=== PATIENT | female | born 1955 | race Caucasian/White ===

== ENCOUNTER 2016-08-11 16:55 | Emergency (ER) | payer MEDICARE, MEDICAID ==
[~2016-08-11] VITALS: Ht 170.2 cm; Wt 149.7 kg
[~2016-08-11 16:55] MED LIST: ALBU2.5V4 IH; AMLO5TAB2 PO; BUDE10.22 IH; BUDE6HFA IH; CRS350T PO; DCS100C PO; FEXO60TA PO; FURO20TA4 PO; FURO40TA4 PO; HYDR1TAB PO; INSU100I17 SQ; LISI40TA PO; MNTL10T PO; MORP60CA18 PO; MTL5T PO; NF-ESOM40C PO; PHEN15CA67 PO; PHENTERMINE PO; RT-COMBINH IH; THYR240T PO; TOPIRAMATE PO; WRF1T PO; WRF5T PO
--- OUTSIDE RECORDS SUMMARY | 2016-08-11 16:59 | XMS REPORT ---
Author Author SAMMY VENTURA eClinicalWorks Address Unknown Phone Unavailable Care Team Providers Care Pantry Attendant Name Role Phone SAMMY VENTURA CP Unavailable Allergies, Adverse Reactions, Alerts Substance Reaction Event Type Tetracycline HCl hives Drug Allergy Sulfamethoxazole-Trimethoprim lips swell Drug Allergy Penicillin V Potassium hives Drug Allergy Codeine Sulfate projectile vomiting Drug Allergy Problems Problem Type Condition Code Onset Dates Condition Status Problem Hypothyroidism, unspecified E03.9 Active Assessment Back muscle spasm M62.830 Active Problem High risk medication use Z79.899 Active Assessment High risk medication use Z79.899 Active Assessment Hypothyroidism, unspecified E03.9 Active Medications Medication Code System Code Instructions Start Date End Date Status Dosage Gabapentin [facility] [address]-57 600 MG Orally 2 times a day 1 tablet ProAir HFA [facility] [address]-88 108 (90 Base) MCG/ACT Inhalation every 4 hrs 2 puffs as needed Levothyroxine Sodium [facility] [address]-97 125 MCG Orally Once a day 1 tablet MS Contin [facility] [address]-16 30 MG Orally Nov 16, 2014 3 tabs BID x 3 days, 2 tabs am/3 tabs pm x 3 days, 2 tabs Bid x 3 days, 1 tab BID x 3days Albuterol Sulfate [facility] [address]-45 (2.5 MG/3ML) 0.083% Inhalation Three times a day 3 ml Baclofen [facility] [address]-89 20 MG Orally every 8 hrs Nov 16, 2014 Feb 14, 2015 1 tablet with food or milk Singulair [facility] [address]-05 10 MG Orally Once a day 1 tablet in the evening Amlodipine Besylate [facility] [address]-16 5 MG Orally Once a day 1 tablet NovoLog [facility] [address]-93 100 UNIT/ML Subcutaneous 3 times a day sliding scale Ibuprofen [facility] [address]-74 800 MG Orally Three times a day 1 tablet Lisinopril [facility] [address]-77 40 MG Orally Once a day 1 tablet Omeprazole [facility] [address]-46 40 MG Orally Once a day 1 capsule Combivent Respimat [facility] [address]-30 20-100 MCG/ACT Inhalation Four times a day 1 puff Procedures Procedure Coding System Code Date Office Visit, Est Pt., Level 3 CPT-4 27646 Nov 16, 2014 [facility] VISIT ESTABLISHED PATIENT CPT-4 G0467 Nov 16, 2014 Vital Signs Date/Time: Nov 16, 2014 Temperature 98.1 F Weight 248 lbs Height 65 in BMI 41.26 Index Blood Pressure Diastolic 78 mmHg Blood Pressure Systolic 134 mmHg Cardiac Monitoring Heart Rate 91 bpm Results No Known Results Summary Purpose eClinicalWorks Submission
--- OUTSIDE RECORDS SUMMARY | 2016-08-11 17:00 | XMS REPORT | Continuity of Care Document ---
Author Author [facility] Organization [facility] Address Unknown Phone Unavailable Allergies Active Description Code Type Severity Reaction Onset Reported/Identified Relationship to Patient Clinical Status Yes aspirin [id number] Drug Allergy Unknown NAUSEA 12/04/2011 Yes Penicillins [id number] Drug Allergy Unknown RASH 12/04/2011 Yes Sulfa (Sulfonamide Antibiotics) [id number] Drug Allergy Unknown RASH 12/04/2011 Yes tetracycline [id number] Drug Allergy Unknown RASH 12/04/2011 Medications Problems Date Dx Coded Attending Type Code Diagnosis Diagnosed By 12/06/2011 Ot 070.70 UNSPECIFIED VIRAL HEPATITIS C WITHOUT HE 12/06/2011 Ot 214.1 LIPOMA SKIN NEC 12/06/2011 Ot 250.00 DIAB TEREZA WO COMPL, TYPE II OR UNSPEC TY 12/06/2011 Ot 401.9 HYPERTENSION NOS 12/06/2011 Ot 428.0 CONGESTIVE HEART FAILURE NOS 12/06/2011 Ot 496 CHR AIRWAY OBSTRUCT NEC 12/06/2011 Ot 530.81 ESOPHAGEAL REFLUX 12/06/2011 Ot V58.61 ANTICOAGULANTS,LT,CURRENT USE 12/06/2011 Ot V58.69 OTH MED,LT,CURRENT USE 01/29/2015 Ot 214.1 01/29/2015 Ot 250.00 01/29/2015 Ot 401.9 01/29/2015 Ot 496 01/29/2015 Ot V15.82 01/29/2015 Ot V72.63 01/29/2015 Ot V72.83 01/29/2015 Ot V74.8 01/29/2015 KATJA REID MD Ot M51.16 INTERVERTEBRAL DISC DISORDERS W RADICULO 01/29/2015 KATJA REID MD Ot M53.3 SACROCOCCYGEAL DISORDERS, NOT ELSEWHERE 01/29/2015 KATJA REID MD Ot Z79.899 OTHER JAIL (CURRENT) DRUG THERAPY 03/15/2016 Ot 214.1 LIPOMA SKIN NEC 03/15/2016 Ot 250.00 DIAB TEREZA WO COMPL, TYPE II OR UNSPEC TY 03/15/2016 Ot 401.9 HYPERTENSION NOS 03/15/2016 Ot 496 CHR AIRWAY OBSTRUCT NEC 03/15/2016 Ot V15.82 HISTORY OF TOBACCO USE 03/15/2016 Ot V72.63 PRE-PROCEDURAL LABORATORY EXAMINATION 03/15/2016 Ot V72.83 EXAM PRE-OPERATIVE NEC 03/15/2016 Ot V74.8 SCREEN-BACTERIAL DIS NEC Procedures Results Encounters ACCT No. Visit Date/Time Discharge Status Pt. Type Provider Facility Loc./Unit Complaint [id number] 01/29/2015 07:56:00 2014 08:47:00 DIS Outpatient JEANETTE ERIC, KATJA Catalan [facility] CARD DISC DISORDER [id number] 03/21/2016 11:27:00 PEN Preadmit LEE GIVENS [facility] REHAB LT SHOULDER IMPINGEMENT SYNDROME [id number] 12/06/2011 05:31:00 Document Registration [id number] 12/04/2011 08:14:00 Document Registration
--- OUTSIDE RECORDS SUMMARY | 2016-08-11 17:00 | XMS REPORT ---
Author Author SAMMY VENTURA eClinicalWorks Address Unknown Phone Unavailable Care Team Providers Care Electric Utility Lineworker Name Role Phone SAMMY VENTURA CP Unavailable Allergies, Adverse Reactions, Alerts Substance Reaction Event Type Tetracycline HCl hives Drug Allergy Sulfamethoxazole-Trimethoprim lips swell Drug Allergy Penicillin V Potassium hives Drug Allergy Codeine Sulfate projectile vomiting Drug Allergy Problems Problem Type Condition ICD-9 Code Onset Dates Condition Status Assessment High risk medication use V58.69 Active Assessment Chronic hepatitis C 070.54 Active Assessment Hypothyroid 244.9 Active Medications Medication Code System Code Instructions Start Date End Date Status Dosage Levothyroxine Sodium [facility] [address]-54 125 MCG Orally Once a day 1 tablet Lisinopril [facility] [address]-78 40 MG Orally Once a day 1 tablet Amlodipine Besylate [facility] [address]-35 5 MG Orally Once a day 1 tablet NovoLog [facility] [address]-85 100 UNIT/ML Subcutaneous 3 times a day sliding scale Singulair [facility] [address]-09 10 MG Orally Once a day 1 tablet in the evening Albuterol Sulfate [facility] [address]-08 (2.5 MG/3ML) 0.083% Inhalation Three times a day 3 ml ProAir HFA [facility] [address]-41 108 (90 Base) MCG/ACT Inhalation every 4 hrs 2 puffs as needed Gabapentin [facility] [address]-77 600 MG Orally 2 times a day 1 tablet Omeprazole [facility] [address]-13 40 MG Orally Once a day 1 capsule Ibuprofen [facility] [address]-24 800 MG Orally Three times a day 1 tablet Combivent Respimat [facility] [address]-72 20-100 MCG/ACT Inhalation Four times a day 1 puff Morphine Sulfate [facility] [address]-10 60 MG Orally 2 times a day Nov 28, 2014 1 tablet Morphine Sulfate [facility] [address]-75 30 MG Orally 3 times a day 1 tablet as needed Soma [facility] [address]-45 350 MG Orally TID daily x 3 days then 1 tab BID x 3 days, then 1 tab daily x 3 days 1 tablet as needed Procedures Procedure Coding System Code Date No Charge CPT-4 10638 Oct 29, 2014 VENIPUNCT, ROUTINE* CPT-4 93231 Oct 29, 2014 LAB NOT BILLED BY [facility] CPT-4 NOBLL Oct 29, 2014 Office Visit, New Pt., Level 3 CPT-4 91846 Oct 29, 2014 [facility] VISIT NEW PATIENT CPT-4 G0466 Oct 29, 2014 Vital Signs Date/Time: Oct 29, 2014 Temperature 98.1 F Weight 243.0 lbs Height 65 in BMI 40.43 Index Blood Pressure Diastolic 98 mmHg Blood Pressure Systolic 156 mmHg Cardiac Monitoring Heart Rate 92 bpm Results Name Result Date Reference Range Unit Abnormality Flag ROUTINE VENIPUNCTURE HEP C PCR QUANT (Non-Graph) Summary Purpose eClinicalWorks Submission
--- OUTSIDE RECORDS SUMMARY | 2016-08-11 17:00 | XMS REPORT ---
Author Author SAMMY VENTURA [facility] eClinicalWorks Address Unknown Phone Unavailable Care Team Providers Care Node Js Developer Name Role Phone SAMMY VENTURA Unavailable Allergies, Adverse Reactions, Alerts Substance Reaction Event Type Tetracycline HCl hives Drug Allergy Sulfamethoxazole-Trimethoprim lips swell Drug Allergy Penicillin V Potassium hives Drug Allergy Codeine Sulfate projectile vomiting Drug Allergy Problems Problem Type Condition Code Onset Dates Condition Status Problem Hypothyroidism, unspecified E03.9 Active Assessment Other chronic pain G89.29 Active Problem High risk medication use Z79.899 Active Assessment Encounter for immunization Z23 Active Assessment Muscle spasm M62.838 Active Medications Medication Code System Code Instructions Start Date End Date Status Dosage MS Contin [facility] [address]-89 15 MG Orally every 12 hrsx 7 days then 1 tablet daily at bedtime x 7 days Nov 27, 2014 1 tablet Amlodipine Besylate [facility] [address]-05 5 MG Orally Once a day 1 tablet Levothyroxine Sodium [facility] [address]-11 125 MCG Orally Once a day 1 tablet ProAir HFA [facility] [address]-38 108 (90 Base) MCG/ACT Inhalation every 4 hrs 2 puffs as needed Gabapentin [facility] [address]-96 600 MG Orally 2 times a day 1 tablet NovoLog [facility] [address]-75 100 UNIT/ML Subcutaneous 3 times a day sliding scale Combivent Respimat [facility] [address]-94 20-100 MCG/ACT Inhalation Four times a day 1 puff Albuterol Sulfate [facility] [address]-76 (2.5 MG/3ML) 0.083% Inhalation Three times a day 3 ml Parafon Forte DSC [facility] [address]-18 500 MG Orally Three times a day NovFeb 25, 2015 1 tablet Omeprazole [facility] [address]-09 40 MG Orally Once a day 1 capsule MS Contin [facility] [address]-66 30 MG Orally Nov 16, 2014 3 tabs BID x 3 days, 2 tabs am/3 tabs pm x 3 days, 2 tabs Bid x 3 days, 1 tab BID x 3days Singulair [facility] [address]-16 10 MG Orally Once a day 1 tablet in the evening Ibuprofen [facility] [address]-21 800 MG Orally Three times a day 1 tablet Lisinopril [facility] [address]-55 40 MG Orally Once a day 1 tablet Procedures Procedure Coding System Code Date FLUARIX QUAD (3 & UP)-GSK-2014 CPT-4 70926 Nov 27, 2014 SINGLE IMMUNIZATION ADMIN CPT-4 48635 Nov 27, 2014 ADMN FLU VAC NO FEE SCHED SAME DAY CPT-4 G0008 Nov 27, 2014 Office Visit, Est Pt., Level 3 CPT-4 42302 Nov 27, 2014 [facility] VISIT ESTABLISHED PATIENT CPT-4 G0467 Nov 27, 2014 Vital Signs Date/Time: Nov 27, 2014 Temperature 98.0 F Weight 246 lbs Height 65 in BMI 40.93 Index Blood Pressure Diastolic 70 mmHg Blood Pressure Systolic 114 mmHg Cardiac Monitoring Heart Rate 88 bpm Results No Known Results Immunizations Vaccine Administration Date FLUARIX QUAD (3 & UP)-GSK-2014Nov 27, 2014 Summary Purpose eClinicalWorks Submission
--- NOTE | 2016-08-11 17:01 | ED Lower Extremity ---
General Stated Complaint: FOOT PAIN Source: patient Exam Limitations: no limitations History of Present Illness Time seen by provider: 17:00 Initial Comments To ER per EMS from home with one week of progressive left ankle pain after twisting it. Onset: just prior to arrival Pain/Injury Location: left ankle, left heel Method of Injury: twisted Modifying Factors: Worse With Movement Allergies and Home Medications Allergies Coded Allergies: Penicillins (Unverified Allergy, Unknown, RASH, 08/11/16) Sulfa (Sulfonamide Antibiotics) (Unverified Allergy, Unknown, RASH, ) aspirin (Unverified Allergy, Unknown, NAUSEA, 08/11/16) codeine (Verified Allergy, Unknown, 08/11/16) tetracycline (Unverified Allergy, Unknown, RASH, 08/11/16) Home Medications Albuterol Sulfate 0.83 Mg/Ml Solution, 0.83 MG IH DAILY, (Reported) Amlodipine Besylate 5 Mg Tablet, 5 MG PO DAILY, (Reported) Budesonide/Formoterol Fumarate 10.2 Gm Hfa.aer.ad, 2 PUFF IH BID, (Reported) Carisoprodol 350 Mg Tablet, 1 TAB PO TID, (Reported) Docusate Sodium 100 Mg Capsule, 100 MG PO DAILY PRN, (Reported) Esomeprazole Mag Trihydrate 40 Mg Capsule.dr, 1 CAP PO DAILY, (Reported) Fexofenadine Hcl 60 Mg Tablet, 2 EACH PO BID, (Reported) Furosemide 20 Mg Tablet, 1 EACH PO DAILY, (Reported) Hydrocodone Bit/Acetaminophen 1 Each Tablet, 1-2 EACH PO Q4-6HRS PRN, (Reported) MAY TAKE 1 OR 2 TABS BY MOUTH EVERY 4-6 HRS NEEDED FOR BREAKTHROUGH PAIN. DO NOT EXCEED 3000 MG TYLENOL (ACETAMINOPHEN)IN 24 HR PERIOD Insulin Aspart 100 Unit/1 Ml Insuln.pen, 5 UNIT SQ SLIDING SCALE PRN, (Reported) USES SLIDING SCALE TO DOSE Ipratropium/Albuterol Sulfate 14.7 Gm Aer.w.adap, 2 PUFF IH Q8HR PRN, (Reported) Lisinopril 40 Mg Tablet, 40 MG PO DAILY, (Reported) Metolazone 5 Mg Tab, 1 EACH PO DAILY, (Reported) Montelukast Sodium 10 Mg Tablet, 1 TAB PO DAILY, (Reported) Morphine Sulfate 60 Mg Cap.er.pel, 60 MG PO BID, (Reported) Phentermine Hcl 15 Mg Capsule, 30 MG PO DAILY, (Reported) CURRENTLY NOT TAKING Thyroid,Pork 240 Mg Tablet, 240 MG PO DAILY, (Reported) Warfarin Sod 1 Mg Tab, 1 MG PO DAILY@18, (Reported) [Topiramate/Phenter] , 1 TAB PO DAILY, (Reported) Constitutional: see HPI EENTM: see HPI Respiratory: no symptoms reported Cardiovascular: no symptoms reported Genitourinary: no symptoms reported Musculoskeletal: see HPI Skin: no symptoms reported Psychiatric/Neurological: No Symptoms Reported Past Bzahgxx-Mulajg-Yyxtow Hx Immunizations Up To Date Date of Pneumonia Vaccine: Feb 12, 2009 Respiratory Hx Respiratory Disorders: Yes Cardiovascular Hx Cardiac Disorders: Yes (CHF) Neurological Hx Neurological Disorders: Yes (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, CAUSES FREQ HEADACHES) Genitourinary Hx Genitourinary Disorders: Yes (IN AUGUST IN HOSITAL WITH KIDNEY INFECTION) Gastrointestinal Hx Gastrointestinal Disorders: Yes (APPY) Musculoskeletal Hx Musculoskeletal Disorders: Yes (SEVERAL BROKEN BONE, DDD IN BACK) Endocrine Hx Endocrine Disorders: Yes HEENT HX ENT Disorders: Yes (NO TEETH) Physical Exam Vital Signs Vital Sign - Last 12Hours 08/11/16 17:01 Temp 98.0 Pulse 89 Resp 16 B/P (MAP) 145/87 Pulse Ox 91 Capillary Refill : General Appearance: WD/WN, no apparent distress HEENT: PERRL/EOMI, normal ENT inspection Neck: non-tender, full range of motion Respiratory: no respiratory distress, no accessory muscle use Gastrointestinal: non tender, soft Hips: bilateral hip non-tender, bilateral hip normal inspection, bilateral hip normal range of motion Legs: bilateral leg non-tender, bilateral leg normal inspection, bilateral leg normal range of motion Knees: bilateral knee non-tender, bilateral knee normal inspection, bilateral knee normal range of motion Ankles: left ankle pain, left ankle soft tissue tenderness, left ankle other ( there is no swelling or ecchymosis or erythema at this time. 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 Decision time for Depature: 17:45 Referrals: LEE GIVENS (PCP) Primary Care Physician [facility] (Family) Primary Care Physician Patient Instructions: Ankle Sprain (DC) Add. Discharge Instructions: 1. Daniel wrap to the ankle 2. Follow-up with your doctor next week. If you have persistent pain or instability of the ankle U should discuss an MRI 2. FLETCHER PETE APRN Aug 11, 2016 17:01
[2016-08-11 17:30] VITALS: BP 142/82
--- NOTE | 2016-08-11 17:34 | Diagnostic Imaging Report ---
INDICATION: Pain after fall. EXAMINATION: Three views of the left ankle were obtained. FINDINGS: The alignment is normal. There is no fracture or dislocation. Soft tissues are unremarkable. IMPRESSION: No focal abnormality of the left ankle. Dictated by: Dictated on workstation # [id number]
[2016-08-11] MEDS ORDERED: HYDROcodone/APAP 5 MG/325 MG (LORTAB) TAB PO ONE (18:00)
== END 2016-08-11 17:30 | disposition home or self-care (01) ==
LOC: EDUNIT# 16:55 → ER 16:56
DX: S93.402A Sprain of unspecified ligament of left ankle, initial encounter (principal); I50.9 Heart failure, unspecified; M51.9 Unspecified thoracic, thoracolumbar and lumbosacral intervertebral disc disorder; Z87.09 Personal history of other diseases of the respiratory system; Z79.01 Long term (current) use of anticoagulants; Z89.422 Acquired absence of other left toe(s); X50.0XXA Overexertion from strenuous movement or load, initial encounter
CPT/HCPCS: 73610; 99283

== ENCOUNTER → 2016-08-17 | Outpatient (CLI) | payer MEDICARE, MEDICAID ==
--- NOTE | 2016-08-17 17:25 | Diagnostic Imaging Report ---
INDICATION: Left ankle strain, leg pain, history of DVT. EXAMINATION: Left lower extremity venous Doppler, 08/17/2016. TECHNIQUE: Waveform and spectral analysis of the lower extremity venous structures. FINDINGS: There is no evidence for deep vein thrombosis with normal compressibility, augmentation and spontaneity of all visualized venous structures. 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 IMPRESSION: 1. No evidence for deep vein thrombosis. 2. 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 However, this could be followed clinically and better evaluated with MRI if clinically warranted on a nonemergent basis. Dictated by: Dictated on workstation # [id number]
== END ==
LOC: RAD 16:57
PROVIDERS: ATTEND Nurse Practitioner Family
DX: M71.22 Synovial cyst of popliteal space [Baker], left knee (principal); Z86.718 Personal history of other venous thrombosis and embolism; M79.672 Pain in left foot

== ENCOUNTER → 2016-08-25 | Outpatient (CLI) | payer MEDICARE, MEDICAID ==
--- NOTE | 2016-08-25 10:53 | Diagnostic Imaging Report ---
PROCEDURE: MRI left joint lower extremity without contrast. TECHNIQUE: Multiplanar, multisequence non contrast-enhanced MRI of the left ankle was accomplished. INDICATION: Left ankle pain and injury. FINDINGS: There is mild thickening in the Achilles tendon with increased signal. This is suggestive of tendinosis or intrasubstance low-grade partial tear. The peroneal tendons appear unremarkable. The flexor hallucis longus demonstrate a small amount of fluid in the tendon sheath at the level of the joint probably from communication with the joint fluid rather than related to injury or tenosynovitis. The other flexor tendons appear unremarkable. The extensors tendons also appear unremarkable. There is subcutaneous edema seen around the dorsum of the ankle foot junction area. The joint alignment is satisfactory. There is minimal marrow signal abnormality in the distal fibula, could related to a mild contusion. The anterior and posterior talofibular ligaments appear intact. The calcaneofibular ligament appears intact. The deltoid ligament components appear grossly unremarkable. The plantar fascia demonstrates minimal thickening and adjacent edema. This could relate to injury or plantar fasciitis. There is increased signal along the calcaneonavicular ligament, may relate to a sprain. IMPRESSION: 1. Low-grade intrasubstance tear or tendinosis within the distal Achilles tendon. 2. Mild sprain in the calcaneonavicular ligament. 3. Slight edema along the plantar fascia could relate to a sprain or mild plantar fasciitis. 4. Minimal contusion in the distal fibula. Dictated by: Dictated on workstation # [id number]
--- NOTE | 2016-08-25 11:39 | Diagnostic Imaging Report ---
PROCEDURE: MR imaging left lower extremity without contrast. TECHNIQUE: Multiplanar, multisequence non contrast enhanced MR imaging of the left lower extremity was accomplished. INDICATION: Left ankle and foot pain after injury. FINDINGS: There is a prior amputation of the great toe at the metatarsophalangeal joint level. There is a deformity and subluxation along the second metatarsophalangeal joint with angulation in a varus direction. There is associated prominent bone marrow edema in the head of the second metatarsal which is likely reactive and degenerative, with contribution from mechanical stress secondary to the joint deformity. There is also bone marrow edema within the adjacent proximal phalanx of the third toe which is involved in mild varus deformity and is abutting the head of the second metatarsal and the signal abnormality is likely stress related to the altered anatomy and degenerative. There is no evidence of an acute fracture. The Lisfranc ligament appears intact. The joint alignment at the tarsometatarsal joints is normal. There is subcutaneous edema around the foot most prominent in the midfoot dorsally and along the plantar aspect. Some of the edema extends near the flexor and extensor tendons without evidence of a tendon injury. There is a focal loculated fluid measuring 1.3 x 0.5 x 1.8 CM seen along the plantar aspect of the head of the first metatarsal superficial to the tendinous insertion and ligament at this level likely related to a ganglion cyst. IMPRESSION: 1. There is nonspecific soft tissue edema mostly around the midfoot, could be posttraumatic. 2. Bone marrow edema in the head of the second metatarsal and proximal phalanx of the third toe is probably stress related and reactive to the altered anatomy and deformities as described above. No acute fracture or ligamentous injury identified. 3. Suggestion of a ganglion cyst along the plantar aspect at the level of the head of the first metatarsal. Dictated by: Dictated on workstation # [id number]
== END ==
LOC: RAD 09:11
PROVIDERS: ATTEND Nurse Practitioner Family
DX: M67.972 Unspecified disorder of synovium and tendon, left ankle and foot (principal); S93.692A Other sprain of left foot, initial encounter; M85.862 Other specified disorders of bone density and structure, left lower leg; X58.XXXA Exposure to other specified factors, initial encounter; Y99.8 Other external cause status
CPT/HCPCS: 73721

== ENCOUNTER 2016-12-12 21:15 | Emergency (ER) | payer MEDICARE, MEDICAID ==
[~2016-12-12] VITALS: Ht 170.2 cm; Wt 149.7 kg
[2016-12-12] MEDS ORDERED: TETANUS,DIPTH,PERTUSS P/F (BOOSTRIX) 0.5 ML VIAL IM ONE (21:16)
[2016-12-12] MEDS ORDERED: LIDOCAINE 1% INJ 20 ML (XYLOCAINE) VIAL ONE (21:16)
--- OUTSIDE RECORDS SUMMARY | 2016-12-12 21:23 | XMS REPORT ---
Author Author KEITH HINKLE Organization [facility] Address [address] [place] [address] Care Team Providers Care Mottler Operator Name Role Phone KEITH HINKLE Unavailable PROBLEMS Type Condition ICD9-CM Code [id number] Code Onset Dates Condition Status SNOMED Code Problem Pain in right shoulder M25.511 Active 907777203 Problem Essential hypertension I10 Active 35085866 Problem Other chronic pain G89.29 Active 62813801 Problem Onychomycosis B35.1 Active 395538990 Problem Type 2 diabetes mellitus with diabetic neuropathy, unspecified ad terminal makeup operator insulin use status E11.40 Active 31063769 Problem Renal insufficiency N28.9 Active 657365535 Problem Acquired hypothyroidism E03.9 Active 168287671 Problem Seasonal allergic rhinitis due to pollen J30.1 Active 96633066 Problem Type 2 diabetes mellitus with other skin complications E11.628 Active 95423653 Problem Thrombocytopenia D69.6 Active 762224641 Problem High risk medication use Z79.899 Active 015167675 Problem Hepatitis C antibody positive in blood R76.8 Active 322813552 Problem [facility] current use of insulin Z79.4 Active 675754529 Problem Chronic obstructive pulmonary disease, unspecified COPD type J44.9 Active 05045288 Problem Cervicalgia M54.2 Active 8421958721311 Problem Type 2 diabetes mellitus with diabetic polyneuropathy E11.42 Active 94450359 Problem Pain in left shoulder M25.512 Active 15778370 ALLERGIES Unknown Allergies SOCIAL HISTORY No smoking Hx information available PLAN OF CARE VITAL SIGNS MEDICATIONS Medication Instructions Dosage Frequency Start Date End Date Duration Status Test strips Test Strips as directed Feb, Active Glucometer 1 as directed Feb, Active Bydureon 2 MG Subcutaneous once weekly Inject 2mg Feb, Active RESULTS No Results PROCEDURES No Known procedures IMMUNIZATIONS No Known Immunizations
--- OUTSIDE RECORDS SUMMARY | 2016-12-12 21:23 | XMS REPORT ---
Author Author KEITH HINKLE [facility] Address [address] [place] [address] Care Team Providers Care Hay Stacker Name Role Phone KEITH HINKLE Unavailable PROBLEMS Type Condition ICD9-CM Code [id number] Code Onset Dates Condition Status SNOMED Code Problem Acquired hypothyroidism E03.9 Active 206164956 Problem rn long term care current use of insulin Z79.4 Active 690853238 Problem Essential hypertension I10 Active 32014387 Problem Type 2 diabetes mellitus with diabetic neuropathy, unspecified termite renewal inspector insulin use status E11.40 Active 14147776 Problem Onychomycosis B35.1 Active 981418342 Problem Renal insufficiency N28.9 Active 782704287 Problem Type 2 diabetes mellitus with diabetic polyneuropathy E11.42 Active 13247477 Problem Type 2 diabetes mellitus with other skin complications E11.628 Active 72035541 Problem Seasonal allergic rhinitis due to pollen J30.1 Active 48340262 Problem Thrombocytopenia D69.6 Active 441778456 Problem High risk medication use Z79.899 Active 278327116 Problem Cervicalgia M54.2 Active 3046347627685 Problem Other chronic pain G89.29 Active 37210983 Problem Pain in right shoulder M25.511 Active 244971664 Problem Hepatitis C antibody positive in blood R76.8 Active 415839840 Problem Pain in left shoulder M25.512 Active 80558398 Problem Chronic obstructive pulmonary disease, unspecified COPD type J44.9 Active 54279496 ALLERGIES Substance Reaction Event Type Date Status Tetracycline HCl hives Drug Allergy Jan, Active Sulfamethoxazole-Trimethoprim lips swell Drug Allergy Jan, Active Penicillin V Potassium hives Drug Allergy Jan, Active Codeine Sulfate projectile vomiting Drug Allergy Jan, Active SOCIAL HISTORY No smoking Hx information available PLAN OF CARE Activity Details Follow Up 3 Weeks Reason:DM/Thyroid VITAL SIGNS Height 65 in 2016-02-10 Weight 287.8 lbs 2016-02-10 Temperature 97.8 degrees Fahrenheit 2016-02-10 Heart Rate 94 bpm 2016-02-10 Respiratory Rate 20 2016-02-10 BMI 47.89 kg/m2 2016-02-10 Blood pressure systolic 162 mmHg 2016-02-10 Blood pressure diastolic 92 mmHg 2016-02-10 MEDICATIONS Medication Instructions Dosage Frequency Start Date End Date Duration Status Losartan Potassium 50 MG Orally Once a day 1 tablet 24h Jan, 30 day(s) Active Gabapentin 800 MG Orally 2 times a day 1 tablet 12h Active Cyclobenzaprine HCl 10 MG Orally Three times a day 1 tablet 8h Active RESULTS Name Result Date Reference Range TSH 2016-02-10 TSH 48.530 0.450-4.500 CBC 2016-02-10 WBC 5.4 3.4-10.8 RBC 4.83 3.77-5.28 Hemoglobin 14.9 11.1-15.9 Hematocrit 44.8 34.0-46.6 MCV 93 79-97 MCH 30.8 26.6-33.0 MCHC 33.3 31.5-35.7 RDW 15.1 12.3-15.4 Platelets 118 150-379 Neutrophils 70 Lymphs 22 Monocytes 7 Eos 1 Basos 0 Immature Cells Neutrophils (Absolute) 3.7 1.4-7.0 Lymphs (Absolute) 1.2 0.7-3.1 Monocytes(Absolute) 0.4 0.1-0.9 Eos (Absolute) 0.0 0.0-0.4 Baso (Absolute) 0.0 0.0-0.2 Immature Granulocytes 0 Immature Grans (Abs) 0.0 0.0-0.1 NRBC Hematology Comments: Note: LIPID PANEL 2016-02-10 Cholesterol, Total 153 100-199 Triglycerides 118 0-149 HDL Cholesterol 45 >39 VLDL Cholesterol Philippe 24 5-40 LDL Cholesterol Calc 84 0-99 CMP 2016-02-10 Glucose, Serum 75 65-99 BUN 19 6-24 Creatinine, Serum 1.16 0.57-1.00 eGFR If NonAfricn Am 52 >59 eGFR If Africn Am 60 >59 BUN/Creatinine Ratio 16 9-23 Sodium, Serum 138 134-144 Potassium, Serum 4.4 3.5-5.2 Chloride, Serum 102 96-106 Carbon Dioxide, Total 23 18-29 Calcium, Serum 10.1 8.7-10.2 Protein, Total, Serum 8.7 6.0-8.5 Albumin, Serum 4.2 3.5-5.5 Globulin, Total 4.5 1.5-4.5 A/G Ratio 0.9 1.1-2.5 Bilirubin, Total 0.6 0.0-1.2 Alkaline Phosphatase, S 121 39-117 AST (SGOT) 37 0-40 ALT (SGPT) 29 0-32 A1C (IN HOUSE) 2016-02-10 A1C IN HOUSE 5.3 4.3 - 5.6 % Previous A1c Lot [id number] Exp date HEP C RNA QUANT ([facility] ONLY) Xray : Shoulder, Left 2 view (IN HOUSE) 2016-02-10 Xray : Shoulder, Right 2 view (IN HOUSE) 2016-02-10 Xray : Spine, Cervical (IN HOUSE) 2016-02-10 PROCEDURES Procedure Date Ordered Related Diagnosis Body Site GLYCATED HEMOGLOBIN TEST Feb 10, 2016 [facility], [facility] VENIPUNCT, ROUTINE* Feb 10, 2016 Office Visit, Est Pt., Level 5 Feb 10, 2016 X-RAY EXAM OF SHOULDER Feb 10, 2016 HEP C RNA QUANT ([facility] ONLY) Feb 10, 2016 [facility]Q VISIT ESTABLISHED PATIENT Feb 10, 2016 X-RAY EXAM OF NECK SPINE Feb 10, 2016 IMMUNIZATIONS No Known Immunizations
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
--- OUTSIDE RECORDS SUMMARY | 2016-12-12 21:25 | XMS REPORT ---
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 E11.40 Active 82551438 Problem Renal insufficiency N28.9 Active 478441268 Problem Acquired hypothyroidism E03.9 Active 358061769 Problem Seasonal allergic rhinitis due to pollen J30.1 Active 40294635 Problem Type 2 diabetes mellitus with other skin complications E11.628 Active 30951852 Problem Thrombocytopenia D69.6 Active 226588624 Problem High risk medication use Z79.899 Active 389728118 Problem Hepatitis C antibody positive in blood R76.8 Active 376413441 Problem [facility] current use of insulin Z79.4 Active 932821686 Problem Chronic obstructive pulmonary disease, unspecified COPD type J44.9 Active 45425834 Problem Cervicalgia M54.2 Active 0774450986528 Problem Type 2 diabetes mellitus with diabetic polyneuropathy E11.42 Active 69662720 Problem Pain in left shoulder M25.512 Active 12724378 ALLERGIES Unknown Allergies SOCIAL HISTORY No smoking Hx information available PLAN OF CARE VITAL SIGNS MEDICATIONS Medication Instructions Dosage Frequency Start Date End Date Duration Status Levothyroxine Sodium 125 mcg Orally Once a day 1 tablet 24h 30 days Active Cyclobenzaprine HCl 10 mg Orally twice a day as needed 1 tablet Feb, Feb, 21 days Active RESULTS No Results PROCEDURES No Known procedures IMMUNIZATIONS No Known Immunizations
--- OUTSIDE RECORDS SUMMARY | 2016-12-12 21:27 | XMS REPORT | Continuity of Care Document ---
Author Author [facility] Organization [facility] Address Unknown Phone Unavailable Allergies Active Description Code Type Severity Reaction Onset Reported/Identified Relationship to Patient Clinical Status Yes aspirin [id number] Drug Allergy Unknown NAUSEA 08/11/2016 Yes codeine [id number] Drug Allergy Unknown N/A 08/11/2016 Yes Penicillins [id number] Drug Allergy Unknown RASH 08/11/2016 Yes Sulfa (Sulfonamide Antibiotics) [id number] Drug Allergy Unknown RASH 08/11/2016 Yes tetracycline [id number] Drug Allergy Unknown RASH 08/11/2016 Medications Problems Date Dx Coded Attending Type [...] 01/29/2015 KATJA REID MD Ot Z79.899 OTHER SUPERVISOR SHEARING (CURRENT) DRUG THERAPY 03/15/2016 Ot 214.1 LIPOMA SKIN NEC 03/15/2016 Ot 250.00 DIAB TEREZA WO COMPL, TYPE II OR UNSPEC TY 03/15/2016 Ot 401.9 HYPERTENSION NOS 03/15/2016 Ot 496 CHR AIRWAY OBSTRUCT NEC 03/15/2016 Ot V15.82 HISTORY OF TOBACCO USE 03/15/2016 Ot V72.63 PRE-PROCEDURAL LABORATORY EXAMINATION 03/15/2016 Ot V72.83 EXAM PRE-OPERATIVE NEC 03/15/2016 Ot V74.8 SCREEN-BACTERIAL DIS NEC 08/11/2016 FLETCHER PETE APRN Ot I50.9 HEART FAILURE, UNSPECIFIED 08/11/2016 FLETCHER PETE APRN Ot M25.572 PAIN IN LEFT ANKLE AND JOINTS OF LEFT FO 08/11/2016 FLETCHER PETE APRN Ot M51.9 UNSP THORACIC, THORACOLUM AND LUMBOSACR 08/11/2016 FLETCHER PETE APRN Ot S93.402A SPRAIN OF UNSPECIFIED LIGAMENT OF LEFT A 08/11/2016 FLETCHER PETE APRN Ot X50.0XXA OVEREXERTION FROM STRENUOUS MOVEMENT OR 08/11/2016 FLETCHER PETE APRN Ot Z79.01 [facility] (CURRENT) USE OF ANTICOAGULANT 08/11/2016 FLETCHER PETE APRN Ot Z87.09 PERSONAL HISTORY OF OTHER DISEASES OF TH 08/11/2016 FLETCHER PETE APRN Ot Z89.422 ACQUIRED ABSENCE OF OTHER LEFT TOE(S) 08/14/2016 FLETCHER PETE APRN Ot I50.9 HEART FAILURE, UNSPECIFIED 08/14/2016 FLETCHER PETE APRN Ot M25.572 PAIN IN LEFT ANKLE AND JOINTS OF LEFT FO 08/14/2016 FLETCHER PETE APRN Ot M51.9 UNSP THORACIC, THORACOLUM AND LUMBOSACR 08/14/2016 FLETCHER PETE APRN Ot S93.402A SPRAIN OF UNSPECIFIED LIGAMENT OF LEFT A 08/14/2016 FLETCHER PETE APRN Ot X50.0XXA OVEREXERTION FROM STRENUOUS MOVEMENT OR 08/14/2016 FLETCHER PETE APRN Ot Z79.01 [facility] (CURRENT) USE OF ANTICOAGULANT 08/14/2016 FLETCHER PETE APRN Ot Z87.09 PERSONAL HISTORY OF OTHER DISEASES OF 08/14/2016 FLETCHER PETE APRN Ot Z89.422 ACQUIRED ABSENCE OF OTHER LEFT TOE(S) 08/17/2016 FLETCHER PETE APRN Ot I50.9 HEART FAILURE, UNSPECIFIED 08/17/2016 FLETCHER PETE APRN Ot M25.572 PAIN IN LEFT ANKLE AND JOINTS OF LEFT FO 08/17/2016 FLETCHER PETE APRN Ot M51.9 UNSP THORACIC, THORACOLUM AND LUMBOSACR 08/17/2016 FLETCHER PETE APRN Ot S93.402A SPRAIN OF UNSPECIFIED LIGAMENT OF LEFT A 08/17/2016 FLETCHER PETE APRN Ot X50.0XXA OVEREXERTION FROM STRENUOUS MOVEMENT OR 08/17/2016 FLETCHER PETE APRN Ot Z79.01 [facility] (CURRENT) USE OF ANTICOAGULANT 08/17/2016 FLETCHER PETE APRN Ot Z87.09 PERSONAL HISTORY OF OTHER DISEASES OF TH 08/17/2016 FLETCHER PETE APRN Ot Z89.422 ACQUIRED ABSENCE OF OTHER LEFT TOE(S) 08/17/2016 Ot 214.1 LIPOMA SKIN NEC 08/17/2016 Ot 250.00 DIAB TEREZA WO COMPL, TYPE II OR UNSPEC TY 08/17/2016 Ot 401.9 HYPERTENSION NOS 08/17/2016 Ot 496 CHR AIRWAY OBSTRUCT NEC 08/17/2016 Ot V15.82 HISTORY OF TOBACCO USE 08/17/2016 Ot V72.63 PRE-PROCEDURAL LABORATORY EXAMINATION 08/17/2016 Ot V72.83 EXAM PRE-OPERATIVE NEC 08/17/2016 Ot V74.8 SCREEN-BACTERIAL DIS NEC 08/17/2016 JODI JACOB TELEPHONE SURVEYOR Ot M79.672 PAIN IN LEFT FOOT 08/18/2016 JODI JACOB TELEPHONE SURVEYOR Ot M71.22 SYNOVIAL CYST OF POPLITEAL SPACE [[place] ] 08/18/2016 JODI JACOB TELEPHONE SURVEYOR Ot M79.672 PAIN IN LEFT FOOT 08/18/2016 JODI JACOB APRN Ot Z86.718 PERSONAL HISTORY OF OTHER VENOUS THROMBO 08/31/2016 JODI JACOB TELEPHONE SURVEYOR Ot M67.972 UNSP DISORDER OF SYNOVIUM AND TENDON, LE 08/31/2016 JODI JACOB APRN Ot M85.862 OTH DISRD OF BONE DENSITY AND STRUCTURE , 08/31/2016 NIDIA, JODI M TELEPHONE SURVEYOR Ot S93.692A OTHER SPRAIN OF LEFT FOOT, INITIAL ENCOU 08/31/2016 JODI JACOB TELEPHONE SURVEYOR Ot X58.XXXA EXPOSURE TO OTHER SPECIFIED FACTORS, INI 08/31/2016 JODI JACOB TELEPHONE SURVEYOR Ot Y99.8 OTHER EXTERNAL CAUSE STATUS 09/08/2016 JODI JACOB TELEPHONE SURVEYOR Ot M71.22 SYNOVIAL CYST OF POPLITEAL SPACE [[place] ] 09/08/2016 JODI JACOB TELEPHONE SURVEYOR Ot M79.672 PAIN IN LEFT FOOT 09/08/2016 JODI JACOB TELEPHONE SURVEYOR Ot Z86.718 PERSONAL HISTORY OF OTHER VENOUS THROMBO 09/15/2016 JODI JACOB TELEPHONE SURVEYOR Ot M67.972 UNSP DISORDER OF SYNOVIUM AND TENDON, LE 09/15/2016 JODI JACOB TELEPHONE SURVEYOR Ot M85.862 OTH DISRD OF BONE DENSITY AND STRUCTURE , 09/15/2016 JODI JACOB TELEPHONE SURVEYOR Ot S93.692A OTHER SPRAIN OF LEFT FOOT, INITIAL ENCOU 09/15/2016 JODI JACOB TELEPHONE SURVEYOR Ot X58.XXXA EXPOSURE TO OTHER SPECIFIED FACTORS, INI 09/15/2016 JODI JACOB TELEPHONE SURVEYOR Ot Y99.8 OTHER EXTERNAL CAUSE STATUS 09/15/2016 JODI JACOB TELEPHONE SURVEYOR Ot M71.22 SYNOVIAL CYST OF POPLITEAL SPACE [[place] ] 09/15/2016 JODI JACOB TELEPHONE SURVEYOR Ot M79.672 PAIN IN LEFT FOOT 09/15/2016 JODI JACOB TELEPHONE SURVEYOR Ot Z86.718 PERSONAL HISTORY OF OTHER VENOUS THROMBO 09/22/2016 JODI JACOB TELEPHONE SURVEYOR Ot M67.972 UNSP DISORDER OF SYNOVIUM AND TENDON, LE 09/22/2016 JODI JACOB TELEPHONE SURVEYOR Ot M85.862 OTH DISRD OF BONE DENSITY AND STRUCTURE , 09/22/2016 JODI JACOB TELEPHONE SURVEYOR Ot S93.692A OTHER SPRAIN OF LEFT FOOT, INITIAL ENCOU 09/22/2016 JODI JACOB TELEPHONE SURVEYOR Ot X58.XXXA EXPOSURE TO OTHER SPECIFIED FACTORS, INI 09/22/2016 JODI JACOB TELEPHONE SURVEYOR Ot Y99.8 OTHER EXTERNAL CAUSE STATUS Procedures Results Encounters ACCT No. Visit Date/Time Discharge Status Pt. Type Provider Facility Loc./Unit Complaint [id number] 08/25/2016 09:11:00 2016 23:59:59 CLS Outpatient JODI JACOB TELEPHONE SURVEYOR [facility] RAD LEFT ANKLE INJ [id number] 08/17/2016 16:57:00 2016 23:59:59 CLS Outpatient JODI JACOB TELEPHONE SURVEYOR [facility] RAD HX OF DVT, ERYTHEMA [id number] 08/11/2016 16:56:00 2016 17:30:00 DIS Emergency FLETCHER PETE TELEPHONE SURVEYOR [facility] ER FOOT PAIN [id number] 03/21/2016 11:27:00 2016 23:59:59 CLS Preadmit LEE GIVENS [facility] REHAB LT SHOULDER IMPINGEMENT SYNDROME [id number] 01/29/2015 07:56:00 2014 08:47:00 DIS Outpatient KATJA REID MD [facility] CARD DISC DISORDER [id number] 12/06/2011 05:31:00 Document Registration [id number] 12/04/2011 08:14:00 Document Registration
--- NOTE | 2016-12-12 21:44 | ED Head Injury ---
General Chief Complaint: Laceration Stated Complaint: HEAD LACERATION FROM TREE LIMB Nursing Triage Note: reports grandkids playing with sticks and were fighting with them like swords and accidently got hit in the head Source: patient Exam Limitations: no limitations History of Present Illness Time seen by provider: 21:39 Initial Comments The patient is a 61-year-old white female who presents with her daughter. Her grandchildren were apparently using sticks from the yard to sword fight. She walked too close to the tidy and was struck on the left occipital area. This staggered her but did not cause her to fall. Occurred: just prior to arrival Location: occipital Method of Injury: direct blow Loss of Consciousness: no loss of consciousness Allergies and Home Medications Allergies Coded Allergies: Penicillins (Unverified Allergy, Unknown, RASH, 08/11/16) Sulfa (Sulfonamide Antibiotics) (Unverified Allergy, Unknown, RASH, ) aspirin (Unverified Allergy, Unknown, NAUSEA, 08/11/16) codeine (Verified Allergy, Unknown, 08/11/16) tetracycline (Unverified Allergy, Unknown, RASH, 08/11/16) Home Medications Albuterol Sulfate 0.83 Mg/Ml Solution, 0.83 MG IH DAILY, (Reported) Amlodipine Besylate 5 Mg Tablet, 5 MG PO DAILY, (Reported) Budesonide/Formoterol Fumarate 10.2 Gm Hfa.aer.ad, 2 PUFF IH BID, (Reported) Carisoprodol 350 Mg Tablet, 1 TAB PO TID, (Reported) Docusate Sodium 100 Mg Capsule, 100 MG PO DAILY PRN, (Reported) Esomeprazole Mag Trihydrate 40 Mg Capsule.dr, 1 CAP PO DAILY, (Reported) Fexofenadine Hcl 60 Mg Tablet, 2 EACH PO BID, (Reported) Furosemide 20 Mg Tablet, 1 EACH PO DAILY, (Reported) Hydrocodone Bit/Acetaminophen 1 Each Tablet, 1-2 EACH PO Q4-6HRS PRN, (Reported) MAY TAKE 1 OR 2 TABS BY MOUTH EVERY 4-6 HRS NEEDED FOR BREAKTHROUGH PAIN. DO NOT EXCEED 3000 MG TYLENOL (ACETAMINOPHEN)IN 24 HR PERIOD Insulin Aspart 100 Unit/1 Ml Insuln.pen, 5 UNIT SQ SLIDING SCALE PRN, (Reported) USES SLIDING SCALE TO DOSE Ipratropium/Albuterol Sulfate 14.7 Gm Aer.w.adap, 2 PUFF IH Q8HR PRN, (Reported) Lisinopril 40 Mg Tablet, 40 MG PO DAILY, (Reported) Metolazone 5 Mg Tab, 1 EACH PO DAILY, (Reported) Montelukast Sodium 10 Mg Tablet, 1 TAB PO DAILY, (Reported) Morphine Sulfate 60 Mg Cap.er.pel, 60 MG PO BID, (Reported) Phentermine Hcl 15 Mg Capsule, 30 MG PO DAILY, (Reported) CURRENTLY NOT TAKING Thyroid,Pork 240 Mg Tablet, 240 MG PO DAILY, (Reported) Warfarin Sod 1 Mg Tab, 1 MG PO DAILY@18, (Reported) [Topiramate/Phenter] , 1 TAB PO DAILY, (Reported) Constitutional: see HPI Eyes: No Symptoms Reported Ears, Nose, Mouth, Throat: no symptoms reported Respiratory: cough, short of breath Cardiovascular: no symptoms reported Gastrointestinal: no symptoms reported Genitourinary: no symptoms reported Musculoskeletal: no symptoms reported Skin: no symptoms reported Psychiatric/Neurological: No Symptoms Reported Endocrine: No Symptoms Reported Past [place]-Fxutlm-Yowgsm Hx Patient Social History Alcohol Use: Denies Use Recreational Drug Use: No Smoking Status: Current Everyday Smoker Type Used: Cigarettes Recent Foreign Travel: No Contact w/Someone Who Travel: No Recent Infectious Disease Expo: No Physical Abuse: No Sexual Abuse: No Immunizations Up To Date Date of Pneumonia Vaccine: Feb 12, 2009 Surgeries History of Surgeries: Yes Surgeries: Appendectomy Respiratory History of Respiratory Disorde: Yes Respiratory Disorders: COPD Cardiovascular History of Cardiac Disorders: Yes (CHF) Neurological History of Neurological Disord: Yes (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, CAUSES FREQ HEADACHES) Neurological Disorders: Headaches /Migraines, Neuropathy Genitourinary History of Genitourinary Disor: No Gastrointestinal History of Gastrointestinal Di: No Musculoskeletal History of Musculoskeletal Dis: Yes (SEVERAL BROKEN BONE, DDD IN BACK) Musculoskeletal Disorders: Chronic Back Pain Endocrine History of Endocrine Disorders: Yes Endocrine Disorders: Diabetes, Non-Insulin dep Cancer History of Cancer: No Psychosocial History of Psychiatric Problem: No Suicide Risk Score: 0 Physical Exam Vital Signs Vital Sign - Last 12Hours 12/12/16 21:21 Temp 98.2 Pulse 104 Resp 18 B/P (MAP) 166/98 Pulse Ox 95 Capillary Refill : Less Than 3 Seconds General Appearance: mild distress HEENT: normal ENT inspection Neck: full range of motion Cardiovascular: normal peripheral pulses, regular rate, rhythm, no edema, no gallop, no JVD, no murmur Respiratory: decreased breath sounds The patient is able to perform finger to nose finger to examiner's finger rapid alternating movements finger to thumb alternating movements and a prompt and coordinated fashion. Pupils are equal. David Coma Score Best Eye Response: (4) Open Spontaneously Best Verbal Response: (5) Oriented Best Motor Response: (6) Obeys Commands Progress/Results/Core Measures Results/Orders Medications Given in ED Current Medications Medications Dose Ordered Sig/Hardeep Route Start Time Stop Time Status Last Admin Dose Admin Diphtheria/ Tetanus/Acell Pertussis 0.5 ml STK-MED ONCE IM 12/12/16 21:16 12/12/16 21:25 DC 12/12/16 21:28 0.5 ML Lidocaine HCl 20 ml STK-MED ONCE .ROUTE 12/12/16 21:16 12/12/16 21:25 DC 12/12/16 21:28 5 ML Vital Signs/I&O Vital Sign - Last 12Hours 12/12/16 21:21 Temp 98.2 Pulse 104 Resp 18 B/P (MAP) 166/98 Pulse Ox 95 Blood Pressure Mean: 120 Departure Communication (Admissions) Progress Notes There is a hematoma and a 6 cm horizontal laceration over the left occiput as marked in the images. The area was prepped with Hibiclens. 3 mL of 1 percent Xylocaine were instilled via a 27-gauge needle. 7 nannette were applied in closure. Impression Impression: Primary Impression: blunt laceration left occiput Disposition: 01 HOME, SELF-CARE Condition: Improved Departure-Patient Inst. Decision time for Depature: 21:46 Referrals: YVAN BUSTILLOS DO (PCP/Family) Primary Care Physician Patient Instructions: Laceration Repair With [place] (DC) Add. Discharge Instructions: All discharge instructions reviewed with patient and/or family. Voiced understanding. Keep injured area clean and dry. You may clean the blood up with hydrogen peroxide and a cotton ball. Return in one week for staple removal. Images Head/Face 1 - Laceration TOPHER IVEY MD Dec 12, 2016 21:44
[2016-12-12 21:53] VITALS: BP 166/98
== END 2016-12-12 21:53 | disposition home or self-care (01) ==
LOC: EDUNIT# 21:15 → ER 21:16
DX: S01.01XA Laceration without foreign body of scalp, initial encounter (principal); J44.9 Chronic obstructive pulmonary disease, unspecified; E11.40 Type 2 diabetes mellitus with diabetic neuropathy, unspecified; I50.9 Heart failure, unspecified; G43.909 Migraine, unspecified, not intractable, without status migrainosus; F17.210 Nicotine dependence, cigarettes, uncomplicated; Z90.49 Acquired absence of other specified parts of digestive tract; Z79.4 Long term (current) use of insulin; Z79.01 Long term (current) use of anticoagulants; W22.09XA Striking against other stationary object, initial encounter
CPT/HCPCS: 12002; 90471; 90715

== ENCOUNTER → 2017-05-16 | Outpatient (CLI) | payer MEDICARE, MEDICAID ==
[~2017-05-16] MED LIST changes: +RT-ALBUTEROL SULF 2.5 MG/3 ML PRE-MIX VIAL INH ONE
[2017-05-16 12:00] LABS: ABG BASE EXCESS -0.3 MMOL/L (-2.5-2.5); ABG OXYGEN SATURATION 95 % (94-100); ABG PCO2 40 MMHG (35-45); ABG PH 7.39 (7.37-7.43); ABG PO2 56 MMHG (79-93); ABG TCO2 25.4 MMOL/L (21.0-31.0); ALLENS TEST YES-POS; INSPIRED O2 ROOM AIR; PATIENT TEMP 97.5; VENTILATOR NO
--- NOTE | 2017-05-16 16:53 | Diagnostic Imaging Report ---
EXAMINATION: PA and lateral chest at 01:28 p.m. INDICATION: Preop. FINDINGS: There is shallow inspiration when compared to the prior exam of 12/04/2011. Allowing for this technical factor, the heart size is within normal limits and stable when compared to the previous study. The lungs are generally clear. There is minimal scar formation in the periphery of the left lung base. There is no sign of failure, pneumonia, or pleural effusion. The mediastinum is not widened. The osseous structures are intact. There does appear to be a severe compression deformity of one of the lowermost thoracic vertebra. This seems stable when compared to the prior exam. The orthopedic plate and screw fixation device overlying the lower cervical spine seen previously is again evident and no different. IMPRESSION: There is no evidence for an acute cardiopulmonary abnormality. Dictated by: Dictated on workstation # [id number]
== END ==
LOC: RT 11:18
PROVIDERS: ATTEND Nurse Practitioner Family
DX: J45.909 Unspecified asthma, uncomplicated (principal); J44.9 Chronic obstructive pulmonary disease, unspecified
CPT/HCPCS: 36600; 71046; 82805; 94060; 94726; 94729; 94761

== ENCOUNTER 2017-07-17 07:35 | Inpatient (IN) | payer MEDICARE, MEDICAID ==
[2017-07-17] VITALS (15 sets, daily range): BP systolic 122–148; BP diastolic 54–93
[~2017-07-17] VITALS: Ht 152.4 cm; Wt 167.6 kg
[~2017-07-17 07:35] MED LIST changes: -RT-ALBUTEROL SULF 2.5 MG/3 ML PRE-MIX VIAL INH ONE
[2017-07-17] MEDS ORDERED: RT-ALBUTEROL/IPRATROPIUM 3 ML (DUONEB) VIAL INH ONE (07:45)
[2017-07-17 08:23] LABS: BASOPHILS % (AUTO) 1 % (0-10); EOSINOPHILS % (AUTO) 0 % (0-10); HEMATOCRIT 34 % (35-52); HEMOGLOBIN 11.3 G/DL (11.5-16.0); LYMPHOCYTES # (AUTO) 0.6 X 10^3 (1.0-4.0); LYMPHOCYTES % (AUTO) 9 % (12-44); MEAN CORPUSCULAR HEMOGLOBIN 32 PG (25-34); MEAN CORPUSCULAR HGB CONC 33 G/DL (32-36); MEAN CORPUSCULAR VOLUME 98 FL (80-99); MEAN PLATELET VOLUME 10.4 FL (7.4-10.4); MONOCYTES # (AUTO) 0.9 X 10^3 (0.0-1.0); MONOCYTES % (AUTO) 13 % (0-12); NEUTROPHILS # (AUTO) 4.9 X 10^3 (1.8-7.8); NEUTROPHILS % (AUTO) 77 % (42-75); PLATELET COUNT 78 10^3/uL (130-400); RED CELL DISTRIBUTION WIDTH 17.2 % (10.0-14.5); WHITE BLOOD COUNT 6.4 10^3/uL (4.3-11.0)
--- NOTE | 2017-07-17 08:28 | Diagnostic Imaging Report ---
INDICATION: Shortness of breath. Comparison made with prior examination 05/16/2017. FINDINGS: Heart size upper limits of normal. There is moderate central pulmonary venous congestion. There is no pleural effusion or pneumothorax. Mediastinum is unremarkable. IMPRESSION: Mild cardiomegaly with some central pulmonary venous congestion. Dictated by: Dictated on workstation # [id number]
--- NOTE | 2017-07-17 08:36 | Diagnostic Imaging Report ---
Indication: Possible infection. 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 There is medial deviation of the second toe. There is no fracture or dislocation. No definitive radiographic evidence of osteomyelitis. Impression: Previous amputation as described without radiographic evidence of osteomyelitis. If there is high clinical concern for osteomyelitis, further evaluation with either MRI or three-phase bone scan should be considered. Dictated by: Dictated on workstation # [id number]
[2017-07-17 08:41] LABS: INR 1.2 (0.8-1.4); PROTHROMBIN TIME PATIENT 15.4 SEC (12.2-14.7)
[2017-07-17] MEDS ORDERED: LEVOFLOXACIN 750 MG/150 ML IV 150 ML IV ONE (08:45)
[2017-07-17 08:48] LABS: ALANINE AMINOTRANSFERASE 33 U/L (0-55); ALBUMIN 3.3 GM/DL (3.2-4.5); ALKALINE PHOSPHATASE 98 U/L (40-136); BILIRUBIN,TOTAL 2.8 MG/DL (0.1-1.0); BUN/CREATININE RATIO 13; CALCIUM 8.5 MG/DL (8.5-10.1); CARBON DIOXIDE 25 MMOL/L (21-32); CHLORIDE 100 MMOL/L (98-107); CREATININE SERUM 1.29 MG/DL (0.60-1.30); GFR ESTIMATED 42; GLUCOSE 147 MG/DL (70-105); SODIUM 137 MMOL/L (135-145); TOTAL PROTEIN 7.9 GM/DL (6.4-8.2)
[2017-07-17 08:49] LABS: CLARITY,URINE CLEAR; COLOR,URINE AMBER; GLUCOSE, URINE (UA) NEGATIVE (NEGATIVE); KETONES,URINE 1+ (NEGATIVE); LEUKOCYTE ESTERASE ,URINE 1+ (NEGATIVE); NITRITE,URINE POSITIVE (NEGATIVE); PH,URINE 5 (5-9); PROTEIN,URINE 3+ (NEGATIVE); UROBILINOGEN,URINE 12 MG/DL (NORMAL)
[2017-07-17 09:00] LABS: MYOGLOBIN SERUM 135.7 NG/ML (10.0-92.0)
[2017-07-17 09:04] LABS: ABG BASE EXCESS 4.6 MMOL/L (-2.5-2.5); ABG OXYGEN SATURATION 92 % (94-100); ABG PCO2 57 MMHG (35-45); ABG PO2 62 MMHG (79-93); ABG TCO2 32.2 MMOL/L (21.0-31.0)
[2017-07-17 09:05] LABS: ABG PH 7.34 (7.37-7.43); ALLENS TEST YES-POS; INSPIRED O2 10; PATIENT TEMP 96.5; VENTILATOR NO
[2017-07-17 09:07] LABS: BACTERIA,URINE LARGE /HPF; BILIRUBIN,URINE 2+ (NEGATIVE)
[2017-07-17] MEDS ORDERED: methylPREDNISolone 125 MG (Solu-MEDROL) VIAL IVP ONE (09:15)
[2017-07-17] MEDS ORDERED: NS 250 ML (IVPB) BAG IV ONE (10:00)
[2017-07-17] MEDS ORDERED: IOHEXOL 350 MG/ML 150 ML (OMNIPAQUE 350) VIAL IV ONE (10:00)
--- NOTE | 2017-07-17 10:34 | ED General ---
General Chief Complaint: Respiratory Problems Stated Complaint: SOA/CP Nursing Triage Note: PT ARRIVED PER EMS, PT CO OF SOB, PT HAS ABD BREATHING, PT IS ON NRB@10L, PT SAT 92%. PT USING ABD TO BREATH, PT IS CONFUSED, COLOR PALE, PT IS ONLY ABLE TO SPEAK IN ONE WORD REPLIES. FAMILY TOLD EMS THAT SHE HAS HAD C/P FOR MONTHS Nursing Sepsis Screen: No Definite Risk Source of Information: Patient, EMS, Old Records Exam Limitations: No Limitations History of Present Illness Date Seen by Provider: Jul 17, 2017 Time Seen by Provider: 07:36 Initial Comments This 61 year old woman presents to the emergency room via EMS with complaints of chest pain and shortness of breath. EMS reported her oxygen saturation was in the 80s upon their initial assessment and she appeared pale. She has decreased alertness and confusion. She has known COPD and uses nebulizer treatments at home. She reports recent cough as well. She states she has been sick "for a long time". No interventions were administered by EMS. Patient is using accessory muscles to support her breathing and is morbidly obese which is complicating her respiratory status. She is afebrile upon presentation with stable vital signs. Oxygen saturations recovered with oxygen supplementation by mask. Patient has a history of a DVT. She was previously on warfarin but no longer uses anticoagulation. Patient is intermittently in distress from cramping in the right calf. She also has erythema on the left foot and lower leg suspicious for cellulitis. Allergies and Home Medications Allergies Coded Allergies: Penicillins (Unverified Allergy, Unknown, RASH, 08/11/16) Sulfa (Sulfonamide Antibiotics) (Unverified Allergy, Unknown, RASH, ) aspirin (Unverified Allergy, Unknown, NAUSEA, 08/11/16) codeine (Verified Allergy, Unknown, 08/11/16) tetracycline (Unverified Allergy, Unknown, RASH, 08/11/16) Home Medications Albuterol Sulfate 0.83 Mg/Ml Solution, 0.83 MG IH DAILY, (Reported) Amlodipine Besylate 5 Mg Tablet, 5 MG PO DAILY, (Reported) Budesonide/Formoterol Fumarate 10.2 Gm Hfa.aer.ad, 2 PUFF IH BID, (Reported) Carisoprodol 350 Mg Tablet, 1 TAB PO TID, (Reported) Docusate Sodium 100 Mg Capsule, 100 MG PO DAILY PRN, (Reported) Esomeprazole Mag Trihydrate 40 Mg Capsule.dr, 1 CAP PO DAILY, (Reported) Fexofenadine Hcl 60 Mg Tablet, 2 EACH PO BID, (Reported) Furosemide 20 Mg Tablet, 1 EACH PO DAILY, (Reported) Hydrocodone Bit/Acetaminophen 1 Each Tablet, 1-2 EACH PO Q4-6HRS PRN, (Reported) MAY TAKE 1 OR 2 TABS BY MOUTH EVERY 4-6 HRS NEEDED FOR BREAKTHROUGH PAIN. DO NOT EXCEED 3000 MG TYLENOL (ACETAMINOPHEN)IN 24 HR PERIOD Insulin Aspart 100 Unit/1 Ml Insuln.pen, 5 UNIT SQ SLIDING SCALE PRN, (Reported) USES SLIDING SCALE TO DOSE Ipratropium/Albuterol Sulfate 14.7 Gm Aer.w.adap, 2 PUFF IH Q8HR PRN, (Reported) Lisinopril 40 Mg Tablet, 40 MG PO DAILY, (Reported) Metolazone 5 Mg Tab, 1 EACH PO DAILY, (Reported) Montelukast Sodium 10 Mg Tablet, 1 TAB PO DAILY, (Reported) Morphine Sulfate 60 Mg Cap.er.pel, 60 MG PO BID, (Reported) Phentermine Hcl 15 Mg Capsule, 30 MG PO DAILY, (Reported) CURRENTLY NOT TAKING Thyroid,Pork 240 Mg Tablet, 240 MG PO DAILY, (Reported) Warfarin Sod 1 Mg Tab, 1 MG PO DAILY@18, (Reported) [Topiramate/Phenter] , 1 TAB PO DAILY, (Reported) Patient Home Medication List Home Medication List Reviewed: Yes Review of Systems Constitutional: see HPI EENTM: no symptoms reported Respiratory: see HPI Cardiovascular: no symptoms reported Gastrointestinal: no symptoms reported Genitourinary: no symptoms reported : No Musculoskeletal: no symptoms reported Skin: see HPI Psychiatric/Neurological: See HPI Hematologic/Lymphatic: No Symptoms Reported Past [id number]-[id number] Hx Past Med/Social Hx: Reviewed and Corrections made Patient Social History Alcohol Use: Denies Use Recreational Drug Use: No Smoking Status: Current Everyday Smoker Type Used: Cigarettes Recent Foreign Travel: No Contact w/Someone Who Travel: No Recent Infectious Disease Expo: No Recent Hopitalizations: No Physical Abuse: No Sexual Abuse: No Immunizations Up To Date Date of Pneumonia Vaccine: Feb 12, 2009 Past Medical History Surgeries: Yes Appendectomy Respiratory: Yes COPD Cardiac: Yes (CHF) Deep Vein Thrombosis Neurological: Yes (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, CAUSES FREQ HEADACHES) Headaches /Migraines, Neuropathy Genitourinary: No Gastrointestinal: No Musculoskeletal: Yes (SEVERAL BROKEN BONE, DDD IN BACK) Chronic Back Pain Endocrine: Yes Diabetes, Insulin dep Cancer: No Psychosocial: No Nursing Suicide Risk Score: 0 Integumentary: No Physical Exam-Suspected Sepsis Physical Exam Vital Signs Vital Signs - First Documented 07/17/17 07:35 Temp 96.5 Pulse 112 Resp 26 B/P (MAP) 189/106 (133) Pulse Ox 92 O2 Delivery Non Rebreather O2 Flow Rate 10.00 Capillary Refill : Less Than 3 Seconds Blood Pressure Mean: 133 General Appearance: WD/WN, Mild Distress (respiratory), Obese HEENT: PERRL/EOMI, Normal ENT Inspection, Pharynx Normal Neck: Normal Inspection Respiratory: Lungs Clear, Accessory Muscle Use, Respiratory Distress Cardiovascular: Regular Rate, Rhythm, No Edema, No Murmur Gastrointestinal: Normal Bowel Sounds, Non Tender, Soft Extremity: Normal Capillary Refill, Calf Tenderness (right calf secondary to cramping), Pedal Edema (minimal) 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, Motor Weakness (generalized) , Other (decreased alertness and disorientation, improving with time) Skin: warm/dry, other (erythema and purpura of the left foot and ankle) Focused Exam Sepsis Stage: Sepsis (Possible but not confirmed) Possible Source: Genitouriary Lactate Level 07/17/17 08:13: Lactic Acid Level 1.27 Time of Focused Exam: 09:40 Respiratory: Lungs Clear, Normal Breath Sounds, No Accessory Muscle Use, No Respiratory Distress Cardiovascular: Regular Rate, Rhythm, No Murmur, Other (mild LE edema) Skin: normal color, warm/dry Lactic Acid Level Progress/Results/Core Measures Suspected Sepsis Recent Fever Within 48 Hours: No Infection Criteria Present: None New/Unexplained Altered Menta: No Sepsis Screen: No Definite Risk SIRS Temperature:96.5 Pulse: 90 Respiratory Rate: 23 Laboratory Tests 07/17/17 08:13: White Blood Count 6.4 Blood Pressure 189 /106 Mean: 133 07/17/17 08:13: Lactic Acid Level 1.27 Laboratory Tests 07/17/17 08:13: Creatinine 1.29, INR Comment 1.2, Platelet Count 78L, Total Bilirubin 2.8H Results/Orders Lab Results Laboratory Tests Test 07/17/17 07:55 07/17/17 08:13 07/17/17 08:25 Range/Units Blood Gas Puncture Site RT RAD Blood Gas Patient Temperature 96.5 Arterial Blood pH 7.34 *L 7.37-7.43 Arterial Blood Partial Pressure CO2 57 H 35-45 MMHG Arterial Blood Partial Pressure O2 62 L 79-93 MMHG Arterial Blood HCO3 30 H 23-27 MMOL/L Arterial Blood Total CO2 32.2 H 21.0-31.0 MMOL/L Arterial Blood Oxygen Saturation 92 L 94-100 % Arterial Blood Base Excess 4.6 H -2.5-2.5 MMOL/L Alberto Test YES-POS Blood Gas Ventilator Setting NO Blood Gas Inspired Oxygen 10 Glucometer 149 H 70-110 MG/DL White Blood Count 6.4 4.3-11.0 10^3/uL Red Blood Count 3.50 L 4.35-5.85 10^6/uL Hemoglobin 11.3 L 11.5-16.0 G/DL Hematocrit 34 L 35-52 % Mean Corpuscular Volume 98 80-99 FL Mean Corpuscular Hemoglobin 32 25-34 PG Mean Corpuscular Hemoglobin Concent 33 32-36 G/DL Red Cell Distribution Width 17.2 H 10.0-14.5 % Platelet Count 78 L 130-400 10^3/uL Mean Platelet Volume 10.4 7.4-10.4 FL Neutrophils (%) (Auto) 77 H 42-75 % Lymphocytes (%) (Auto) 9 L 12-44 % Monocytes (%) (Auto) 13 H 0-12 % Eosinophils (%) (Auto) 0 0-10 % Basophils (%) (Auto) 1 0-10 % Neutrophils # (Auto) 4.9 1.8-7.8 X 10^3 Lymphocytes # (Auto) 0.6 L 1.0-4.0 X 10^3 Monocytes # (Auto) 0.9 0.0-1.0 X 10^3 Eosinophils # (Auto) 0.0 0.0-0.3 10^3/uL Basophils # (Auto) 0.0 0.0-0.1 10^3/uL Prothrombin Time 15.4 H 12.2-14.7 SEC INR Comment 1.2 0.8-1.4 Activated Partial Thromboplast Time 30 24-35 SEC D-Dimer 2.74 H 0.00-0.49 UG/ML Sodium Level 137 135-145 MMOL/L Potassium Level 4.0 3.6-5.0 MMOL/L Chloride Level 100 98-107 MMOL/L Carbon Dioxide Level 25 21-32 MMOL/L Anion Gap 12 5-14 MMOL/L Blood Urea Nitrogen 17 7-18 MG/DL Creatinine 1.29 0.60-1.30 MG/DL Estimat Glomerular Filtration Rate 42 BUN/Creatinine Ratio 13 Glucose Level 147 H 70-105 MG/DL Lactic Acid Level 1.27 0.50-2.00 MMOL/L Calcium Level 8.5 8.5-10.1 MG/DL Magnesium Level 2.0 1.8-2.4 MG/DL Total Bilirubin 2.8 H 0.1-1.0 MG/DL Aspartate Amino Transf (AST/SGOT) 46 H 5-34 U/L Alanine Aminotransferase (ALT/SGPT) 33 0-55 U/L Alkaline Phosphatase 98 40-136 U/L Myoglobin 135.7 H 10.0-92.0 NG/ML Troponin I < 0.30 <0.30 NG/ML C-Reactive Protein High Sensitivity 7.40 H 0.00-0.50 MG/DL B-Type Natriuretic Peptide 129.5 H <100.0 PG/ML Total Protein 7.9 6.4-8.2 GM/DL Albumin 3.3 3.2-4.5 GM/DL Urine Color WALTER H Urine Clarity CLEAR Urine pH 5 5-9 Urine Specific [place] 1.015 L 1.016-1.022 Urine Protein 3+ H NEGATIVE Urine Glucose (UA) NEGATIVE NEGATIVE Urine Ketones 1+ H NEGATIVE Urine Nitrite POSITIVE H NEGATIVE Urine Bilirubin 2+ H NEGATIVE Urine Urobilinogen 12 H NORMAL MG/DL Urine Leukocyte Esterase 1+ H NEGATIVE Urine RBC (Auto) 5+ H NEGATIVE Urine RBC 5-10 H /HPF Urine WBC 2-5 /HPF Urine Crystals NONE /LPF Urine Bacteria LARGE H /HPF Urine Casts NONE /LPF Urine Mucus NEGATIVE /LPF Urine Culture Indicated YES My Orders Orders - MAK MORIN MD Cbc With Automated Diff (07/17/17 07:41) Magnesium (07/17/17 07:41) Chest 1 View, Ap/Pa Only (07/17/17 07:41) Ekg Tracing (07/17/17 07:41) Cardiac Profile 1 (07/17/17 07:41) Comprehensive Metabolic Panel (07/17/17 07:41) Myoglobin Serum (07/17/17 07:41) Protime With Inr (07/17/17 07:41) Partial Thromboplastin Time (07/17/17 07:41) O2 (07/17/17 07:41) Monitor-Rhythm Ecg Trace Only (07/17/17 07:41) Lipid Panel (07/18/17 06:00) Saline Lock/Iv-Start (07/17/17 07:41) BNP (07/17/17 07:41) Hs C Reactive Protein (07/17/17 07:41) Fibrin Degradation Products (07/17/17 07:41) Albuterol/Ipra Inhalation Soln (Duoneb I (07/17/17 07:45) Svn Small Volume Nebulizer (07/17/17 07:42) Lactic Acid Analyzer (07/17/17 07:42) Blood Culture (07/17/17 07:42) Sputum Culture (07/17/17 07:42) Ua Culture If Indicated (07/17/17 07:42) Vital Signs Adult Sepsis Patie Q1H (07/17/17 07:42) Remove Rings In Anticipation O (07/17/17 07:42) Arterial Blood Gas (07/17/17 07:55) Accucheck Stat ONCE (07/17/17 07:58) Foot, Left, 2 View (07/17/17 08:10) Levofloxacin 750 Mg/150 Ml Iv (Levaquin (07/17/17 08:45) Urine Culture (07/17/17 08:25) Methylprednisolone Sod Succ (Solu-Medrol (07/17/17 09:15) Ct Angio Chest W (07/17/17 09:44) Iohexol Injection (Omnipaque 350 Mg/Ml 1 (07/17/17 10:00) Ns (Ivpb) (Sodium Chloride 0.9%) (07/17/17 10:00) Medications Given in ED Current Medications Medications Dose Ordered Sig/Hardeep Route Start Time Stop Time Status Last Admin Dose Admin Albuterol/ Ipratropium 3 ml ONCE ONCE INH 07/17/17 07:45 07/17/17 07:46 DC 07/17/17 07:57 3 ML Iohexol 125 ml ONCE ONCE IV 07/17/17 10:00 07/17/17 10:01 DC 07/17/17 10:43 125 ML Levofloxacin/ Dextrose 150 ml @ 100 mls/hr ONCE ONCE IV 07/17/17 08:45 07/17/17 10:14 DC 07/17/17 08:46 100 MLS/HR Methylprednisolone Sodium Succinate 62.5 mg ONCE ONCE IVP 07/17/17 09:15 07/17/17 09:16 DC 07/17/17 10:46 62.5 MG Sodium Chloride 250 ml ONCE ONCE IV 07/17/17 10:00 07/17/17 10:01 DC 07/17/17 10:43 80 ML Vital Signs/I&O 07/17/17 07/17/17 07/17/17 07/17/17 07:35 07:35 07:57 10:38 Temp 96.5 Pulse 112 90 80 Resp 26 23 23 B/P (MAP) 189/106 (133) Pulse Ox 92 96 96 O2 Delivery Non Rebreather Non Rebreather O2 Flow Rate 10.00 50.00 50.00 07/17/17 07/17/17 11:48 12:57 Temp 96.5 Pulse 80 71 Resp 23 30 B/P (MAP) 189/106 (133) Pulse Ox 96 93 O2 Delivery Non Rebreather O2 Flow Rate 50.00 50.00 Capillary Refill : Less Than 3 Seconds Blood Pressure Mean: 133 Point of Care Testing Finger Stick Blood Glucose: 129 Progress Note : Progress Note Patient was promptly given a DuoNeb treatment and placed on BiPAP. Septic workup was pursued. Body habitus inhibited a good interpretation of the chest x -ray. Patient had progressive improvement of alertness and respiratory status with BiPAP and DuoNeb. Solu-Medrol 62.5 mg was administered by IV route. Patient was found to have a urinary tract infection and cellulitis was felt probable in the left foot. Antibiotic therapy was started with Levaquin after lactic acid and blood cultures were drawn. Respiratory failure was felt to be secondary to COPD exacerbation rather than sepsis. Patient was afebrile and had no leukocytosis. Cardiac workup was unremarkable. D-dimer was performed for further evaluation of chest pain. D-dimer was positive and CT angiogram was pursued. No pulmonary embolus was found. However, there was evidence for patchy infiltrate consistent with pneumonia as well as multiple incidental findings. See report for further details. Arrangements were made for transfer to [facility] as there was's initially no bed availability. However, an ICU bed became available and transfer was canceled. Case was reviewed with Dr. Covington and Dr. Camarena. Patient had a penicillin allergy. Antibiotic selection was discussed with Dr. Camarena. Ultrasound of the lower extremities was ordered to be performed in the ICU as she did have lower extremity symptoms and d-dimer was positive. ECG Initial ECG Impression Date: Jul 17, 2017 Initial ECG Impression Time: 07:40 Initial ECG Rate: 91 Initial ECG Rhythm: Normal Sinus Initial ECG Intervals: Normal Comment Normal sinus rhythm. No ST elevation or depression. No significant abnormal intervals or axis deviation. Diagnostic Imaging Diagonstic Imaging: Xray Plain Films/CT/US/NM/MRI: chest Comments Chest x-ray viewed by me and report reviewed. See report below: NAME: ALMA MEDRANO [facility] REC#: [id number] PT STATUS: REG ER : 1955 PHYSICIAN: MAK MORIN MD ADMIT DATE: 07/17/17/ER Signed Date of Exam: 07/17/17 CHEST 1 VIEW, AP/PA ONLY INDICATION: Shortness of breath. Comparison made with prior examination 05/16/2017. FINDINGS: Heart size upper limits of normal. There is moderate central pulmonary venous congestion. There is no pleural effusion or pneumothorax. Mediastinum is unremarkable. IMPRESSION: Mild cardiomegaly with some central pulmonary venous congestion. Dictated by: Dictated on workstation # [id number] Dict: 07/17/17821 Trans: 07/17/17914 Interpreted by: PRADEEP YE MD Electronically signed by: PRADEEP YE MD 07/17/17914 Diagonstic Imaging: Xray Plain Films/CT/US/NM/MRI: other (left foot) Comments Left foot x-ray viewed by me and report reviewed. See report below: NAME: ALMA MEDRANO [facility] REC#: [id number] PT STATUS: REG ER : 1955 PHYSICIAN: MAK MORIN MD ADMIT DATE: 07/17/17/ER Signed Date of Exam: 07/17/17 FOOT, LEFT, 2 VIEW Indication: Possible infection. 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 There is medial deviation of the second toe. There is no fracture or dislocation. No definitive radiographic evidence of osteomyelitis. Impression: Previous amputation as described without radiographic evidence of osteomyelitis. If there is high clinical concern for osteomyelitis, further evaluation with either MRI or three-phase bone scan should be considered. Dictated by: Dictated on workstation # [id number] Dict: 07/17/17821 Trans: 07/17/17914 Interpreted by: PRADEEP YE MD Electronically signed by: PRADEEP YE MD 07/17/17914 Diagonstic Imaging: CT Plain Films/CT/US/NM/MRI: chest Comments CT angiogram of the chest viewed by me and report reviewed. See report below: NAME: ALMA MEDRANO [facility] REC#: [id number] PT STATUS: REG ER : 1955 PHYSICIAN: MAK MORIN MD ADMIT DATE: 07/17/17/ER Draft Date of Exam:07/17/17 CT ANGIO CHEST W PROCEDURE: CT angiography of the chest with contrast. TECHNIQUE: Multiple contiguous axial images were obtained through the chest after uneventful bolus administration of intravenous contrast. Reconstructed CTA MIP acquisitions were also performed. INDICATION: Positive d-dimer. Chest pain. Shortness of air. COMPARISON: None. FINDINGS: There is no evidence of acute pulmonary embolus to the segmental division of the pulmonary arteries. Evaluation beyond this is suboptimal secondary to suboptimal opacification by the contrast bolus. There is mild to moderate calcified coronary and aortic atherosclerosis. Heart size is also mildly prominent. Additionally, there are bulky calcifications of the aortic and mitral valve. Thoracic aorta is otherwise normal in course and caliber. There is no large pericardial effusion. No pathologically enlarged or morphologically abnormal adenopathy is seen within the mediastinum, mariya, nor axilla. Evaluation of the lung dow demonstrate patchy and confluent infiltrate appearing densities within the bilateral mid and lower lung dow, left greater than right. There is mild image degradation of the lung dow secondary to respiratory motion artifact. Subpleural 6 mm micronodule is noted within the lateral margins of the right upper lobe (image 20, series 2). There is no pleural effusion or pneumothorax. Evaluation of the osseous structures demonstrates destructive appearing process epicentered at the T12-L1 intervertebral disc space. There is significant irregular appearance to the adjacent endplates. There is no prior available for comparison. Included portions of the upper abdomen show macronodular appearance to the liver consistent with underlying cirrhosis. There are also gastroesophageal varices and splenomegaly consistent with underlying portal venous hypertension. IMPRESSION: 1. No evidence of acute pulmonary embolus to the segmental division of the pulmonary arteries. Evaluation beyond this is suboptimal for reasons stated above. 2. Scattered patchy infiltrate appearing densities within the bilateral mid and lower lung dow, left greater than right consistent with pneumonia. 3. Mild cardiomegaly 4. Mild to moderate calcified coronary and aortic atherosclerosis. 5. Destructive appearing process epicentered at the T12-L1 intervertebral disc space. Correlation with pre-and postcontrast MRI of the lumbar spine to include the lower thoracic spine is recommended. 6. Cirrhosis with sequela of underlying portal venous hypertension. 7. Small micronodule within the lateral margins of the right upper lobe. Please see below for followup recommendations PULMONARY NODULE FOLLOW-UP Single nodule: <6 mm: * Low risk patient - no routine follow up * High risk patient - optional at 12 months 6-8 mm in size: * Low risk patient - Ct at 6-12 months, then consider at 18-24 months * High risk patient - Ct at 6-12 months, then at 18-24 months >8 mm * Low risk patient - consider CT at 3 months, PET/CT or tissue sampling * High risk patient - consider CT at 3 months, PET/CT, or tissue sampling (Certain patients at high risk with suspicious nodule morphology, upper lobe location, or both may warrant 12-month follow-up) Dictated on workstation # [id number] Dict: 07/17/17 1050 Trans: 07/17/17 1104 [id number] Interpreted by: LAILA MANNING MD Departure Communication (Admissions) Time/Spoke to Admitting Phy: 10:55 Dr. Covington Time/Spoke to Consulting Phy: 11:15 Dr. Camarena Impression Primary Impression: Respiratory failure Qualified Codes: J96.21 - Acute and chronic respiratory failure with hypoxia; J96.22 - Acute and chronic respiratory failure with hypercapnia Additional Impressions: Pneumonia Qualified Codes: J18.9 - Pneumonia, unspecified organism COPD with exacerbation Chest pain Qualified Codes: R07.9 - Chest pain, unspecified Elevated d-dimer Cellulitis of left lower extremity Urinary tract infection Qualified Codes: N39.0 - Urinary tract infection, site not specified Disposition: ADMITTED INPATIENT Condition: Improved Admissions Decision to Admit Reason: Admit from ER (General) Decision to Admit/Date: Jul 17, 2017 Time/Decision to Admit Time: 07:36 Departure-Patient Inst. Referrals: YVAN BUSTILLOS DO (PCP) Primary Care Physician KEITH HINKLE (Family) Primary Care Physician MAK MORIN MD Jul 17, 2017 10:34
--- NOTE | 2017-07-17 11:05 | Diagnostic Imaging Report ---
PROCEDURE: CT angiography of the chest with contrast. TECHNIQUE: Multiple contiguous axial images were obtained through the chest after uneventful bolus administration of intravenous contrast. Reconstructed CTA MIP acquisitions were also performed. INDICATION: Positive d-dimer. Chest pain. Shortness of air. COMPARISON: None. FINDINGS: There is no evidence of acute pulmonary embolus to the segmental division of the pulmonary arteries. Evaluation beyond this is suboptimal secondary to suboptimal opacification by the contrast bolus. There is mild to moderate calcified coronary and aortic atherosclerosis. Heart size is also mildly prominent. Additionally, there are bulky calcifications of the aortic and mitral valve. Thoracic aorta is otherwise normal in course and caliber. There is no large pericardial effusion. No pathologically enlarged or morphologically abnormal adenopathy is seen within the mediastinum, mariya, nor axilla. Evaluation of the lung dow demonstrate patchy and confluent infiltrate appearing densities within the bilateral mid and lower lung dow, left greater than right. There is mild image degradation of the lung dow secondary to respiratory motion artifact. Subpleural 6 mm micronodule is noted within the lateral margins of the right upper lobe (image 20, series 2). There is no pleural effusion or pneumothorax. Evaluation of the osseous structures demonstrates destructive appearing process epicentered at the T12-L1 intervertebral disc space. There is significant irregular appearance to the adjacent endplates. There is no prior available for comparison. Included portions of the upper abdomen show macronodular appearance to the liver consistent with underlying cirrhosis. There are also gastroesophageal varices and splenomegaly consistent with underlying portal venous hypertension. IMPRESSION: 1. No evidence of acute pulmonary embolus to the segmental division of the pulmonary arteries. Evaluation beyond this is suboptimal for reasons stated above. 2. Scattered patchy infiltrate appearing densities within the bilateral mid and lower lung dow, left greater than right consistent with pneumonia. 3. Mild cardiomegaly 4. Mild to moderate calcified coronary and aortic atherosclerosis. 5. Destructive appearing process epicentered at the T12-L1 intervertebral disc space. Correlation with pre-and postcontrast MRI of the lumbar spine to include the lower thoracic spine is recommended. 6. Cirrhosis with sequela of underlying portal venous hypertension. 7. Small micronodule within the lateral margins of the right upper lobe. Please see below for followup recommendations PULMONARY NODULE FOLLOW-UP Single nodule: <6 mm: * Low risk patient - no routine follow up * High risk patient - optional at 12 months 6-8 mm in size: * Low risk patient - Ct at 6-12 months, then consider at 18-24 months * High risk patient - Ct at 6-12 months, then at 18-24 months >8 mm * Low risk patient - consider CT at 3 months, PET/CT or tissue sampling * High risk patient - consider CT at 3 months, PET/CT, or tissue sampling (Certain patients at high risk with suspicious nodule morphology, upper lobe location, or both may warrant 12-month follow-up) Dictated by: Dictated on workstation # [id number]
--- NOTE | 2017-07-17 12:48 | Pulmonary Consultation ---
History of Present Illness History of Present Illness Date of Consultation 07/17/17 12:42 Time Seen by Provider: 12:43 Date of Admission History of Present Illness 61yo with hx of COPD chronic respiratory failure presented to ED secondary to worsening respiratory failure. She was found to be in severe acute respiratory failure upon ED admission and was placed on BiPAP therapy. Pt did also have accessory muscle use with respiratory failure. Unable to obtain ROS secondary to respiratory failure. Allergies and Home Medications Allergies Coded Allergies: aspirin (Unverified Allergy, Severe, HIVES, DIFFICULTY BREATHING, 07/18/17) Penicillins (Unverified Allergy, Unknown, RASH, 08/11/16) Sulfa (Sulfonamide Antibiotics) (Unverified Allergy, Unknown, RASH, ) codeine (Verified Allergy, Unknown, 08/11/16) tetracycline (Unverified Allergy, Unknown, RASH, 08/11/16) Home Medications Azithromycin 250 Mg Tablet, 250 MG PO DAILY Prescribed by: RACHAEL PIPER on 07/20/17 1322 Prednisone 20 Mg Tab, 40 MG PO DAILY@0700 Prescribed by: RACHAEL PIPER on 07/20/17 1322 Past Ccssczk-Vjlgdl-Ayynjb Hx Patient Social History Alcohol Use: Denies Use Recreational Drug Use: No Smoking Status: Current Everyday Smoker Type Used: Cigarettes Recent Foreign Travel: No Contact w/Someone Who Travel: No Recent Infectious Disease Expo: No Recent Hopitalizations: No Physical Abuse: No Sexual Abuse: No Immunizations Up To Date Date of Pneumonia Vaccine: Feb 12, 2009 Past Medical History Surgeries: Yes Appendectomy Respiratory: Yes COPD Cardiac: Yes (CHF) Neurological: Yes (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, CAUSES FREQ HEADACHES) Headaches /Migraines, Neuropathy Genitourinary: No Gastrointestinal: No Musculoskeletal: Yes (SEVERAL BROKEN BONE, DDD IN BACK) Chronic Back Pain Endocrine: Yes Diabetes, Non-Insulin dep Cancer: No Psychosocial: No Nursing Suicide Risk Score: 0 Review of Systems Time Seen by Provider: 08:38 Exam Exam Vital Signs Date Time Temp Pulse Resp B/P (MAP) Pulse Ox O2 Delivery O2 Flow Rate FiO2 07/17/17 11:48 96.5 80 23 189/106 (133) 96 Non Rebreather 50.00 07/17/17 10:38 80 23 96 50.00 07/17/17 07:57 90 23 96 50.00 07/17/17 07:35 92 Non Rebreather 10.00 07/17/17 07:35 96.5 112 26 189/106 (133) Non Rebreather General Appearance: Moderate Distress Respiratory: Normal Breath Sounds, Accessory Muscle Use, Decreased Breath Sounds Cardiovascular: Regular Rate, Rhythm, No Murmur, Other (mild LE edema) Capillary Refill: Less Than 3 Seconds Gastrointestinal: normal bowel sounds, soft Extremity: Normal Capillary Refill Neurologic/Psychiatric: Alert Skin: Normal Color, Warm/Dry Results Lab Laboratory Tests 07/17/17 08:13 Assessment/Plan Assessment/Plan Acute on chronic respiratory failure -pt is tolerating noninvasive ventilation well -Will continue to monitor -Duoneb Q 4 COPDAE -SVNS, solumedrol 40 IV Q 6 -ABG CAP -Continue Levaquin D/C vanco and cefepime -King culture Morbid obesity with OHS Atelectasis -Montior GI/DVT ppx -start lovenox, SCDs, and protonix IV tobacco use -education Radiology and labs reviewed 255 BAKARI LAURA DO Jul 17, 2017 12:48
[2017-07-17] MEDS ORDERED: VANCOMYCIN 2000 MG/NS 500 ML IVPB IV SCH ×2 (13:15)
[2017-07-17] MEDS ORDERED: methylPREDNISolone 40 MG/ML (Solu-MEDROL) VIAL ONE (13:58)
[2017-07-17] MEDS ORDERED: methylPREDNISolone 40 MG/ML (Solu-MEDROL) VIAL IV NR (14:00)
[2017-07-17] MEDS: methylPREDNISolone 40 MG/ML (Solu-MEDROL) VIAL IV SCH ×2 (14:09→20:18)
[2017-07-17] MEDS: CEFEPIME 2 GM/NS 50 ML IVPB IV SCH ×2 (14:09)
--- NOTE | 2017-07-17 14:33 | Diagnostic Imaging Report ---
Indication: Lower extremity cellulitis Venous Doppler of the lower extremities. Duplex ultrasound of the venous system of the legs was done with grayscale, spectral waveform and color Doppler flow analysis. There is good color filling and compressibility. There is normal spontaneous and augmented flow. Impression: Negative venous Doppler of the legs. Dictated by: Dictated on workstation # [id number]
[2017-07-17 15:13] LABS: ABG BASE EXCESS 5.1 MMOL/L (-2.5-2.5); ABG OXYGEN SATURATION 97 % (94-100); ABG PCO2 54 MMHG (35-45); ABG PH 7.37 (7.37-7.43); ABG PO2 85 MMHG (79-93); ABG TCO2 31.9 MMOL/L (21.0-31.0); INSPIRED O2 50%; PATIENT TEMP 98.5; VENTILATOR NO
[2017-07-18] VITALS (16 sets, daily range): BP systolic 117–188; BP diastolic 54–87
[2017-07-18] MEDS: methylPREDNISolone 40 MG/ML (Solu-MEDROL) VIAL IV SCH ×4 (01:31→20:41)
[2017-07-18] MEDS: CEFEPIME 2 GM/NS 50 ML IVPB IV SCH ×4 (01:31→13:50)
[2017-07-18 03:52] LABS: ABG OXYGEN SATURATION 96 % (94-100); ABG PCO2 46 MMHG (35-45); ABG PH 7.43 (7.37-7.43); ABG PO2 70 MMHG (79-93); ABG TCO2 31.9 MMOL/L (21.0-31.0)
[2017-07-18 03:59] LABS: ALLENS TEST YES-POS; INSPIRED O2 50%; PATIENT TEMP 97.3; VENTILATOR NO
[2017-07-18 04:18] LABS: BASOPHILS % (AUTO) 0 % (0-10); EOSINOPHILS % (AUTO) 0 % (0-10); HEMATOCRIT 32 % (35-52); HEMOGLOBIN 10.4 G/DL (11.5-16.0); LYMPHOCYTES # (AUTO) 0.4 X 10^3 (1.0-4.0); LYMPHOCYTES % (AUTO) 9 % (12-44); MEAN CORPUSCULAR HEMOGLOBIN 33 PG (25-34); MEAN CORPUSCULAR HGB CONC 33 G/DL (32-36); MEAN CORPUSCULAR VOLUME 99 FL (80-99); MEAN PLATELET VOLUME 10.8 FL (7.4-10.4); MONOCYTES # (AUTO) 0.3 X 10^3 (0.0-1.0); MONOCYTES % (AUTO) 7 % (0-12); NEUTROPHILS # (AUTO) 3.5 X 10^3 (1.8-7.8); NEUTROPHILS % (AUTO) 85 % (42-75); PLATELET COUNT 67 10^3/uL (130-400); RED BLOOD COUNT 3.18 10^6/uL (4.35-5.85); RED CELL DISTRIBUTION WIDTH 16.7 % (10.0-14.5); WHITE BLOOD COUNT 4.1 10^3/uL (4.3-11.0)
[2017-07-18 04:21] LABS: CHOLESTEROL 87 MG/DL (< 200); HDL CHOLESTEROL 16 MG/DL (40-60); TRIGLYCERIDES 99 MG/DL (<150); VLDL CHOLESTEROL 20 MG/DL (5-40)
[2017-07-18 04:29] LABS: CALCIUM 8.5 MG/DL (8.5-10.1); CREATININE SERUM 1.1 MG/DL (0.60-1.30); MAGNESIUM 2.1 MG/DL (1.8-2.4); PHOSPHORUS 2.9 MG/DL (2.3-4.7); POTASSIUM 4.3 MMOL/L (3.6-5.0)
[2017-07-18] MEDS: KCL 20 MEQ TAB (K-DUR) PO SCH (05:15)
--- NOTE | 2017-07-18 05:38 | Pulmonary Progress Note ---
Subjective Time Seen by Provider: 05:35 Subjective/Events-last exam Pt currently on BiPAP appears to be doing better this AM. Will trial her off BiPAP this AM. Focused Exam Lactate Level 07/17/17 08:13: Lactic Acid Level 1.27 Time of Focused Exam: 09:40 Exam Exam Vital Signs Date Time Temp Pulse Resp B/P (MAP) Pulse Ox O2 Delivery O2 Flow Rate FiO2 07/18/17 05:00 68 20 129/61 (83) 96 NIV Bilevel 50.00 07/18/17 04:00 94 NIV Bilevel 50.00 07/18/17 04:00 63 13 123/54 (77) 90 NIV Bilevel 50.00 07/18/17 04:00 66 29 95 50.00 07/18/17 03:48 97.3 07/18/17 03:00 61 26 135/70 (91) 91 NIV Bilevel 50.00 07/18/17 02:00 64 26 142/76 (98) 93 NIV Bilevel 50.00 07/18/17 01:25 64 31 94 50.00 07/18/17 01:00 64 22 139/74 (95) 94 NIV Bilevel 50.00 07/18/17 01:00 63 07/18/17 00:36 63 19 127/63 (84) 92 NIV Bilevel 50.00 07/18/17 00:21 97.6 07/18/17 00:00 94 NIV Bilevel 50.00 07/17/17 23:00 64 12 136/70 (92) 95 NIV Bilevel 50.00 07/17/17 22:00 65 17 135/69 (91) 93 NIV Bilevel 50.00 07/17/17 21:55 65 32 94 50.00 07/17/17 21:00 66 22 140/73 (95) 94 NIV Bilevel 50.00 07/17/17 20:02 98.3 NIV Bilevel 50.00 07/17/17 20:00 92 NIV Bilevel 50.00 07/17/17 19:33 88 Nasal Cannula 6.00 07/17/17 19:04 67 19 95 50.00 07/17/17 19:00 66 22 148/81 (103) 94 NIV Bilevel 50.00 07/17/17 19:00 66 07/17/17 18:00 73 18 131/54 (79) 96 NIV Bilevel 50.00 07/17/17 17:00 63 24 140/75 (96) 94 NIV Bilevel 50.00 07/17/17 16:46 62 25 93 50.00 07/17/17 16:05 98.3 64 31 138/73 (94) 95 NIV Bilevel 50.00 07/17/17 16:05 93 NIV Bilevel 50.00 07/17/17 15:00 71 26 144/93 (110) 94 NIV Bilevel 50.00 07/17/17 14:00 67 27 122/60 (80) 94 NIV Bilevel 50.00 07/17/17 13:00 68 27 123/63 (83) 93 NIV Bilevel 50.00 07/17/17 12:57 71 30 93 50.00 07/17/17 12:37 78 07/17/17 12:30 97.7 79 24 122/66 (84) 92 NIV Bilevel 50.00 07/17/17 12:30 96 NIV Bilevel 50.00 07/17/17 11:48 96.5 80 23 189/106 (133) 96 Non Rebreather 50.00 07/17/17 10:38 80 23 96 50.00 07/17/17 07:57 90 23 96 50.00 07/17/17 07:35 92 Non Rebreather 10.00 07/17/17 07:35 96.5 112 26 189/106 (133) Non Rebreather I & O 07/18/17 07:00 Intake Total 275 ml Output Total 975 ml Balance -700 ml General Appearance: WD/WN, Mild Distress (respiratory), Obese HEENT: PERRL/EOMI, Normal ENT Inspection, Pharynx Normal Neck: Normal Inspection Respiratory: Lungs Clear, Normal Breath Sounds, No Accessory Muscle Use, No Respiratory Distress Cardiovascular: Regular Rate, Rhythm, No Murmur, Other (mild LE edema) Capillary Refill: Less Than 3 Seconds Extremity: Normal Capillary Refill, Calf Tenderness (right calf secondary to cramping), Pedal Edema (minimal) Neurologic/Psychiatric: clinical psychiatrist II-XII Norm as Tested, Motor Weakness (generalized) , Other (decreased alertness and disorientation, improving with time) Skin: Normal Color, Warm/Dry Lymphatic: No Adenopathy Results Lab Laboratory Tests 6/5/18 08:13 07/18/17 03:25 Assessment/Plan Assessment/Plan Acute on chronic respiratory failure -pt is improving with noninvasive ventilation -Pt will benefit from home vent to mask -Will continue to monitor -Duoneb Q 4 COPDAE -SVNS, solumedrol 40 IV Q 6 -ABG CAP -Continue cefepime D/C vanco and levaquin -King culture Morbid obesity with OHS -pt will need home vent to mask Debility/Atelectasis -PT/OT -up to chair BID and PRN -increase activity as tolerated GI/DVT ppx -start lovenox, SCDs, and protonix IV tobacco use -education Pt lives alone she will probably needs ECF or assisted living upon discharge will consult SW to start discharge planning. She will also need home oxygen upon discharge. I will contact [facility] to start the process for home vent to mask. Per RN Daughter states patient is a DNR and actually did not even want to come to hospital when EMS was called. -Will consult hospice for education. Radiology and labs reviewed 233 BAKARI LAURA DO Jul 18, 2017 05:38
[2017-07-18] MEDS ORDERED: POTASSIUM CL 10MEQ/50ML IVPB 50 ML IV SCH (06:00)
[2017-07-18] MEDS ORDERED: inSUlin ASPART (NovoLOG) 1 UNIT/0.01 ML (CHARGE PER UNIT) SC SCH (06:00)
[2017-07-18] MEDS ORDERED: MAGNESIUM 1 GM/100 ML IVPB 100 ML IV SCH (06:00)
--- NOTE | 2017-07-18 08:00 | Diagnostic Imaging Report ---
INDICATION: Dyspnea. Portable upright AP view of the chest is obtained. Comparison is made to study of 07/17/2017. FINDINGS: There is mild cardiomegaly with pulmonary vascularity at the upper limits of normal. Mild perihilar and basilar atelectasis and/or pneumonitis is stable or slightly improved. There is no evidence of pneumothorax. IMPRESSION: Cardiomegaly and mild pulmonary venous congestion with stable or slightly improved perihilar atelectasis and/or pneumonitis. Dictated by: Dictated on workstation # [id number]
[2017-07-18] MEDS ORDERED: LEVOFLOXACIN 750 MG/D5W 150 ML PRE-MIX IV SCH (09:00)
[2017-07-18] MEDS ORDERED: ASPIRIN E.C. 81 MG (ECOTRIN) TAB PO SCH (09:00)
--- NOTE | 2017-07-18 10:50 | Occupational Therapy Eval ---
OT Evaluation-General/PLF Medical Diagnosis Admission Date Jul 17, 2017 at 11:26 Medical Diagnosis: Possible sepsis Onset Date: Jul 17, 2017 Therapy Diagnosis Therapy Diagnosis: Weakness Height/Weight Height (Feet): 5 Height (Inches): 0.00 Weight (Pounds): 376 Weight (Ounces): 5.0 Precautions Precautions/Isolations: Fall Prevention, Standard Precautions Safety Interventions: Reorient-PRN Weight Bear Status Weight Bearing Restriction: Weight Bearing/Tolerated Referral Physician: Dr. Camarena Referral Reason: Activity Tolerance, Self Care, Evaluation/Treatment, Strengthening/ROM Medical History Pertinent Medical History: COPD, Neuropathy Additional Medical History DVT, cyst on brain, left big toe amputation Current History Pt. states that she became very SOA when she had to go to court yesterday. By the time she got home, she was confused and unable to breathe. Her grandson called EMS. Reviewed History: Yes Social History Home: Apartment Current Living Status: Other Family Entry Into Home: Stairs With Railing Steps Into Home: 4 ADL-Prior Level of Function ADL PLOF Comments Pt. states that she does not use an assistive device to ambulate, but might have a walker at home, she isn't sure. She wears oxygen at night and sometimes during the day. Grandson lives with her in [facility]. States that sometimes she needs help with ADLs at home, but often just doesn't do them so that her grandson doesn't have to help her. DME/Equipment: Tub/Shower OT Current Status Subjective Pt. does not report pain. Agrees to work with OT. Appearance Pt. in bed in no distress. On hold to order food. Mental Status/Objective Patient Orientation: Person, Place Attachments: Zheng Catheter, IV, Oxygen Current Upper Extremity ROM WFL Pt. has dried blood on hands. OT also noted poor hygiene, as hands very dirty and nails with debris under them. Pt. states that she thinks the blood came from multiple IV sticks. ADL-Treatment Functional [place] Measure 0=Not Assessed/NA 4=Minimal Assistance 1=Total Assistance 5=Supervision or Setup 2=Maximal Assistance 6=Modified [place] 3=Moderate Assistance 7=Complete IndependenceIRFPAI Quality Coding Scale 6 Independent with activity with or without an assistive device 5 Patient requires set up or clean up by helper. Patient completes activity by themselves 4 Supervision or touching assist (CGA). [place] provide cues , steadying assist 3 The helper provides less than half the effort to complete the activity 2 The helper provides more than half the effort to complete the activity 1 Dependent. The helper does all the effort to complete an activity 7 Patient refused to complete or attempt activity 9 The patient did not perform the activity before the current illness or injury 88 Not attempted due to Medical conditions or safety concerns Eating (FIM): 6 Bathing (FIM): 3 (Pt. attempts to bathe while reclined in chair. Pt. is able to wash arms, face, under arms, and upper chest. OT washes feet, LE, and cindi area to best of ability.) Transfers (B, C, W/C) (FIM): 4 (Pt. is able to transfer supine-sit with min assist, and sit-stand with CGA. Pt. transferred to reclining chair. Due to abdominal folds and pannus size, pt. has to sit in reclined position to eat her food.) Pt. is alert and oriented and eager to get out of bed. Concern noted from this therapist regarding hygiene and care at home. No open wounds noted that could be seen. Pt. on 8 L 02. Sats dropped to 82% at one point, but came up quickly. Otherwise, sats varied with activity from 91%-96%. Education OT Patient Education: Correct positioning, Energy conservation, Modified ADL techniques, Progress toward Goal/Update tx plan, Purpose of tx/functional activities, Reviewed precautions, Rehab process, Transfer techniques Teaching Recipient: Patient Teaching Methods: Demonstration, Discussion Response to Teaching: Verbalize Understanding, Return Demonstration OT Short Term Goals Short Term Goals Time Frame: Jul 25, 2017 Eating(FIM): 6 Grooming(FIM): 5 Bathing(FIM): 4 Upper Body Dressing(FIM): 5 Lower Body Dressing(FIM): 3 Toileting(FIM): 4 Transfers (B,C,W/C) (FIM): 5 Toilet/Commode Transfer(FIM): 5 Additional Short Term Goals: 1-Demonstrate ADL Tasks, 2-Verbalize Understanding , 3-ImproveStrength/Britta 1=Demonstrate adherence to instructed precautions during ADL tasks. 2=Patient will verbalize/demonstrate understanding of assistive devices/ modifications for ADL. 3=Patient will improve strength/tolerance for activity to enable patient to perform ADL's. OT Retirement Goals Vocational Adviser Goals Time Frame: Aug 01, 2017 Eating (FIM): 6 Grooming(FIM): 6 Bathing(FIM): 5 Upper Body Dressing(FIM): 5 Lower Body Dressing(FIM): 5 Toileting(FIM): 6 Transfers (B,C,W/C) (FIM): 5 Toilet/Commode Transfer(FIM): 5 Shower Transfer(FIM): 4 Additional Goals: 1-Demonstrate ADL Tasks, 2-Verbalize Understanding, 3- ImproveStrength/Britta 1=Demonstrate adherence to instructed precautions during ADL tasks. 2=Patient will verbalize/demonstrate understanding of assistive devices/ modifications for ADL. 3=Patient will improve strength/tolerance for activity to enable patient to perform ADL's. OT Education/Plan Problem List/Assessment Assessment: Decreased Activ Tolerance, Decreased UE Strength, Dependent Transfers, Impaired Bed Mobility, Impaired I ADL's, Impaired Self-Care Skills, Restricted Funct UE ROM Discharge Recommendations Plan/Recommendations: Continue POC Therapy D/C Recommendations: Home w/ Family Support, Occupational Therapy Home Care, Scheduled Assistance Equpiment Recommendations-D/C: Bath Chair Comment All equipment needs to be fully determined. Treatment Plan/Plan of Care Treatment,Training & Education: Yes Patient would benefit from OT for education, treatment and training to promote independence in ADL's, mobility, safety and/or upper extremity function for ADL' s. Plan of Care: ADL Retraining, Functional Mobility, UE Funct Exercise/Act Treatment Duration: Aug 01, 2017 Frequency: 5 times per week Estimated Hrs Per Day: .25 hour per day Agreement: Yes Rehab Potential: Fair Time/GCodes Start Time: 09:45 Stop Time: 10:30 Total Time Billed (hr/min): 45 Billed Treatment Time 1, EVH x 15minutes, ADL x 30minutes BRE WILLIS OT Jul 18, 2017 10:50
--- NOTE | 2017-07-18 11:07 | Physical Therapy Evaluation ---
PT Evaluation-General Medical Diagnosis Admission Date Jul 17, 2017 at 11:26 Medical Diagnosis: Possible sepsis Onset Date: Jul 17, 2017 Therapy Diagnosis Therapy Diagnosis: weakness; abn gait Height/Weight Height (Feet): 5 Height (Inches): 0.00 Weight (Pounds): 376 Weight (Ounces): 5.0 Precautions Precautions/Isolations: Fall Prevention, Standard Precautions Referral Physician: Nicol Reason for Referral: Evaluation/Treatment Medical History Pertinent Medical History: COPD, DM, Neuropathy Additional Medical History DDD, morbid obesity Current History Pt admitted through ED with acute respiratory failure with COPD exac. Reviewed History: Yes Social History Home: Single Level Current Living Status: Other Family (grandson lives with her) Entry Into Home: Stairs With Railing PT Steps Into Home: 4 Prior/Core FIM Prior Level of Function Functional [place] Measure 0=Not Assessed/NA 4=Minimal Assistance 1=Total Assistance 5=Supervision or Setup 2=Maximal Assistance 6=Modified [place] 3=Moderate Assistance 7=Complete [place] Bed Mobility: 6 Transfers (B,C,W/C) (FIM): 6 Gait: 6 (cane) Pt reports she does leave her home but rarely. PT Evaluation-Current Subjective Agreeable to PT. Wants to go on a walk. Pain Numeric Pain Scale: 0-No Pain Location: No Pain Reported Objective Patient Orientation: Person, Place, Time, Situation Attachments: Oxygen, Zheng Catheter ROM/Strength ROM Lower Extremities WFL Strength Lower Extremities grossly 4/5 throughout Integumentary/Posture Integumentary refer to nursing notes. Bowel Incontinence: No Bladder Incontinence: Zheng Cath Posture normal and symmetrical Neuromuscular (Tone, Coordination, Reflexes) functional Sensory Vision: Functional Hearing: Functional Hand Dominance: Right Sensation Right Lower Extremit: Intact Sensation Left Lower Extremity: Intact Transfers Functional [place] Measure 0=Not Assessed/NA 4=Minimal Assistance 1=Total Assistance 5=Supervision or Setup 2=Maximal Assistance 6=Modified [place] 3=Moderate Assistance 7=Complete [place] Pt transferred sit to stand with CGA with cues for hand placement. After ambulation, and when she sat in the chair, needed assist to get her buttocks fully back in the chair. Gait Mode of Locomotion: Walk Anticipated Mode of Locomotion: Walk Gait (FIM): 2 Distance (FIM): 4=170-39 ft Distance: 75 ft Gait Level of Assist: 4 Gait Assistive Device: FWW Comments/Gait Description Decreased foot clearance and wide DEVIKA. SOA with walking but her sats were at 95 % post gait. Balance Sitting Static: Good Sitting Dynamic: Good Standing Static: Fair Standing Dynamic: Fair Assessment/Needs Pt presents with decreased functional activity tolerance due to above diagnosis. She will benefit from short term PT to address mobility while in acute care. Rehab Potential: Good PT Scouts Goals Long-Term Goals PT Scouts Goals Time Frame: Jul 25, 2017 Transfers (B,C,W/C) (FIM): 6 Gait (FIM): 6 Gait distance (FIM): 3=150 ft Gait Assistive Device: FWW PT Plan Problem List Problem List: Activity Tolerance, Functional Strength, Safety, Gait, Transfer, Bed Mobility Treatment/Plan Treatment Plan: Continue Plan of Care Treatment Plan: Bed Mobility, Education, Functional Activity Britta, Functional Strength, Gait, Safety, Therapeutic Exercise, Transfers Treatment Duration: Jul 25, 2017 Frequency: 6 times per week Estimated Hrs Per Day: .25 hour per day Patient and/or Family Agrees t: Yes Safety Risks/Education Patient Education: Safety Issues Teaching Recipient: Patient Teaching Methods: Discussion Response to Teaching: Reinforcement Needed Time/GCodes Time In: 1030 Time Out: 1055 Total Billed Treatment Time: 25 Total Billed Treatment visit EVM 25 CARLOS A LEDBETTER PT Jul 18, 2017 11:07
--- NOTE | 2017-07-18 12:13 | History & Physicial ([facility]) ---
HPI History of Present Illness: 61 yo F with long history of non compliance who presented to ER with Acute respiratory failure requiring bipap. Patient states that she has been having increased shortness of breath for the last several months. She recently put herself back on oxygen per patient. States that she saw Dr Camarena at the beginning of the year and had not heard back. She denies any fever or chills and she has not had any sick contacts. She has not been taking medications because she states that she has been unable to pick them up because she does not have a car. Patient stated that she did not even want to come to the hospital but then she started to worry that something bad was going on. Source: patient, RN/MD, old records Exam Limitations: no limitations Date seen by provider: Jul 18, 2017 Time Seen by Provider: 10:15 Attending Physician Kateryna Covington MD PCP Susy Contreras DO Consult Date of Admission Jul 17, 2017 at 11:26 Home Medications Home Medications Reviewed patient Home Medication Reconciliation performed by pharmacy medication reconciliations food quality technician and/or nursing. Patients Allergies have been reviewed. Allergies Coded Allergies: aspirin (Unverified Allergy, Severe, HIVES, DIFFICULTY BREATHING, 07/18/17) Penicillins (Unverified Allergy, Unknown, RASH, 08/11/16) Sulfa (Sulfonamide Antibiotics) (Unverified Allergy, Unknown, RASH, ) codeine (Verified Allergy, Unknown, 08/11/16) tetracycline (Unverified Allergy, Unknown, RASH, 08/11/16) DRE-[id number]-[id number] Hx Patient Social History Living Status: Lives in home with grandson Alcohol Use: Denies Use Recreational Drug Use: No Smoking Status: Current Everyday Smoker Type Used: Cigarettes Recent Foreign Travel: No Contact w/other who traveled: No Recent Hopitalizations: No Recent Infectious Disease Expo: No Physical Abuse Screen: No Sexual Abuse: No Immunizations Up To Date Date of Pneumonia Vaccine: Feb 12, 2009 Past Medical History COPD Morbid Obesity IDDM CAD Cirrhois Review of Systems ([facility]) Constitutional: no symptoms reported; No chills, No fever; malaise EENTM: nose congestion; No hoarseness, No mouth pain, No throat pain Respiratory: orthopnea, short of breath Cardiovascular: chest pain, edema; No palpitations Gastrointestinal: no symptoms reported; No abdominal pain, No constipation, No diarrhea, No nausea, No vomiting Genitourinary: no symptoms reported; No dysuria, No frequency, No hematuria : No Musculoskeletal: back pain (chronic), joint pain Skin: no symptoms reported; No lesions, No rash Psychiatric/Neurological: No Symptoms Reported Reviewed Test Results Reviewed Test Results Lab Laboratory Tests Test 07/17/17 18:35 07/18/17 03:25 07/18/17 03:42 07/18/17 13:55 Range/Units Troponin I < 0.30 <0.30 NG/ML White Blood Count 4.1 L 4.3-11.0 10^3/uL Red Blood Count 3.18 L 4.35-5.85 10^6/uL Hemoglobin 10.4 L 11.5-16.0 G/DL Hematocrit 32 L 35-52 % Mean Corpuscular Volume 99 80-99 FL Mean Corpuscular Hemoglobin 33 25-34 PG Mean Corpuscular Hemoglobin Concent 33 32-36 G/DL Red Cell Distribution Width 16.7 H 10.0-14.5 % Platelet Count 67 L 130-400 10^3/uL Mean Platelet Volume 10.8 H 7.4-10.4 FL Neutrophils (%) (Auto) 85 H 42-75 % Lymphocytes (%) (Auto) 9 L 12-44 % Monocytes (%) (Auto) 7 0-12 % Eosinophils (%) (Auto) 0 0-10 % Basophils (%) (Auto) 0 0-10 % Neutrophils # (Auto) 3.5 1.8-7.8 X 10^3 Lymphocytes # (Auto) 0.4 L 1.0-4.0 X 10^3 Monocytes # (Auto) 0.3 0.0-1.0 X 10^3 Eosinophils # (Auto) 0.0 0.0-0.3 10^3/uL Basophils # (Auto) 0.0 0.0-0.1 10^3/uL Sodium Level 137 135-145 MMOL/L Potassium Level 4.3 3.6-5.0 MMOL/L Chloride Level 103 98-107 MMOL/L Carbon Dioxide Level 25 21-32 MMOL/L Anion Gap 9 5-14 MMOL/L Blood Urea Nitrogen 18 7-18 MG/DL Creatinine 1.10 0.60-1.30 MG/DL Estimat Glomerular Filtration Rate 51 BUN/Creatinine Ratio 16 Glucose Level 162 H 70-105 MG/DL Calcium Level 8.5 8.5-10.1 MG/DL Phosphorus Level 2.9 2.3-4.7 MG/DL Magnesium Level 2.1 1.8-2.4 MG/DL Triglycerides Level 99 <150 MG/DL Cholesterol Level 87 < 200 MG/DL LDL Cholesterol Direct 55 1-129 MG/DL VLDL Cholesterol 20 5-40 MG/DL HDL Cholesterol 16 L 40-60 MG/DL Blood Gas Puncture Site RIGHT RADIAL Blood Gas Patient Temperature 97.3 Arterial Blood pH 7.43 7.37-7.43 Arterial Blood Partial Pressure CO2 46 H 35-45 MMHG Arterial Blood Partial Pressure O2 70 L 79-93 MMHG Arterial Blood HCO3 31 H 23-27 MMOL/L Arterial Blood Total CO2 31.9 H 21.0-31.0 MMOL/L Arterial Blood Oxygen Saturation 96 94-100 % Arterial Blood Base Excess 6.0 H -2.5-2.5 MMOL/L Alberto Test YES-POS Blood Gas Ventilator Setting NO Blood Gas Inspired Oxygen 50% Glucometer 210 H 70-110 MG/DL Test 07/18/17 15:40 Range/Units Glucometer 153 H 70-110 MG/DL Radiology Date of Exam: 07/17/17 CT ANGIO CHEST W PROCEDURE: CT angiography of the chest with contrast. TECHNIQUE: Multiple contiguous axial images were obtained through the chest after uneventful bolus administration of intravenous contrast. Reconstructed CTA MIP acquisitions were also performed. INDICATION: Positive d-dimer. Chest pain. Shortness of air. COMPARISON: None. FINDINGS: There is no evidence of acute pulmonary embolus to the segmental division of the pulmonary arteries. Evaluation beyond this is suboptimal secondary to suboptimal opacification by the contrast bolus. There is mild to moderate calcified coronary and aortic atherosclerosis. Heart size is also mildly prominent. Additionally, there are bulky calcifications of the aortic and mitral valve. Thoracic aorta is otherwise normal in course and caliber. There is no large pericardial effusion. No pathologically enlarged or morphologically abnormal adenopathy is seen within the mediastinum, mariya, nor axilla. Evaluation of the lung dow demonstrate patchy and confluent infiltrate appearing densities within the bilateral mid and lower lung dow, left greater than right. There is mild image degradation of the lung dow secondary to respiratory motion artifact. Subpleural 6 mm micronodule is noted within the lateral margins of the right upper lobe (image 20, series 2). There is no pleural effusion or pneumothorax. Evaluation of the osseous structures demonstrates destructive appearing process epicentered at the T12-L1 intervertebral disc space. There is significant irregular appearance to the adjacent endplates. There is no prior available for comparison. Included portions of the upper abdomen show macronodular appearance to the liver consistent with underlying cirrhosis. There are also gastroesophageal varices and splenomegaly consistent with underlying portal venous hypertension. IMPRESSION: 1. No evidence of acute pulmonary embolus to the segmental division of the pulmonary arteries. Evaluation beyond this is suboptimal for reasons stated above. 2. Scattered patchy infiltrate appearing densities within the bilateral mid and lower lung dow, left greater than right consistent with pneumonia. 3. Mild cardiomegaly 4. Mild to moderate calcified coronary and aortic atherosclerosis. 5. Destructive appearing process epicentered at the T12-L1 intervertebral disc space. Correlation with pre-and postcontrast MRI of the lumbar spine to include the lower thoracic spine is recommended. 6. Cirrhosis with sequela of underlying portal venous hypertension. 7. Small micronodule within the lateral margins of the right upper lobe. Please see below for followup recommendations Date of Exam: 07/17/17 US VENOUS LOWER EXT SRINIVAS Indication: Lower extremity cellulitis Venous Doppler of the lower extremities. Duplex ultrasound of the venous system of the legs was done with grayscale, spectral waveform and color Doppler flow analysis. There is good color filling and compressibility. There is normal spontaneous and augmented flow. Impression: Negative venous Doppler of the legs. Physical Exam-([facility]) Physical Exam Vital Signs VS - Last 72 Hours, by Label 07/17/17 07/17/17 07/17/17 07/17/17 07:35 07:35 07:57 10:38 Temp 96.5 Pulse 112 90 80 Resp 26 23 23 B/P (MAP) 189/106 (133) Pulse Ox 92 96 96 O2 Delivery Non Rebreather Non Rebreather O2 Flow Rate 10.00 50.00 50.00 07/17/17 07/17/17 07/17/17 07/17/17 11:48 12:30 12:30 12:37 Temp 96.5 97.7 Pulse 80 79 78 Resp 23 24 B/P (MAP) 189/106 (133) 122/66 (84) Pulse Ox 96 96 92 O2 Delivery Non Rebreather NIV Bilevel NIV Bilevel O2 Flow Rate 50.00 50.00 50.00 6/5/18 6/5/18 6/5/18 6//18 12:57 13:00 14:00 15:00 Pulse 71 68 67 71 Resp 30 27 27 26 B/P (MAP) 123/63 (83) 122/60 (80) 144/93 (110) Pulse Ox 93 93 94 94 O2 Delivery NIV Bilevel NIV Bilevel NIV Bilevel O2 Flow Rate 50.00 50.00 50.00 50.00 6/5/18 6/5/18 6/5/18 6/5/18 16:05 16:05 16:46 17:00 Temp 98.3 Pulse 64 62 63 Resp 31 25 24 B/P (MAP) 138/73 (94) 140/75 (96) Pulse Ox 93 95 93 94 O2 Delivery NIV Bilevel NIV Bilevel NIV Bilevel O2 Flow Rate 50.00 50.00 50.00 50.00 6/5/18 6/5/18 6/5/18 6//18 18:00 19:00 19:00 19:04 Pulse 73 66 66 67 Resp 18 22 19 B/P (MAP) 131/54 (79) 148/81 (103) Pulse Ox 96 94 95 O2 Delivery NIV Bilevel NIV Bilevel O2 Flow Rate 50.00 50.00 50.00 5/18 6/5/18 6/5/18 6//18 19:33 20:00 20:02 21:00 Temp 98.3 Pulse 66 Resp 22 B/P (MAP) 140/73 (95) Pulse Ox 88 92 94 O2 Delivery Nasal Cannula NIV Bilevel NIV Bilevel NIV Bilevel O2 Flow Rate 6.00 50.00 50.00 50.00 5/18 6/5/18 6/5/18 6//18 21:55 22:00 23:00 00:00 Pulse 65 65 64 Resp 32 17 12 B/P (MAP) 135/69 (91) 136/70 (92) Pulse Ox 94 93 95 94 O2 Delivery NIV Bilevel NIV Bilevel NIV Bilevel O2 Flow Rate 50.00 50.00 50.00 50.00 6/6/18 6/6/18 6/6/18 6//18 00:21 00:36 01:00 01:00 Temp 97.6 Pulse 63 63 64 Resp 19 22 B/P (MAP) 127/63 (84) 139/74 (95) Pulse Ox 92 94 O2 Delivery NIV Bilevel NIV Bilevel O2 Flow Rate 50.00 50.00 07/18/17 07/18/1718 07/18/17 01:25 02:00 03:00 03:48 Temp 97.3 Pulse 64 64 61 Resp 31 26 26 B/P (MAP) 142/76 (98) 135/70 (91) Pulse Ox 94 93 91 O2 Delivery NIV Bilevel NIV Bilevel O2 Flow Rate 50.00 50.00 50.00 07/18/17 07/18/1707/18/18 18 04:00 04:00 04:00 05:00 Pulse 66 63 68 Resp 29 13 20 B/P (MAP) 123/54 (77) 129/61 (83) Pulse Ox 95 90 94 96 O2 Delivery NIV Bilevel NIV Bilevel NIV Bilevel O2 Flow Rate 50.00 50.00 50.00 50.00 07/18/17 07/18/1718 07/18/17 07:00 07:00 07:37 08:00 Pulse 63 63 Resp 17 B/P (MAP) 129/64 (85) Pulse Ox 95 91 94 O2 Delivery High Flow N/C High Flow N/C High Flow N/C O2 Flow Rate 8.00 8.00 8.00 07/18/1718 07/18/18 18 08:00 09:00 10:00 11:00 Temp 97.6 Pulse 69 69 67 75 Resp 20 20 19 13 B/P (MAP) 132/76 (94) 128/60 (82) 136/81 (99) 117/64 (81) Pulse Ox 94 94 O2 Delivery High Flow N/C High Flow N/C High Flow N/C High Flow N/C O2 Flow Rate 8.00 8.00 8.00 8.00 07/18/17 07/18/1718 18 12:00 12:00 12:14 13:00 Temp 97.3 Pulse 71 70 Resp 24 24 B/P (MAP) 135/70 (91) Pulse Ox 91 94 90 O2 Delivery High Flow N/C High Flow N/C High Flow N/C O2 Flow Rate 8.00 8.00 8.00 07/18/17 07/18/17 07/18/17 13:55 14:00 15:24 Temp 98.0 Pulse 74 Resp 24 B/P (MAP) 188/87 (120) Pulse Ox 94 94 95 O2 Delivery High Flow N/C High Flow N/C High Flow N/C O2 Flow Rate 8.00 8.00 8.00 Capillary Refill : Less Than 3 Seconds General Appearance: WD/WN, mild distress HEENT: PERRL/EOMI Neck: non-tender, full range of motion, supple Respiratory: decreased breath sounds, accessory muscle use, wheezing Cardiovascular: normal peripheral pulses, regular rate, rhythm, no murmur Gastrointestinal: normal bowel sounds, non tender, soft, no organomegaly Back: no CVA tenderness Extremities: normal range of motion, non-tender, no calf tenderness, normal capillary refill, pedal edema 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, no motor/sensory deficits, alert, normal mood/affect, oriented x 3 Skin: normal color, warm/dry Lymphatic: no adenopathy Assessment/Plan Assessment/Plan Admission Status: Inpatient Order (span 2 midnights) Reason for Inpatient Admission: Increase oxygen need (1) Acute on chronic respiratory failure with hypoxia Status: Acute Assessment & Plan: - Dr Camarena consulted, Bipap weaned off, continue to titrate oxygen as tolerated, MAT protocol, Steroids and antibiotics (2) COPD exacerbation Status: Acute Assessment & Plan: - See Above (3) Morbid obesity with BMI of 70 and over, adult Status: Chronic (4) Cirrhosis of liver Status: Chronic Assessment & Plan: - Likely 2/2 KENDALL, work up as outpatient, discussed the importance of weight loss Qualifiers: Qualified Codes: K74.69 - Other cirrhosis of liver (5) Insulin dependent diabetes mellitus Status: Chronic Assessment & Plan: - Patient has not been taking any insulin or oral glycemics , will monitor blood sugars and restart meds. (6) CAD (coronary artery disease) Status: Chronic Assessment & Plan: - Recommend daily ASA, patient needs stress testing Qualifiers: Qualified Codes: I25.10 - Atherosclerotic heart disease of [place] coronary artery without angina pectoris (7) Lung nodule Status: Chronic Assessment & Plan: - Needs CT followup in 6 months (8) DVT prophylaxis Status: Acute Assessment & Plan: - Lovenox Clinical Quality Measures DVT/VTE Risk/Contraindication: Risk Factor Score Per Nursin RFS Level Per Nursing on Admit: 4+=Very High Copy Copies To 1: Giovany CHRISTENSEN HOLLY R MD Jul 18, 2017 12:13 pm
[2017-07-18] MEDS: inSUlin ASPART (NovoLOG) 1 UNIT/0.01 ML (CHARGE PER UNIT) SC SCH ×3 (14:07→20:41)
[2017-07-18] MEDS ORDERED: ACETAMINOPHEN 500 MG TAB (TYLENOL) PO PRN (16:00)
[2017-07-18] MEDS: IBUPROFEN 600 MG (MOTRIN) TAB PO PRN (16:27)
[2017-07-18] MEDS: ENOXAPARIN 60 MG/0.6 ML (LOVENOX) SYR SC SCH (17:29)
[2017-07-18] MEDS ORDERED: ENOXAPARIN 40 MG/0.4 ML (LOVENOX) SYR SQ SCH (17:30)
[2017-07-19] VITALS: BP 166/77
[2017-07-19] MEDS: CEFEPIME 2 GM/NS 50 ML IVPB IV SCH ×4 (01:55→12:21)
[2017-07-19] MEDS: methylPREDNISolone 40 MG/ML (Solu-MEDROL) VIAL IV SCH ×2 (02:04→08:46)
[2017-07-19 05:00] VITALS: BP 172/77
[2017-07-19 05:59] LABS: BASOPHILS % (AUTO) 0 % (0-10); EOSINOPHILS % (AUTO) 0 % (0-10); HEMATOCRIT 34 % (35-52); HEMOGLOBIN 10.8 G/DL (11.5-16.0); LYMPHOCYTES # (AUTO) 0.3 X 10^3 (1.0-4.0); LYMPHOCYTES % (AUTO) 7 % (12-44); MEAN CORPUSCULAR HEMOGLOBIN 32 PG (25-34); MEAN CORPUSCULAR HGB CONC 31 G/DL (32-36); MEAN CORPUSCULAR VOLUME 101 FL (80-99); MEAN PLATELET VOLUME 10.9 FL (7.4-10.4); MONOCYTES # (AUTO) 0.2 X 10^3 (0.0-1.0); MONOCYTES % (AUTO) 6 % (0-12); NEUTROPHILS # (AUTO) 3.7 X 10^3 (1.8-7.8); NEUTROPHILS % (AUTO) 87 % (42-75); PLATELET COUNT 85 10^3/uL (130-400); RED BLOOD COUNT 3.42 10^6/uL (4.35-5.85); WHITE BLOOD COUNT 4.2 10^3/uL (4.3-11.0)
[2017-07-19] MEDS: KCL 20 MEQ TAB (K-DUR) PO SCH (06:11)
[2017-07-19] MEDS: ENOXAPARIN 60 MG/0.6 ML (LOVENOX) SYR SC SCH ×2 (06:14→17:05)
[2017-07-19 06:19] LABS: ANISOCYTOSIS SLIGHT; BAND NEUTROPHILS 0 %; BASOPHILS % (MANUAL) 0 %; EOSINOPHILS % (MANUAL) 0 %; LYMPHOCYTES % (MANUAL) 7 %; MONOCYTES % (MANUAL) 2 %; NEUTROPHILS % (MANUAL) 91 %; POLYCHROMASIA SLIGHT
[2017-07-19 06:33] LABS: CALCIUM 8.6 MG/DL (8.5-10.1); CREATININE SERUM 1.17 MG/DL (0.60-1.30); MAGNESIUM 2.2 MG/DL (1.8-2.4); POTASSIUM 4.9 MMOL/L (3.6-5.0)
[2017-07-19] MEDS: inSUlin ASPART (NovoLOG) 1 UNIT/0.01 ML (CHARGE PER UNIT) SC SCH ×4 (06:57→21:06)
--- NOTE | 2017-07-19 07:49 | Pulmonary Progress Note ---
Subjective Time Seen by Provider: 07:49 Subjective/Events-last exam pt currently on BiPAP. Focused Exam Lactate Level 07/17/17 08:13: Lactic Acid Level 1.27 Time of Focused Exam: 09:40 Exam Exam Vital Signs Date Time Temp Pulse Resp B/P (MAP) Pulse Ox O2 Delivery O2 Flow Rate FiO2 07/19/17 07:19 90 High Flow N/C 8.00 07/19/17 05:00 96.4 57 15 172/77 (108) 95 NIV Bilevel 32.00 07/19/17 04:16 61 19 94 32.00 07/19/17 02:05 60 17 98 40.00 07/19/17 00:19 68 16 97 45.00 07/19/17 00:00 96.4 67 19 166/77 (106) 96 NIV Bilevel 45.00 07/18/17 23:00 60 20 98 45.00 07/18/17 20:35 High Flow N/C 8.00 07/18/17 19:40 96.0 67 22 132/63 (86) 96 High Flow N/C 7.50 07/18/17 17:29 96.6 07/18/17 15:30 96.6 63 22 143/74 (97) 97 High Flow N/C 8.00 07/18/17 15:24 95 High Flow N/C 8.00 07/18/17 14:00 98.0 74 24 188/87 (120) 94 High Flow N/C 8.00 07/18/17 13:55 94 High Flow N/C 8.00 07/18/17 13:00 70 24 90 High Flow N/C 8.00 07/18/17 12:14 97.3 07/18/17 12:00 94 High Flow N/C 8.00 07/18/17 12:00 71 24 135/70 (91) 91 High Flow N/C 8.00 07/18/17 11:00 75 13 117/64 (81) High Flow N/C 8.00 07/18/17 10:00 67 19 136/81 (99) High Flow N/C 8.00 07/18/17 09:00 69 20 128/60 (82) 94 High Flow N/C 8.00 07/18/17 08:00 97.6 69 20 132/76 (94) 94 High Flow N/C 8.00 07/18/17 08:00 94 High Flow N/C 8.00 I & O 07/19/17 07:00 Intake Total 580 ml Output Total 1200 ml Balance -620 ml General Appearance: WD/WN, Mild Distress (respiratory), Obese HEENT: PERRL/EOMI, Normal ENT Inspection, Pharynx Normal Neck: Normal Inspection Respiratory: Lungs Clear, Normal Breath Sounds, No Accessory Muscle Use, No Respiratory Distress Cardiovascular: Regular Rate, Rhythm, No Murmur, Other (mild LE edema) Capillary Refill: Less Than 3 Seconds Gastrointestinal: normal bowel sounds, non tender, soft, no organomegaly Extremity: Normal Capillary Refill, Calf Tenderness (right calf secondary to cramping), Pedal Edema (minimal) 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, Motor Weakness (generalized) , Other (decreased alertness and disorientation, improving with time) Skin: Normal Color, Warm/Dry Lymphatic: No Adenopathy Results Lab Laboratory Tests 07/17/17 08:13 07/18/17 03:25 07/19/17 05:42 Assessment/Plan Assessment/Plan Acute on chronic respiratory failure -pt is currently on BiPAP -Pt will benefit from home vent to mask -Will continue to monitor -Duoneb Q 4 COPDAE -SVNS, solumedrol 40 IV Q 6 -ABG CAP - cefepime -King culture Morbid obesity with OHS -pt will need home vent to mask Debility/Atelectasis -PT/OT -up to chair BID and PRN -increase activity as tolerated GI/DVT ppx -start lovenox, SCDs, and protonix IV tobacco use -education 233 BAKARI LAURA DO Jul 19, 2017 07:49
[2017-07-19 08:00] VITALS: BP 160/77
--- NOTE | 2017-07-19 08:34 | Diagnostic Imaging Report ---
INDICATION: Dyspnea COMPARISON: 07/19/2007 FINDINGS: Upright portable view of the chest is obtained. Heart size is enlarged but unchanged. Mild central venous congestion is unchanged. There is no pneumothorax or pleural fluid suspected. Mild perihilar and bilateral basilar opacities appear minimally improved from the prior study. No new abnormality is seen. IMPRESSION: Cardiomegaly with mild central venous distention appear similar to the prior study. Subtle bilateral perihilar and basilar opacities appear minimally improved. This may be related to atelectasis or pneumonitis. No new focal abnormality is seen. Dictated by: Dictated on workstation # [id number]
--- NOTE | 2017-07-19 09:36 | Physical Therapy Daily Note ---
PT Daily Note-Current Subjective Patient is very agreeable to participate with PT. Pain Numeric Pain Scale: 0-No Pain Location: No Pain Reported Mental Status Patient Orientation: Normal For Age Attachments: Oxygen (8L HF), Zheng Catheter Transfers Functional [place] Measure 0=Not Assessed/NA 4=Minimal Assistance 1=Total Assistance 5=Supervision or Setup 2=Maximal Assistance 6=Modified [place] 3=Moderate Assistance 7=Complete IndependenceIRFPAI Quality Coding Scale 6 Independent with activity with or without an assistive device 5 Patient requires set up or clean up by helper. Patient completes activity by themselves 4 Supervision or touching assist (CGA). [place] provide cues , steadying assist 3 The helper provides less than half the effort to complete the activity 2 The helper provides more than half the effort to complete the activity 1 Dependent. The helper does all the effort to complete an activity 7 Patient refused to complete or attempt activity 9 The patient did not perform the activity before the current illness or injury 88 Not attempted due to Medical conditions or safety concerns Transfers (B, C, W/C) (FIM): 6 Scootin Rollin Supine to/from Sit: 6 Sit to/from Stand: 6 Bed to/from Chair: 6 Gait Training Gait (FIM): 6 Distance (FIM): 3=150 ft Distance: 150' Gait Level of Assist: 6 Gait Persons Needed: 1 Gait Assistive Device: FWW assist for O2 8L NC HF/steady gait sequence/multiple standing recovery periods due to SOA Exercises Seated Therapy Exercises: Ankle pumps, Long arc quads Seated Reps: 15 Assessment Patient requires time to complete all functional due to SOA. PT to increase activity as tolerated by patient. PT Short Term Goals Short Term Goals Transfers (B,C,W/C) (FIM): 5 PT Irrigation Specialist Goals Irrigation Specialist Goals PT Irrigation Specialist Goals Time Frame: Jul 25, 2017 Transfers (B,C,W/C) (FIM): 6 Gait (FIM): 6 Gait distance (FIM): 3=150 ft Gait Assistive Device: FWW PT Plan Treatment/Plan Treatment Plan: Continue Plan of Care Treatment Plan: Bed Mobility, Education, Functional Activity Britta, Functional Strength, Gait, Safety, Therapeutic Exercise, Transfers Treatment Duration: Jul 25, 2017 Frequency: 6 times per week Estimated Hrs Per Day: .25 hour per day Patient and/or Family Agrees t: Yes Time/GCodes Time In: 840 Time Out: 903 Total Billed Treatment Time: 23 Total Billed Treatment 1 visit FA x 2 23 min OTF AGUILA PT Jul 19, 2017 09:36
[2017-07-19 12:00] VITALS: BP 158/74
--- NOTE | 2017-07-19 14:34 | Occupational Ther Daily Note ---
OT Current Status-Daily Note Subjective No pain reported. Appearance Pt. up in chair. Agrees to shower. Mental Status/Objective Patient Orientation: Person, Place, Time, Situation Functional [place] Measure 0=Not Assessed/NA 4=Minimal Assistance 1=Total Assistance 5=Supervision or Setup 2=Maximal Assistance 6=Modified [place] 3=Moderate Assistance 7=Complete [place] Attachments: IV, Oxygen ADL-Treatment Grooming (FIM): 6 (Pt. is able to brush hair and put back in bun after shower.) Bathing (FIM): 4 (Min assist to wash bilateral feet. Pt. is able to wash all other parts.) Lower Body Dressing (FIM): 2 (Pt. is unable to doff/don slipper socks. Does not have any other clothing or shoes available. Would benefit from equipment training.) Transfers (B, C, W/C) (FIM): 6 Shower Transfer(FIM): 5 Other Treatment Pt. would benefit from one more treatment for ADL equipment training. Education OT Patient Education: Correct positioning, Modified ADL techniques, Progress toward Goal/Update tx plan, Purpose of tx/functional activities, Reviewed precautions, Rehab process, Transfer techniques, Use of adapted equipment Teaching Recipient: Patient Teaching Methods: Demonstration, Discussion Response to Teaching: Verbalize Understanding, Return Demonstration OT Short Term Goals Short Term Goals Time Frame: Jul 25, 2017 Eating(FIM): 6 Grooming(FIM): 5 Bathing(FIM): 4 Upper Body Dressing(FIM): 5 Lower Body Dressing(FIM): 3 Toileting(FIM): 4 Transfers (B,C,W/C) (FIM): 5 Toilet/Commode Transfer(FIM): 5 Additional Short Term Goals: 1-Demonstrate ADL Tasks, 2-Verbalize Understanding , 3-ImproveStrength/Britta 1=Demonstrate adherence to instructed precautions during ADL tasks. 2=Patient will verbalize/demonstrate understanding of assistive devices/ modifications for ADL. 3=Patient will improve strength/tolerance for activity to enable patient to perform ADL's. OT Snf Goals Snf Goals Time Frame: Aug 01, 2017 Eating (FIM): 6 Grooming(FIM): 6 Bathing(FIM): 5 Upper Body Dressing(FIM): 5 Lower Body Dressing(FIM): 5 Toileting(FIM): 6 Transfers (B,C,W/C) (FIM): 5 Toilet/Commode Transfer(FIM): 5 Shower Transfer(FIM): 4 Additional Goals: 1-Demonstrate ADL Tasks, 2-Verbalize Understanding, 3- ImproveStrength/Britta 1=Demonstrate adherence to instructed precautions during ADL tasks. 2=Patient will verbalize/demonstrate understanding of assistive devices/ modifications for ADL. 3=Patient will improve strength/tolerance for activity to enable patient to perform ADL's. OT Education/Plan Problem List/Assessment Assessment: Decreased Activ Tolerance, Impaired I ADL's, Impaired Self-Care Skills Discharge Recommendations Plan/Recommendations: Continue POC Therapy D/C Recommendations: Home w/ Family Support Treatment Plan/Plan of Care Treatment,Training & Education: Yes Patient would benefit from OT for education, treatment and training to promote independence in ADL's, mobility, safety and/or upper extremity function for ADL' s. Plan of Care: ADL Retraining, Functional Mobility, UE Funct Exercise/Act Treatment Duration: Aug 01, 2017 Frequency: 5 times per week Estimated Hrs Per Day: .25 hour per day Agreement: Yes Rehab Potential: Good Time/GCodes Start Time: 13:20 Stop Time: 14:00 Total Time Billed (hr/min): 40 Billed Treatment Time 1, ADL x 3 BRE WILLIS OT Jul 19, 2017 14:34
[2017-07-19 15:31] VITALS: BP 178/85
[2017-07-19] MEDS: IBUPROFEN 600 MG (MOTRIN) TAB PO PRN (17:10)
[2017-07-19 19:23] VITALS: BP 140/67
--- NOTE | 2017-07-19 20:43 | Progress Note (SOAP) ---
Subjective Subjective/Events-last exam Patient states that she is doing much better this AM. Walked with PT and did well. Tolerating PO diet. Review of Systems Date Seen by Provider: Jul 19, 2017 Time Seen by Provider: 11:15 Pulmonary: Dyspnea; No Cough Cardiovascular: Orthopnea; No: Chest Pain, Palpitations Gastrointestinal: No: Nausea, Vomiting, Abdominal Pain, Diarrhea, Constipation Neurological: No: Confusion Focused Exam Lactate Level 07/17/17 08:13: Lactic Acid Level 1.27 Time of Focused Exam: 09:40 Objective Exam Last Set of Vital Signs Vital Signs Date Time Temp Pulse Resp B/P (MAP) Pulse Ox O2 Delivery O2 Flow Rate FiO2 07/19/17 19:23 97.0 71 22 140/67 (91) 96 High Flow N/C 8.00 Capillary Refill : Less Than 3 SecondsLess Than 3 Seconds I&O Intake and Output 07/19/17 00:00 Intake Total 580 ml Output Total 1075 ml Balance -495 ml Intake Oral 480 ml IV Total 100 ml Output Urine Total 1075 ml # Bowel Movements 1 General: Alert, Oriented X3, Cooperative, No Acute Distress, Other (morbidly obese female) Lungs: Clear to Auscultation, Normal Air Movement Heart: Regular Rate, No Murmurs Abdomen: Normal Bowel Sounds, Soft, No Tenderness, No Masses Extremities: Other (1+ edema bilaterally) Results/Procedures Lab Laboratory Tests 07/19/17 05:42: White Blood Count 4.2L, Red Blood Count 3.42L, Hemoglobin 10.8L, Hematocrit 34L , Mean Corpuscular Volume 101H, Mean Corpuscular Hemoglobin 32, Mean Corpuscular Hemoglobin Concent 31L, Red Cell Distribution Width 17.0H, Platelet Count 85L, Mean Platelet Volume 10.9H, Neutrophils (%) (Auto) 87H, Lymphocytes ( %) (Auto) 7L, Monocytes (%) (Auto) 6, Eosinophils (%) (Auto) 0, Basophils (%) ( Auto) 0, Neutrophils # (Auto) 3.7, Lymphocytes # (Auto) 0.3L, Monocytes # (Auto ) 0.2, Eosinophils # (Auto) 0.0, Basophils # (Auto) 0.0, Neutrophils % (Manual) 91, Lymphocytes % (Manual) 7, Monocytes % (Manual) 2, Eosinophils % (Manual) 0, Basophils % (Manual) 0, Band Neutrophils 0, Polychromasia SLIGHT, Anisocytosis SLIGHT, Sodium Level 136, Potassium Level 4.9, Chloride Level 103, Carbon Dioxide Level 22, Anion Gap 11, Blood Urea Nitrogen 28H, Creatinine 1.17, Estimat Glomerular Filtration Rate 47, BUN/Creatinine Ratio 24, Glucose Level 207H, Calcium Level 8.6, Phosphorus Level 3.0, Magnesium Level 2.2 07/19/17 11:05: Glucometer 228H 07/19/17 15:37: Glucometer 184H Microbiology 07/17/17 Blood Culture - Preliminary, Resulted No growth 07/17/17 Urine Culture - Final, Complete Aerococcus urinae See Comments Radiology Date of Exam: 07/17/17 CT ANGIO CHEST W PROCEDURE: CT angiography of the chest with contrast. TECHNIQUE: Multiple contiguous axial images were obtained through the chest after uneventful bolus administration of intravenous contrast. Reconstructed CTA MIP acquisitions were also performed. INDICATION: Positive d-dimer. Chest pain. Shortness of air. COMPARISON: None. FINDINGS: There is no evidence of acute pulmonary embolus to the segmental division of the pulmonary arteries. Evaluation beyond this is suboptimal secondary to suboptimal opacification by the contrast bolus. There is mild to moderate calcified coronary and aortic atherosclerosis. Heart size is also mildly prominent. Additionally, there are bulky calcifications of the aortic and mitral valve. Thoracic aorta is otherwise normal in course and caliber. There is no large pericardial effusion. No pathologically enlarged or morphologically abnormal adenopathy is seen within the mediastinum, mariya, nor axilla. Evaluation of the lung dow demonstrate patchy and confluent infiltrate appearing densities within the bilateral mid and lower lung dow, left greater than right. There is mild image degradation of the lung dow secondary to respiratory motion artifact. Subpleural 6 mm micronodule is noted within the lateral margins of the right upper lobe (image 20, series 2). There is no pleural effusion or pneumothorax. Evaluation of the osseous structures demonstrates destructive appearing process epicentered at the T12-L1 intervertebral disc space. There is significant irregular appearance to the adjacent endplates. There is no prior available for comparison. Included portions of the upper abdomen show macronodular appearance to the liver consistent with underlying cirrhosis. There are also gastroesophageal varices and splenomegaly consistent with underlying portal venous hypertension. IMPRESSION: 1. No evidence of acute pulmonary embolus to the segmental division of the pulmonary arteries. Evaluation beyond this is suboptimal for reasons stated above. 2. Scattered patchy infiltrate appearing densities within the bilateral mid and lower lung dow, left greater than right consistent with pneumonia. 3. Mild cardiomegaly 4. Mild to moderate calcified coronary and aortic atherosclerosis. 5. Destructive appearing process epicentered at the T12-L1 intervertebral disc space. Correlation with pre-and postcontrast MRI of the lumbar spine to include the lower thoracic spine is recommended. 6. Cirrhosis with sequela of underlying portal venous hypertension. 7. Small micronodule within the lateral margins of the right upper lobe. Please see below for followup recommendations Date of Exam: 07/17/17 US VENOUS LOWER EXT SRINIVAS Indication: Lower extremity cellulitis Venous Doppler of the lower extremities. Duplex ultrasound of the venous system of the legs was done with grayscale, spectral waveform and color Doppler flow analysis. There is good color filling and compressibility. There is normal spontaneous and augmented flow. Impression: Negative venous Doppler of the legs. Assessment/Plan Assessment/Plan (1) Acute on chronic respiratory failure with hypoxia Status: Acute Assessment & Plan: - Dr Camarena consulted, Bipap weaned off, continue to titrate oxygen as tolerated, MAT protocol, Steroids and antibiotics 07/19: Likely at new baseline, Home oxygen qualification today (2) COPD exacerbation Status: Acute Assessment & Plan: - See Above (3) Morbid obesity with BMI of 70 and over, adult Status: Chronic Assessment & Plan: 07/19: Discussed the importance of weight loss and the role on her respiratory status (4) Cirrhosis of liver Status: Chronic Assessment & Plan: - Likely 2/2 KENDALL, work up as outpatient, discussed the importance of weight loss Qualifiers: Qualified Codes: K74.69 - Other cirrhosis of liver (5) Insulin dependent diabetes mellitus Status: Chronic Assessment & Plan: - Patient has not been taking any insulin or oral glycemics , will monitor blood sugars and restart meds. /: A1c 6.2, Will start Metformin at discharge (6) CAD (coronary artery disease) Status: Chronic Assessment & Plan: - Recommend daily ASA, patient needs stress testing Qualifiers: Qualified Codes: I25.10 - Atherosclerotic heart disease of [place] coronary artery without angina pectoris (7) Lung nodule Status: Chronic Assessment & Plan: - Needs CT followup in 6 months (8) DVT prophylaxis Status: Acute Assessment & Plan: - Lovenox Dispo: Home tomorrow with Home health and new oxygen supplementation Clinical Quality Measures DVT/VTE Risk/Contraindication: Risk Factor Score Per Nursin RFS Level Per Nursing on Admit: 4+=Very High RACHAEL PIPER MD Jul 19, 2017 20:43
[2017-07-20] MEDS: CEFEPIME 2 GM/NS 50 ML IVPB IV SCH ×4 (00:16→13:48)
[2017-07-20 00:22] VITALS: BP 137/79
[2017-07-20 04:06] VITALS: BP 136/70
[2017-07-20 05:45] LABS: BASOPHILS % (AUTO) 0 % (0-10); EOSINOPHILS % (AUTO) 0 % (0-10); HEMATOCRIT 35 % (35-52); HEMOGLOBIN 11.2 G/DL (11.5-16.0); LYMPHOCYTES # (AUTO) 0.5 X 10^3 (1.0-4.0); LYMPHOCYTES % (AUTO) 17 % (12-44); MEAN CORPUSCULAR HEMOGLOBIN 33 PG (25-34); MEAN CORPUSCULAR HGB CONC 32 G/DL (32-36); MEAN CORPUSCULAR VOLUME 102 FL (80-99); MEAN PLATELET VOLUME 10.6 FL (7.4-10.4); MONOCYTES # (AUTO) 0.4 X 10^3 (0.0-1.0); MONOCYTES % (AUTO) 12 % (0-12); NEUTROPHILS # (AUTO) 2.3 X 10^3 (1.8-7.8); NEUTROPHILS % (AUTO) 71 % (42-75); PLATELET COUNT 95 10^3/uL (130-400); RED BLOOD COUNT 3.44 10^6/uL (4.35-5.85); RED CELL DISTRIBUTION WIDTH 16.5 % (10.0-14.5); WHITE BLOOD COUNT 3.2 10^3/uL (4.3-11.0)
[2017-07-20] MEDS: ENOXAPARIN 60 MG/0.6 ML (LOVENOX) SYR SC SCH (05:45)
[2017-07-20] MEDS: inSUlin ASPART (NovoLOG) 1 UNIT/0.01 ML (CHARGE PER UNIT) SC SCH ×2 (05:48→11:39)
[2017-07-20 06:09] LABS: CALCIUM 8.6 MG/DL (8.5-10.1); CREATININE SERUM 1.16 MG/DL (0.60-1.30); MAGNESIUM 1.9 MG/DL (1.8-2.4); POTASSIUM 4.2 MMOL/L (3.6-5.0)
[2017-07-20 06:12] LABS: ALBUMIN 2.7 GM/DL (3.2-4.5); BILIRUBIN,TOTAL 0.8 MG/DL (0.1-1.0); CALCIUM 8.6 MG/DL (8.5-10.1); CREATININE SERUM 1.17 MG/DL (0.60-1.30); POTASSIUM 4.2 MMOL/L (3.6-5.0); TOTAL PROTEIN 6.9 GM/DL (6.4-8.2)
--- NOTE | 2017-07-20 06:44 | Pulmonary Progress Note ---
Subjective Time Seen by Provider: 06:59 Subjective/Events-last exam Pt feels much improved. Focused Exam Lactate Level 07/17/17 08:13: Lactic Acid Level 1.27 Time of Focused Exam: 09:40 Exam Exam Vital Signs Date Time Temp Pulse Resp B/P (MAP) Pulse Ox O2 Delivery O2 Flow Rate FiO2 07/20/17 06:21 95 High Flow N/C 8.00 07/20/17 04:06 97.9 76 21 136/70 (92) 94 High Flow N/C 8.00 07/20/17 02:02 68 14 93 32.00 07/20/17 00:22 98.2 88 18 137/79 (98) 95 High Flow N/C 8.00 07/19/17 23:09 72 22 97 32.00 07/19/17 20:40 High Flow N/C 8.00 07/19/17 19:23 97.0 71 22 140/67 (91) 96 High Flow N/C 8.00 07/19/17 15:31 96.3 70 22 178/85 (116) 98 High Flow N/C 8.00 07/19/17 12:00 96.4 76 20 158/74 (102) 94 NIV Bilevel 32.00 07/19/17 08:00 96.3 62 22 160/77 (104) 95 NIV Bilevel 32.00 07/19/17 08:00 High Flow N/C 8.00 07/19/17 07:19 90 High Flow N/C 8.00 I & O 07/20/17 07:00 Intake Total 2300 ml Output Total 1825 ml Balance 475 ml General Appearance: No Apparent Distress, WD/WN, Obese HEENT: PERRL/EOMI, Normal ENT Inspection, Pharynx Normal Neck: Normal Inspection Respiratory: Normal Breath Sounds, No Accessory Muscle Use, No Respiratory Distress, Decreased Breath Sounds Cardiovascular: Regular Rate, Rhythm, No Murmur, Other (mild LE edema) Capillary Refill: Less Than 3 Seconds Gastrointestinal: normal bowel sounds, non tender, soft, no organomegaly Extremity: Normal Capillary Refill, Calf Tenderness (right calf secondary to cramping), Pedal Edema (minimal) Neurologic/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: 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 Norm as Tested, Motor Weakness (generalized) , Other (decreased alertness and disorientation, improving with time) Skin: Normal Color, Warm/Dry Lymphatic: No Adenopathy Results Lab Laboratory Tests 07/19/17 05:42 07/20/17 05:30 Assessment/Plan Assessment/Plan Acute on chronic respiratory failure -pt is currently on BiPAP -Pt will benefit from home vent to mask -Will continue to monitor -Duoneb Q 4 COPDAE -SVNS, solumedrol 40 IV Q 6 -ABG CAP - cefepime -King culture Morbid obesity with OHS -pt will need home vent to mask Debility/Atelectasis -PT/OT -up to chair BID and PRN -increase activity as tolerated GI/DVT ppx -start lovenox, SCDs, and protonix IV tobacco use -education 232 BAKARI LAURA DO Jul 20, 2017 06:44
[2017-07-20] MEDS ORDERED: predniSONE 20 MG TAB PO SCH (07:00)
[2017-07-20 08:00] VITALS: BP 170/81
--- NOTE | 2017-07-20 09:02 | Diagnostic Imaging Report ---
INDICATION: Dyspnea. Frontal chest obtained at 3:31 a.m. and compared to yesterday. FINDINGS: There is prominent cardiomegaly with mild central vascular prominence and borderline edema. There is no pneumothorax or pleural fluid. There is no alveolar consolidation. IMPRESSION: Cardiomegaly with central vascular congestion and interstitial edema again noted with similar appearance to yesterday. No consolidation or pleural fluid. Dictated by: Dictated on workstation # [id number]
--- NOTE | 2017-07-20 10:52 | Physical Therapy Daily Note ---
PT Daily Note-Current Subjective Patient agrees to PT. Pain Numeric Pain Scale: 0-No Pain Location: No Pain Reported Mental Status Patient Orientation: Normal For Age Attachments: Oxygen (6L HF) Transfers Functional [place] Measure 0=Not Assessed/NA 4=Minimal Assistance 1=Total Assistance 5=Supervision or Setup 2=Maximal Assistance 6=Modified [place] 3=Moderate Assistance 7=Complete IndependenceIRFPAI Quality Coding Scale 6 Independent with activity with or without an assistive device 5 Patient requires set up or clean up by helper. Patient completes activity by themselves 4 Supervision or touching assist (CGA). [place] provide cues , steadying assist 3 The helper provides less than half the effort to complete the activity 2 The helper provides more than half the effort to complete the activity 1 Dependent. The helper does all the effort to complete an activity 7 Patient refused to complete or attempt activity 9 The patient did not perform the activity before the current illness or injury 88 Not attempted due to Medical conditions or safety concerns Transfers (B, C, W/C) (FIM): 6 Scootin Supine to/from Sit: 6 Sit to/from Stand: 6 Gait Training Gait (FIM): 6 Distance (FIM): 3=150 ft Distance: 150' Gait Level of Assist: 6 Gait Assistive Device: FWW 3 standing recovery periods due to SOA/patient did cease treatment due to SOA on 6L HF with SAO2 98% Exercises Seated Therapy Exercises: Long arc quads Seated Reps: 20 (2 sets) Assessment Patient tolerated treatment well and is up in recliner with needs met. Patient is currently on 6L O2 HF NC. PT Short Term Goals Short Term Goals Transfers (B,C,W/C) (FIM): 5 PT Halfway Goals Halfway Goals PT Cook Cold Meat Goals Time Frame: Jul 25, 2017 Transfers (B,C,W/C) (FIM): 6 Gait (FIM): 6 Gait distance (FIM): 3=150 ft Gait Assistive Device: FWW PT Plan Treatment/Plan Treatment Plan: Continue Plan of Care Treatment Plan: Bed Mobility, Education, Functional Activity Britta, Functional Strength, Gait, Safety, Therapeutic Exercise, Transfers Treatment Duration: Jul 25, 2017 Frequency: 6 times per week Estimated Hrs Per Day: .25 hour per day Patient and/or Family Agrees t: Yes Time/GCodes Time In: 1016 Time Out: 1034 Total Billed Treatment Time: 18 Total Billed Treatment 1 visit FA 18 min OTF AGUILA PT Jul 20, 2017 10:52
[2017-07-20 12:00] VITALS: BP 147/71
--- NOTE | 2017-07-20 13:11 | Discharge Summary ---
Diagnosis/Chief Complaint Date of Admission Jul 17, 2017 at 11:26 Date of Discharge 07/20/2017 Admission Diagnosis Admission Diagnosis Acute on Chronic Respiratory Failure with hypoxia COPD Exacerbation Morbid Obesity >70 BMI Cirrhois Unspecified NIDDM CAD Lung Nodule Discharge Diagnosis See Above Chief Complaint/HPI Chief Complaint/HPI 61 yo F with long history of non compliance who presented to ER with Acute respiratory failure requiring bipap. Patient states that she has been having increased shortness of breath for the last several months. She recently put herself back on oxygen per patient. States that she saw Dr Camarena at the beginning of the year and had not heard back. She denies any fever or chills and she has not had any sick contacts. She has not been taking medications because she states that she has been unable to pick them up because she does not have a car. Patient stated that she did not even want to come to the hospital but then she started to worry that something bad was going on. Discharge Summary-Simple/Stand Procedures None Consultations Dr Camarena: Pulmonology Discharge Physical Examination Allergies: Coded Allergies: aspirin (Unverified Allergy, Severe, HIVES, DIFFICULTY BREATHING, 07/18/17) Penicillins (Unverified Allergy, Unknown, RASH, 08/11/16) Sulfa (Sulfonamide Antibiotics) (Unverified Allergy, Unknown, RASH, ) codeine (Verified Allergy, Unknown, 08/11/16) tetracycline (Unverified Allergy, Unknown, RASH, 08/11/16) Vitals & I&Os Vital Sign - Last 12Hours Date Time Temp Pulse Resp B/P (MAP) Pulse Ox O2 Delivery O2 Flow Rate FiO2 07/20/17 12:00 98.1 77 22 147/71 (96) 91 High Flow N/C 7.00 Intake and Output 07/20/17 00:00 Intake Total 1950 ml Output Total 1325 ml Balance 625 ml General Appearance: Alert, Oriented X3, Cooperative, No Acute Distress HEENT: Mucous Memb Moist/Bell Respiratory: Clear to Auscultation, Other (Diminished breath sounds in bases, no crackles, mild dyspnea with activity) Cardiovascular: Regular Rate, No Murmurs Abdominal: Normal Bowel Sounds, Soft, No Tenderness, No Masses Extremities: Other (2+ pitting edema, baseline for patient) Skin: No Rashes, No Breakdown Neuro: Normal Speech, Sensation Intact, Cranial Nerves 3-12 NL Psych/Mental Status: Mental Status NL, Mood NL Hospital Course See final discharge diagnosis. Other pending tests Pulmonary Rehab Consult pending Radiology Reviewed Date of Exam: 07/17/17 CT ANGIO CHEST W PROCEDURE: CT angiography of the chest with contrast. TECHNIQUE: Multiple contiguous axial images were obtained through the chest after uneventful bolus administration of intravenous contrast. Reconstructed CTA MIP acquisitions were also performed. INDICATION: Positive d-dimer. Chest pain. Shortness of air. COMPARISON: None. FINDINGS: There is no evidence of acute pulmonary embolus to the segmental division of the pulmonary arteries. Evaluation beyond this is suboptimal secondary to suboptimal opacification by the contrast bolus. There is mild to moderate calcified coronary and aortic atherosclerosis. Heart size is also mildly prominent. Additionally, there are bulky calcifications of the aortic and mitral valve. Thoracic aorta is otherwise normal in course and caliber. There is no large pericardial effusion. No pathologically enlarged or morphologically abnormal adenopathy is seen within the mediastinum, mariya, nor axilla. Evaluation of the lung dow demonstrate patchy and confluent infiltrate appearing densities within the bilateral mid and lower lung dow, left greater than right. There is mild image degradation of the lung dow secondary to respiratory motion artifact. Subpleural 6 mm micronodule is noted within the lateral margins of the right upper lobe (image 20, series 2). There is no pleural effusion or pneumothorax. Evaluation of the osseous structures demonstrates destructive appearing process epicentered at the T12-L1 intervertebral disc space. There is significant irregular appearance to the adjacent endplates. There is no prior available for comparison. Included portions of the upper abdomen show macronodular appearance to the liver consistent with underlying cirrhosis. There are also gastroesophageal varices and splenomegaly consistent with underlying portal venous hypertension. IMPRESSION: 1. No evidence of acute pulmonary embolus to the segmental division of the pulmonary arteries. Evaluation beyond this is suboptimal for reasons stated above. 2. Scattered patchy infiltrate appearing densities within the bilateral mid and lower lung dow, left greater than right consistent with pneumonia. 3. Mild cardiomegaly 4. Mild to moderate calcified coronary and aortic atherosclerosis. 5. Destructive appearing process epicentered at the T12-L1 intervertebral disc space. Correlation with pre-and postcontrast MRI of the lumbar spine to include the lower thoracic spine is recommended. 6. Cirrhosis with sequela of underlying portal venous hypertension. 7. Small micronodule within the lateral margins of the right upper lobe. Please see below for followup recommendations Date of Exam: 07/17/17 US VENOUS LOWER EXT SRINIVAS Indication: Lower extremity cellulitis Venous Doppler of the lower extremities. Duplex ultrasound of the venous system of the legs was done with grayscale, spectral waveform and color Doppler flow analysis. There is good color filling and compressibility. There is normal spontaneous and augmented flow. Impression: Negative venous Doppler of the legs. Discussion & Recommendations 61 yo Morbidly obese female with h/o non compliance that presented to ER with severe shortness of breath found to be hypoxic Acute on Chronic Respiratory Failure with hypoxia: Patient establish with Dr Camarena and was evaluated and placed on bipap upon arrival to ER. Patient was able to be titrated off bipap by AM and placed on Vapotherm. Patient was started on MAT protocol, antibiotics and steroids. Patient was able to get titrated down to 3 L NC and sent home with new script for oxygen. To be evaluated for Vent to mask as outpatient per Dr Camarena. Patient did well with PT and was mobile around room and able to toilet and feed herself. Patient will be sent home with and be evaluated for Pulmonary Rehab. COPD Exacerbation: See Above. Placed on steroids and antibiotics. Morbid Obesity >70 BMI: Discussed the importance of weight loss and the roll in her respiratory failure. Cirrhois Unspecified: Will workup as outpatient. Likely KENDALL related. NIDDM: A1c 6.2 in hospital. Will continue to monitor. CAD: Stable, continue ASA daily. Lung Nodule: 6 month f/u CT Patient was sent home with new oxygen prescription and Home health. She was made aware of prescription delivery as transportation to pharmacy was barrier to patient getting medications and taking appropriate meds. She was also notified of transportation to and from appts. Discharge Condition at discharge Guarded Instructions to patient/family Please see electronic discharge instructions given to patient. Discharge Medications Reviewed and agree with Discharge Medication list on patient's Discharge Instruction sheet Clinical Quality Measures DVT/VTE Risk/Contraindication: Risk Factor Score Per Nursin RFS Level Per Nursing on Admit: 4+=Very High Copy Copies To 1: RACHAEL PIPER MD, HOLLY R MD Jul 20, 2017 13:11
[2017-07-20] MEDS ORDERED: PRD20T PO (13:22)
[2017-07-20] MEDS ORDERED: AZIT250T12 PO (13:22)
--- NOTE | 2017-07-20 13:29 | D/C HH Face to Face Order ---
D/C Face to Face Orders Instructions for Patient Patient Instructions/FollowUp: 07/24/17 Transportation with pick up driver at 1250 and appt will be at 120PM Physician to follow Patient: Gault Discharge Diet for Home: ADA Diet, Cardiac Diet Patient Problems: Obesity Hypoventilation syndrome Acute on Chronic Respiratory Failure with hypoxia Morbid Obesity CAD Lung Nodule COPD Exacerbation Atypical Chest pain Goals for Patient: - Continue to titrate oxygen to PRN need - Weight loss Patient Data-Allergies,Ht & Wt Patient Allergies: Coded Allergies: aspirin (Unverified Allergy, Severe, HIVES, DIFFICULTY BREATHING, 07/18/17) Penicillins (Unverified Allergy, Unknown, RASH, 08/11/16) Sulfa (Sulfonamide Antibiotics) (Unverified Allergy, Unknown, RASH, ) codeine (Verified Allergy, Unknown, 08/11/16) tetracycline (Unverified Allergy, Unknown, RASH, 08/11/16) Height (Feet): 5 Height (Inches): 0.00 Weight (Pounds): 369 Weight (Ounces): 9.6 New Medications: Azithromycin (Azithromycin) 250 Mg Tablet 250 MG PO DAILY for 6 Days, #6 TAB Prednisone (Prednisone) 20 Mg Tab 40 MG PO DAILY@0700 for 7 Days, #7 TAB Home Health Need/Face to Face Date of Face to Face: Jul 19, 2017 Clinical Findings: Shortness of breath, Unsteady gait I have seen Pt [id number]: Yes Discharged To: Home Diagnosis/Conditions: See Above Patient is Homebound due to: Shortness of breath/distress No mode of transportation Homebound Status Due to the above stated illness, injury or surgical procedure (medical condition or diagnosis) and associated clinical findings, the patient is homebound because of his/her inability to leave home except with aid of a supportive device and/or person AND leaving the home requires a considerable and taxing effort or is medically contraindicated. Pt req the following assistanc: Aid of another person, Walker Home Health Nursing Orders Home Health Services Order: Nursing Services, Benefits Advisor-Evaluate & Treat, Physical Therapy-Evaluate & Treat Home Health Infusion Therapy Line Start Date: Jul 17, 2017 Line Start Time: 0810 Therapy Orders Therapy Orders: OT (must have SN or PT order), Physical Therapy, PT to assess for OT Therapy Specific Orders: Eval assistive deivces, Teach enviro modifications/ safety, Increase strength/endurance Weekly weights new oxygen start Certify Stmt I certify that this patient is under my care and that I, a nurse practitioner or a physician; a civil engineering assistant working with me, had a face to face encounter that - meets the physician face to face encounter requirements with this patient as dated. RACHAEL PIPER MD Jul 19, 2017 20:49
== END 2017-07-20 17:10 | disposition home health service (06) | DRG 189 ==
LOC: EDUNIT# 07:35 → ER 07:36 → ICU 11:26 → 4TH 07-18 13:55
PROVIDERS: ADMIT Family Medicine; ATTEND Family Medicine
DX: J96.21 Acute and chronic respiratory failure with hypoxia (principal); J18.9 Pneumonia, unspecified organism; J44.1 Chronic obstructive pulmonary disease with (acute) exacerbation; J44.0 Chronic obstructive pulmonary disease with (acute) lower respiratory infection; N39.0 Urinary tract infection, site not specified; L03.116 Cellulitis of left lower limb; E66.2 Morbid (severe) obesity with alveolar hypoventilation; Z68.45 Body mass index [BMI] 70 or greater, adult; J98.11 Atelectasis; Z66 Do not resuscitate; J96.22 Acute and chronic respiratory failure with hypercapnia; R91.1 Solitary pulmonary nodule; R07.9 Chest pain, unspecified; E11.40 Type 2 diabetes mellitus with diabetic neuropathy, unspecified; I50.9 Heart failure, unspecified; F17.210 Nicotine dependence, cigarettes, uncomplicated; K74.69 Other cirrhosis of liver; G93.0 Cerebral cysts; M54.9 Dorsalgia, unspecified; R25.2 Cramp and spasm; R79.1 Abnormal coagulation profile; Z79.4 Long term (current) use of insulin; Z86.718 Personal history of other venous thrombosis and embolism; Z91.14 Patient's other noncompliance with medication regimen
CPT/HCPCS: 36415; 36600; 51702; 71045; 71275; 73620; 80048; 80053; 80061; 81000; 82805; 82962; 83036; 83605; 83735; 83874; 83880; 84100; 84484; 85007; 85025; 85027; 85379; 85610; 85730; 86141; 87040; 87077; 87088; 93005; 93041; 93970; 94640; 94660; 94760; 94761; 96365; 96375

== ENCOUNTER 2017-07-23 17:19 | Inpatient (IN) | payer MEDICARE, MEDICAID ==
[~2017-07-23] VITALS: Ht 152.4 cm; Wt 173.3 kg
[~2017-07-23 17:19] MED LIST changes: +AZIT250T12 PO; +PRD20T PO
[2017-07-23] MEDS ORDERED: RT-ALBUTEROL SULF 2.5 MG/3 ML PRE-MIX VIAL INH STA (17:21)
--- OUTSIDE RECORDS SUMMARY | 2017-07-23 17:25 | XMS REPORT | Continuity of Care Document ---
Author Author [facility] Organization [facility] Address Unknown Phone Unavailable Allergies Active Description Code Type Severity Reaction Onset Reported/Identified Relationship to Patient Clinical Status Yes aspirin [id number] Drug Allergy Unknown NAUSEA 08/11/2016 Yes codeine [id number] Drug Allergy Unknown N/A 08/11/2016 Yes Penicillins [id number] Drug Allergy Unknown RASH 08/11/2016 Yes Sulfa (Sulfonamide Antibiotics) [id number] Drug Allergy Unknown RASH 2016 Yes tetracycline [id number] Drug Allergy Unknown RASH 08/11/2016 Medications There is no data. Problems Date Dx Coded Attending Type Code [...] V58.61 ANTICOAGULANTS,LT,CURRENT USE 12/06/2011 Ot V58.69 OTH MED,LT, CURRENT USE 01/29/2015 Ot 214.1 01/29/2015 Ot 250.00 01/29/2015 Ot 401.9 01/29/2015 Ot 496 01/29/2015 Ot V15.82 01/29/2015 Ot V72.63 01/29/2015 Ot V72.83 01/29/2015 Ot V74.8 01/29/2015 KATJA REID MD Ot M51.16 INTERVERTEBRAL DISC DISORDERS W RADICULO 01/29/2015 KATJA REID MD Ot M53.3 SACROCOCCYGEAL DISORDERS, NOT ELSEWHERE 01/29/2015 KATJA REID MD Ot Z79.899 OTHER HALF-WAY (CURRENT) DRUG THERAPY 03/15/2016 Ot 214.1 LIPOMA SKIN NEC 03/15/2016 Ot 250.00 DIAB TEREZA WO COMPL, TYPE II OR UNSPEC TY 03/15/2016 Ot 401.9 HYPERTENSION NOS 03/15/2016 Ot 496 CHR AIRWAY OBSTRUCT NEC 03/15/2016 Ot V15.82 HISTORY OF TOBACCO USE 03/15/2016 Ot V72.63 PRE- PROCEDURAL LABORATORY EXAMINATION 03/15/2016 Ot V72.83 EXAM PRE- OPERATIVE NEC 03/15/2016 Ot V74.8 SCREEN- BACTERIAL DIS NEC 08/11/2016 FLETCHER PETE APRN Ot [...] OR 08/11/2016 FLETCHER PETE APRN Ot Z79.01 HALF-WAY (CURRENT) USE OF ANTICOAGULANT 08/11/2016 FLETCHER PETE [...] OR 08/14/2016 FLETCHER PETE APRN Ot 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 08/14/2016 FLETCHER PETE APRN Ot Z87.09 PERSONAL HISTORY OF OTHER DISEASES OF TH 08/14/2016 FLETCHER PETE APRN Ot Z89.422 ACQUIRED [...] OR 08/17/2016 FLETCHER PETE APRN Ot Z79.01 HALF-WAY (CURRENT) USE OF ANTICOAGULANT 08/17/2016 FLETCHER PETE APRN Ot Z87.09 PERSONAL HISTORY OF OTHER DISEASES OF 08/17/2016 FLETCHER PETE APRN Ot Z89.422 ACQUIRED ABSENCE OF OTHER LEFT TOE(S) 08/17/2016 Ot 214.1 LIPOMA SKIN NEC 08/17/2016 Ot 250.00 DIAB TEREZA WO COMPL, TYPE II OR UNSPEC TY 08/17/2016 Ot 401.9 HYPERTENSION NOS 08/17/2016 Ot 496 CHR AIRWAY OBSTRUCT NEC 08/17/2016 Ot V15.82 HISTORY OF TOBACCO USE 08/17/2016 Ot V72.63 PRE- PROCEDURAL LABORATORY EXAMINATION 08/17/2016 Ot V72.83 EXAM PRE- OPERATIVE NEC 08/17/2016 Ot V74.8 SCREEN- BACTERIAL DIS NEC 08/17/2016 JODI JACOB [employer] Ot M79.672 PAIN IN LEFT FOOT 08/18/2016 JODI JACOB [employer] Ot M71.22 SYNOVIAL CYST OF POPLITEAL SPACE [[place]] 08/18/2016 JODI JACOB APRN Ot M79.672 PAIN IN LEFT FOOT 08/18/2016 JODI JACOB APRN Ot Z86.718 PERSONAL HISTORY OF OTHER VENOUS THROMBO 08/31/2016 JODI JACOB APRN Ot M67.972 UNSP DISORDER OF SYNOVIUM AND TENDON, LE 08/31/2016 JODI JACOB APRN Ot M85.862 OT DISRD OF BONE DENSITY AND STRUCTURE, 08/31/2016 JODI JACOB [employer] Ot S93.692A OTHER SPRAIN OF LEFT FOOT, INITIAL ENCOU 08/31/2016 JODI JACOB [employer] Ot X58.XXXA EXPOSURE TO OTHER SPECIFIED FACTORS, INI 08/31/2016 JODI JACOB [employer] Ot Y99.8 OTHER EXTERNAL CAUSE STATUS 09/08/2016 JODI JACOB [employer] Ot M71.22 SYNOVIAL CYST OF POPLITEAL SPACE [[place]] 09/08/2016 JODI JACOB [employer] Ot M79.672 PAIN IN LEFT FOOT 09/08/2016 JODI JACOB [employer] Ot Z86.718 PERSONAL HISTORY OF OTHER VENOUS THROMBO 09/15/2016 JODI JACOB [employer] Ot M67.972 UNSP DISORDER OF SYNOVIUM AND TENDON, LE 09/15/2016 JODI JACOB [employer] Ot M85.862 OTH DISRD OF BONE DENSITY AND STRUCTURE, 09/15/2016 JODI JACOB [employer] Ot S93.692A OTHER SPRAIN OF LEFT FOOT, INITIAL ENCOU 09/15/2016 JODI JACOB [employer] Ot X58.XXXA EXPOSURE TO OTHER SPECIFIED FACTORS, INI 09/15/2016 JODI JACOB [employer] Ot Y99.8 OTHER EXTERNAL CAUSE STATUS 09/15/2016 JODI JACOB [employer] Ot M71.22 SYNOVIAL CYST OF POPLITEAL SPACE [[place]] 09/15/2016 JODI JACOB [employer] Ot M79.672 PAIN IN LEFT FOOT 09/15/2016 JODI JACOB [employer] Ot Z86.718 PERSONAL HISTORY OF OTHER VENOUS THROMBO 09/22/2016 JODI JACOB [employer] Ot M67.972 UNSP DISORDER OF SYNOVIUM AND TENDON, LE 09/22/2016 JODI JACOB [employer] Ot M85.862 OTH DISRD OF BONE DENSITY AND STRUCTURE, 09/22/2016 JODI JACOB [employer] Ot S93.692A OTHER SPRAIN OF LEFT FOOT, INITIAL ENCOU 09/22/2016 JODI JACOB [employer] Ot X58.XXXA EXPOSURE TO OTHER SPECIFIED FACTORS, INI 09/22/2016 JODI JACOB [employer] Ot Y99.8 OTHER EXTERNAL CAUSE STATUS 12/12/2016 UCHE ERIC, TOPHER Dykes Ot E11.40 TYPE 2 DIABETES MELLITUS WITH DIABETIC N 12/12/2016 TOPHER IVEY MD Ot F17.210 NICOTINE DEPENDENCE, CIGARETTES, UNCOMPL 12/12/2016 TOPHER IVEY MD Ot G43.909 MIGRAINE, UNSP, NOT INTRACTABLE, WITHOUT 12/12/2016 TOPHER IVEY MD Ot I50.9 HEART FAILURE, UNSPECIFIED 12/12/2016 TOPHER IVEY MD Ot J44.9 CHRONIC OBSTRUCTIVE PULMONARY DISEASE, U 12/12/2016 TOPHER IVEY MD Ot S01.01XA LACERATION WITHOUT FOREIGN BODY OF SCALP 12/12/2016 TOPHER IVEY MD Ot W22.09XA STRIKING AGAINST OTHER STATIONARY OBJECT 12/12/2016 TOPHER IVEY MD Ot 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 12/12/2016 TOPHER IVEY MD Ot Z79.4 HALF-WAY (CURRENT) USE OF INSULIN 12/12/2016 TOPHER IVEY MD Ot Z90.49 ACQUIRED ABSENCE OF OTHER SPECIFIED PART 12/22/2016 SINDY VILLANUEVA MD Ot S01.01XD LACERATION WITHOUT FOREIGN BODY OF SCALP 12/22/2016 SINDY VILLANUEVA MD Ot X58.XXXD EXPOSURE TO OTHER SPECIFIED FACTORS, SUB 05/21/2017 TEENA LOPEZ APRN Ot J44.9 CHRONIC OBSTRUCTIVE PULMONARY DISEASE, U 05/21/2017 TEENA LOPEZ APRN Ot J45.909 UNSPECIFIED ASTHMA, UNCOMPLICATED 06/07/2017 TEENA LOPEZ APRN Ot J44.9 CHRONIC OBSTRUCTIVE PULMONARY DISEASE, U 06/07/2017 TEENA LOPEZ APRN Ot J45.909 UNSPECIFIED ASTHMA, UNCOMPLICATED 06/15/2017 TEENA LOPEZ APRN Ot J44.9 CHRONIC OBSTRUCTIVE PULMONARY DISEASE, U 06/15/2017 TEENA LOPEZ APRN Ot J45.909 UNSPECIFIED ASTHMA, UNCOMPLICATED Procedures There is no data. Results Test Result Range CBC With Differential/Platelet - 02/10/16 13:34 WBC 5.4 x10E3/uL 3.4-10.8 RBC 4.83 x10E6/uL 3.77-5.28 Hemoglobin 14.9 g/dL 11.1-15.9 Hematocrit 44.8 % 34.0-46.6 MCV 93 fL 79-97 MCH 30.8 pg 26.6-33.0 MCHC 33.3 g/dL 31.5-35.7 RDW 15.1 % 12.3-15.4 Platelets 118 x10E3/uL 150-379 Neutrophils 70 % Lymphs 22 % Monocytes 7 % Eos 1 % Basos 0 % Neutrophils (Absolute) 3.7 x10E3/uL 1.4-7.0 Lymphs (Absolute) 1.2 x10E3/uL 0.7-3.1 Monocytes(Absolute) 0.4 x10E3/uL 0.1-0.9 Eos (Absolute) 0.0 x10E3/uL 0.0-0.4 Baso (Absolute) 0.0 x10E3/uL 0.0-0.2 Immature Granulocytes 0 % Immature Grans (Abs) 0.0 x10E3/uL 0.0-0.1 Hematology Comments: Note: Comp. Metabolic Panel (14) - 02/10/16 13:34 Glucose, Serum 75 mg/dL 65-99 BUN 19 mg/dL 6-24 Creatinine, Serum 1.16 mg/dL 0.57-1.00 eGFR If NonAfricn Am 52 mL/min/1.73 >59 eGFR If Africn Am 60 mL/min/1.73 >59 BUN/Creatinine Ratio 16 9-23 Sodium, Serum 138 mmol/L 134-144 Potassium, Serum 4.4 mmol/L 3.5-5.2 Chloride, Serum 102 mmol/L 96-106 Carbon Dioxide, Total 23 mmol/L 18-29 Calcium, Serum 10.1 mg/dL 8.7-10.2 Protein, Total, Serum 8.7 g/dL 6.0-8.5 Albumin, Serum 4.2 g/dL 3.5-5.5 Globulin, Total 4.5 g/dL 1.5-4.5 A/G Ratio 0.9 1.1-2.5 Bilirubin, Total 0.6 mg/dL 0.0-1.2 Alkaline Phosphatase, S 121 IU/L 39-117 AST (SGOT) 37 IU/L 0-40 ALT (SGPT) 29 IU/L 0-32 Lipid Panel - 02/10/16 13:34 Cholesterol, Total 153 mg/dL 100-199 Triglycerides 118 mg/dL 0-149 HDL Cholesterol 45 mg/dL >39 VLDL Cholesterol Philippe 24 mg/dL 5-40 LDL Cholesterol Calc 84 mg/dL 0-99 TSH - 02/10/16 13:34 TSH 48.530 uIU/mL 0.450-4.500 CBC With Differential/Platelet - 04/04/16 14:14 WBC 6.4 x10E3/uL 3.4-10.8 RBC 4.92 x10E6/uL 3.77-5.28 Hemoglobin 15.0 g/dL 11.1-15.9 Hematocrit 44.5 % 34.0-46.6 MCV 90 fL 79-97 MCH 30.5 pg 26.6-33.0 MCHC 33.7 g/dL 31.5-35.7 RDW 15.5 % 12.3-15.4 Platelets 126 x10E3/uL 150-379 Neutrophils 76 % Lymphs 16 % Monocytes 7 % Eos 1 % Basos 0 % Neutrophils (Absolute) 4.9 x10E3/uL 1.4-7.0 Lymphs (Absolute) 1.0 x10E3/uL 0.7-3.1 Monocytes(Absolute) 0.4 x10E3/uL 0.1-0.9 Eos (Absolute) 0.1 x10E3/uL 0.0-0.4 Baso (Absolute) 0.0 x10E3/uL 0.0-0.2 Immature Granulocytes 0 % Immature Grans (Abs) 0.0 x10E3/uL 0.0-0.1 Comp. Metabolic Panel (14) - 04/04/16 14:14 Glucose, Serum 90 mg/dL 65-99 BUN 16 mg/dL 6-24 Creatinine, Serum 1.04 mg/dL 0.57-1.00 eGFR If NonAfricn Am 59 mL/min/1.73 >59 eGFR If Africn Am 68 mL/min/1.73 >59 BUN/Creatinine Ratio 15 9-23 Sodium, Serum 142 mmol/L 134-144 Potassium, Serum 4.3 mmol/L 3.5-5.2 Chloride, Serum 102 mmol/L 96-106 Carbon Dioxide, Total 26 mmol/L 18-29 Calcium, Serum 9.8 mg/dL 8.7-10.2 Protein, Total, Serum 8.5 g/dL 6.0-8.5 Albumin, Serum 4.2 g/dL 3.5-5.5 Globulin, Total 4.3 g/dL 1.5-4.5 A/G Ratio 1.0 1.1-2.5 Bilirubin, Total 0.9 mg/dL 0.0-1.2 Alkaline Phosphatase, S 125 IU/L 39-117 AST (SGOT) 35 IU/L 0-40 ALT (SGPT) 34 IU/L 0-32 CBC With Differential/Platelet - 05/15/16 11:14 WBC 4.1 x10E3/uL 3.4-10.8 RBC 4.38 x10E6/uL 3.77-5.28 Hemoglobin 13.5 g/dL 11.1-15.9 Hematocrit 41.0 % 34.0-46.6 MCV 94 fL 79-97 MCH 30.8 pg 26.6-33.0 MCHC 32.9 g/dL 31.5-35.7 RDW 15.5 % 12.3-15.4 Platelets TNP x10E3/uL Neutrophils 72 % Lymphs 17 % Monocytes 9 % Eos 1 % Basos 1 % Neutrophils (Absolute) 3.0 x10E3/uL 1.4-7.0 Lymphs (Absolute) 0.7 x10E3/uL 0.7-3.1 Monocytes(Absolute) 0.4 x10E3/uL 0.1-0.9 Eos (Absolute) 0.0 x10E3/uL 0.0-0.4 Baso (Absolute) 0.0 x10E3/uL 0.0-0.2 Immature Granulocytes 0 % Immature Grans (Abs) 0.0 x10E3/uL 0.0-0.1 Hematology Comments: Note: Comp. Metabolic Panel (14) - 05/15/16 11:14 Glucose, Serum 96 mg/dL 65-99 BUN 13 mg/dL 6-24 Creatinine, Serum 1.02 mg/dL 0.57-1.00 eGFR If NonAfricn Am 61 mL/min/1.73 >59 eGFR If Africn Am 70 mL/min/1.73 >59 BUN/Creatinine Ratio 13 9-23 Sodium, Serum 142 mmol/L 134-144 Potassium, Serum 4.1 mmol/L 3.5-5.2 Chloride, Serum 103 mmol/L 96-106 Carbon Dioxide, Total 22 mmol/L 18-29 Calcium, Serum 9.3 mg/dL 8.7-10.2 Protein, Total, Serum 7.9 g/dL 6.0-8.5 Albumin, Serum 3.7 g/dL 3.5-5.5 Globulin, Total 4.2 g/dL 1.5-4.5 A/G Ratio 0.9 1.2-2.2 Bilirubin, Total 0.6 mg/dL 0.0-1.2 Alkaline Phosphatase, S 153 IU/L 39-117 AST (SGOT) 41 IU/L 0-40 ALT (SGPT) 54 IU/L 0-32 TSH - 05/15/16 11:14 TSH 12.440 uIU/mL 0.450-4.500 DIFFERENTIAL, MANUAL - 05/01/17 12:31 ABSOLUTE NEUTROPHILS 3105 cells/uL 1828-2527 ABSOLUTE MONOCYTES 270 cells/uL 200-950 ABSOLUTE EOSINOPHILS 45 cells/uL 15-500 ABSOLUTE BASOPHILS 45 cells/uL 0-200 NEUTROPHILS 69.0 % NRG LYMPHOCYTES 17.0 % NRG MONOCYTES 6.0 % NRG EOSINOPHILS 1.0 % NRG BASOPHILS 1.0 % NRG ABSOLUTE BAND NEUTROPHILS 270 cells/uL 0-750 ABSOLUTE LYMPHOCYTES 765 cells/uL 850-3900 BAND NEUTROPHILS 6.0 % NRG NOTE NRG Arterial blood gas measurement - 05/16/17 11:45 Blood pCO2 40 mm[Hg] 35-45 Blood pO2 56 mm[Hg] 79-93 Arterial blood bicarbonate measurement (moles/volume) 24 mmol/L 23-27 Arterial blood base excess by calculation -0.3 mmol/L - 2.5-2.5 Arterial blood oxygen saturation measurement 95 % 94-100 * Inhaled oxygen flow rate ROOM AIR NRG Arterial blood pH measurement with patient temperature correction 7.39 7.37-7.43 Arterial blood carbon dioxide, total measurement (moles/volume) 25.4 mmol/L 21.0-31.0 Body site L RADIAL NRG Assessment of wrist artery patency prior to arterial puncture YES- POS NRG Setting of ventilation mode NO NRG Measurement of body temperature 97.5 NRG Encounters ACCT No. Visit Date/Time Discharge Status Pt. Type Provider Facility Loc./Unit Complaint [id number] 05/16/2017 11:18:00 05/16/2017 23:59:59 CLS Outpatient TEENA LOPEZ APRN [facility] RT J45.909 ASTHMA [id number] 12/22/2016 17:15:00 12/22/2016 17:27:00 DIS Emergency KAY ERIC, SINDY Kaur [facility] ER STAPLE REMOVAL [id number] 12/12/2016 21:16:00 12/12/2016 21:53:00 DIS Emergency UCHE ERIC, TOPHER Dykes [facility] ER HEAD LACERATION FROM TREE LIMB [id number] 08/25/2016 09:11:00 08/25/2016 23:59:59 CLS Outpatient JODI JACOB APRN [facility] RAD LEFT ANKLE INJ [id number] 08/17/2016 16:57:00 08/17/2016 23:59:59 CLS Outpatient JODI JACOB APRN [facility] RAD HX OF DVT, ERYTHEMA [id number] 08/11/2016 16:56:00 08/11/2016 17:30:00 DIS Emergency FLETCHER PETE [employer] [facility] ER FOOT PAIN [id number] 03/21/2016 11:27:00 03/21/2016 23:59:59 CLS Preadmit LEE GIVENS [employer] REPAIRER [facility] REHAB LT SHOULDER IMPINGEMENT SYNDROME [id number] 01/29/2015 07:56:00 01/29/2015 08:47:00 DIS Outpatient KATJA REID MD [facility] CARD DISC DISORDER [id number] 12/06/2011 05:31:00 Document Registration [id number] 12/04/2011 08:14:00 Document Registration [id number] 05/16/2016 14:09:00 Document Registration [id number] 04/05/2016 08:45:00 Document Registration [id number] 02/11/2016 18:05:00 Document Registration [id number] 05/01/2017 10:40:00 05/01/2017 23:59:59 CLS Outpatient KINGSLEYL KEITH HECK [facility] [place] [id number] 05/01/2017 10:40:00 Document Registration
[2017-07-23 17:40] LABS: ABG OXYGEN SATURATION 97 % (94-100); ABG PCO2 61 MMHG (35-45); ABG PO2 78 MMHG (79-93); ABG TCO2 33.2 MMOL/L (21.0-31.0)
[2017-07-23 17:42] LABS: ABG PH 7.32 (7.37-7.43)
[2017-07-23 17:43] LABS: ALLENS TEST YES-POS; INSPIRED O2 60%; VENTILATOR NO
[2017-07-23] MEDS ORDERED: methylPREDNISolone 125 MG (Solu-MEDROL) VIAL IV STA (18:43)
--- NOTE | 2017-07-23 18:50 | ED Respiratory ---
General Stated Complaint: SOA Source: patient, EMS Exam Limitations: clinical condition (SINDY VILLANUEVA MD) History of Present Illness Date Seen by Provider: Jul 23, 2017 Time Seen by Provider: 17:24 Initial Comments Here with report of respiratory failure per EMS. EMS brought patient in on DuoNeb 10 L due to O2 saturations 70 at the house. Patient was just released from the hospital a few days ago for pneumonia. At home, EMS reports that the patient was on her emergency oxygen bottles which were empty. They did note that she had cigarette butts at the side of the bed but patient states that she is not smoking anymore. DuoNeb was helping marginally. Patient denies nausea or vomiting. Does report significant short of breath and history limited due to patient's clinical condition Timing/Duration: this morning Severity: severe Prior Episodes/Possible Cause: frequent episodes Modifying Factors: Improves With Albuterol Nebulizer, Improves With Oxygen Associated Symptoms: No cough, No fever/chills; nasal congestion, shortness of breath, wheezing (SINDY VILLANUEVA MD) Allergies and Home Medications Allergies Coded Allergies: aspirin (Unverified Allergy, Severe, HIVES, DIFFICULTY BREATHING, 07/18/17) Penicillins (Unverified Allergy, Unknown, RASH, 08/11/16) Sulfa (Sulfonamide Antibiotics) (Unverified Allergy, Unknown, RASH, ) codeine (Verified Allergy, Unknown, 08/11/16) tetracycline (Unverified Allergy, Unknown, RASH, 08/11/16) Home Medications Azithromycin 250 Mg Tablet, 250 MG PO DAILY Prescribed by: RACHAEL PIPER on 07/20/17 1322 Prednisone 20 Mg Tab, 40 MG PO DAILY@0700 Prescribed by: RACHAEL PIPER on 07/20/17 1322 Patient Home Medication List Home Medication List Reviewed: Yes (SINDY VILLANUEVA MD) Review of Systems Constitutional: see HPI; No chills, No fever Respiratory: cough, short of breath, wheezing Cardiovascular: no symptoms reported Gastrointestinal: No abdominal pain, No nausea, No vomiting Review of systems Limited due to clinical condition (SINDY VILLANUEVA MD) Past Hsnqtwe-Vuorhw-Wrbkdy Hx Past Med/Social Hx: Reviewed Nursing Past Med/Soc Hx (SINDY VILLANUEVA MD) Patient Social History Alcohol Use: Denies Use Recreational Drug Use: No Smoking Status: Former Smoker Type Used: Cigarettes Former Smoker, Quit: Jul 16, 2017 Recent Hopitalizations: No (SINDY VILLANUEVA MD) Immunizations Up To Date Date of Pneumonia Vaccine: Feb 12, 2009 (SINDY VILLANUEVA MD) Seasonal Allergies Seasonal Allergies: No (SINDY VILLANUEVA MD) Past Medical History Surgeries: Yes Appendectomy Respiratory: Yes COPD Currently Using BIPAP: Yes Cardiac: Yes Deep Vein Thrombosis Neurological: No (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, CAUSES FREQ HEADACHES) Headaches /Migraines, Neuropathy Genitourinary: No UTI-Chronic Gastrointestinal: No (HEP C ) Hepatitis Musculoskeletal: Yes (SEVERAL BROKEN BONES, DDD IN BACK) Chronic Back Pain Endocrine: Yes Diabetes, Insulin dep HEENT: No Cancer: No Psychosocial: No Integumentary: No (SINDY VILLANUEVA MD) Family Medical History Reviewed Nursing Family Hx (SINDY VILLANUEVA MD) No Pertinent Family Hx (SINDY VILLANUEVA MD) Physical Exam Vital Signs Vital Signs - First Documented 07/23/17 07/23/17 17:19 17:41 Temp 97.6 Pulse 83 Resp 33 B/P (MAP) 129/84 (99) Pulse Ox 97 O2 Delivery Nasal Cannula O2 Flow Rate 10.00 (FANNIE GAITAN) Vital Signs Capillary Refill : (SINDY VILLANUEVA MD) General Appearance: WD/WN, no apparent distress, obese HEENT: PERRL/EOMI, pharynx normal Neck: full range of motion, supple Respiratory: decreased breath sounds, accessory muscle use, wheezing Cardiovascular: regular rate, rhythm, no murmur Gastrointestinal: non tender, soft Extremities: non-tender, normal inspection Neurologic/Psychiatric: alert, oriented x 3 Skin: normal color, warm/dry (SINDY VILLANUEVA MD) Focused Exam Lactate Level 07/23/17 17:21: Lactic Acid Level 1.02 (FANNIE GAITAN) Lactic Acid Level Laboratory Tests Test 07/23/17 17:21 Lactic Acid Level 1.02 MMOL/L (0.50-2.00) (FANNIE GAITAN) Progress/Results/Core Measures Suspected Sepsis SIRS Temperature: Pulse: 86 Respiratory Rate: 26 Laboratory Tests 07/23/17 19:18: White Blood Count 5.6 Blood Pressure 107 /69 Mean: 07/23/17 17:21: Lactic Acid Level 1.02 Laboratory Tests 07/23/17 18:35: Creatinine 1.02, INR Comment 1.1, Total Bilirubin 0.7 07/23/17 19:18: Platelet Count 132 (SINDY VILLANUEVA MD) Results/Orders Lab Results Laboratory Tests Test 07/23/17 17:21 07/23/17 17:30 07/23/17 18:35 07/23/17 18:48 Range/Units Lactic Acid Level 1.02 0.50-2.00 MMOL/L Blood Gas Puncture Site LT RAD Blood Gas Patient Temperature 95.0 Arterial Blood pH 7.32 *L 7.37-7.43 Arterial Blood Partial Pressure CO2 61 H 35-45 MMHG Arterial Blood Partial Pressure O2 78 L 79-93 MMHG Arterial Blood HCO3 31 H 23-27 MMOL/L Arterial Blood Total CO2 33.2 H 21.0-31.0 MMOL/L Arterial Blood Oxygen Saturation 97 94-100 % Arterial Blood Base Excess 5.0 H -2.5-2.5 MMOL/L Alberto Test YES-POS Blood Gas Ventilator Setting NO Blood Gas Inspired Oxygen 60% Prothrombin Time 14.5 12.2-14.7 SEC INR Comment 1.1 0.8-1.4 Activated Partial Thromboplast Time 20 L 24-35 SEC Sodium Level 141 135-145 MMOL/L Potassium Level 5.3 H 3.6-5.0 MMOL/L Chloride Level 106 98-107 MMOL/L Carbon Dioxide Level 27 21-32 MMOL/L Anion Gap 8 5-14 MMOL/L Blood Urea Nitrogen 25 H 7-18 MG/DL Creatinine 1.02 0.60-1.30 MG/DL Estimat Glomerular Filtration Rate 55 BUN/Creatinine Ratio 25 Glucose Level 169 H 70-105 MG/DL Calcium Level 8.5 8.5-10.1 MG/DL Magnesium Level 2.2 1.8-2.4 MG/DL Total Bilirubin 0.7 0.1-1.0 MG/DL Aspartate Amino Transf (AST/SGOT) 20 5-34 U/L Alanine Aminotransferase (ALT/SGPT) 24 0-55 U/L Alkaline Phosphatase 91 40-136 U/L Troponin I < 0.30 <0.30 NG/ML Total Protein 7.4 6.4-8.2 GM/DL Albumin 2.9 L 3.2-4.5 GM/DL Urine Color YELLOW Urine Clarity CLEAR Urine pH 5 5-9 Urine Specific [place] 1.020 1.016-1.022 Urine Protein 2+ H NEGATIVE Urine Glucose (UA) NEGATIVE NEGATIVE Urine Ketones NEGATIVE NEGATIVE Urine Nitrite NEGATIVE NEGATIVE Urine Bilirubin NEGATIVE NEGATIVE Urine Urobilinogen 4 H NORMAL MG/DL Urine Leukocyte Esterase NEGATIVE NEGATIVE Urine RBC (Auto) 3+ H NEGATIVE Urine RBC 5-10 H /HPF Urine WBC NONE /HPF Urine Squamous Epithelial Cells RARE /HPF Urine Crystals NONE /LPF Urine Bacteria NEGATIVE /HPF Urine Casts NONE /LPF Urine Mucus NEGATIVE /LPF Urine Culture Indicated NO Test 07/23/17 19:18 Range/Units White Blood Count 5.6 4.3-11.0 10^3/uL Red Blood Count 3.39 L 4.35-5.85 10^6/uL Hemoglobin 10.9 L 11.5-16.0 G/DL Hematocrit 34 L 35-52 % Mean Corpuscular Volume 102 H 80-99 FL Mean Corpuscular Hemoglobin 32 25-34 PG Mean Corpuscular Hemoglobin Concent 32 32-36 G/DL Red Cell Distribution Width 17.0 H 10.0-14.5 % Platelet Count 132 130-400 10^3/uL Mean Platelet Volume 10.2 7.4-10.4 FL Neutrophils (%) (Auto) 78 H 42-75 % Lymphocytes (%) (Auto) 9 L 12-44 % Monocytes (%) (Auto) 12 0-12 % Eosinophils (%) (Auto) 0 0-10 % Basophils (%) (Auto) 0 0-10 % Neutrophils # (Auto) 4.4 1.8-7.8 X 10^3 Lymphocytes # (Auto) 0.5 L 1.0-4.0 X 10^3 Monocytes # (Auto) 0.7 0.0-1.0 X 10^3 Eosinophils # (Auto) 0.0 0.0-0.3 10^3/uL Basophils # (Auto) 0.0 0.0-0.1 10^3/uL B-Type Natriuretic Peptide 150.8 H <100.0 PG/ML (FANNIE GAITAN) Vital Signs/I&O 6/11/18 6/11/18 6/11/18 17:19 17:41 18:30 Temp 97.6 Pulse 83 86 Resp 33 23 26 B/P (MAP) 129/84 (99) Pulse Ox 97 O2 Delivery Nasal Cannula O2 Flow Rate 10.00 60.00 60.00 (FANNIE GAITAN) Vital Signs/I&O Capillary Refill : (SINDY VILLANUEVA MD) Progress Note : Progress Note Seen and evaluated on arrival by EMS. Patient in severe respiratory distress. O2 sats 92 percent on 10 L via nebulizer with DuoNeb running. Elected to go directly to BiPAP. Patient reports that she is DO NOT RESUSCITATE so intubation was not an option. BiPAP was initiated with albuterol neb 3 ordered. IV, labs and chest x-ray ordered. Blood cultures and lactic acid ordered. Patient was a very hard IV stick and multiple attempts failed. Ultimately patient did get line to the left upper breast and labs drawn. Patient better with BiPAP. ABG was done and reviewed. Monitor patient. 1950: Patient's improving significantly on BiPAP at 18/6. FiO2 was 60 percent. Chest x-ray does show the large cardiac silhouette. We have added BNP. 2030: I have consulted Dr. Morris due to the large cardiac silhouette. BNP is 150. We have added EKG as well. Patient remains improved and feeling much better. O2 sat 95 percent on BiPAP with heart rate is 72 and blood pressure 165/83. No indication of infection currently. Unsure of which antibiotics she is on at home after the last hospitalization and this can be reevaluated in the morning if needed by primary. Patient reports she has taken her medicines today. We will initiate Lasix 40 mg IV twice a day and have ordered echocardiogram for the morning. All of this was discussed with the patient who agrees. Admit, inpatient status. (SINDY VILLANUEVA MD) Progress Note : Time: 20:59 Progress Note Assume control the patient at 0. The patient is sitting up signing paperwork and ready to be admitted. Cardiology has been consulted and Dr. Moreno is the admitting physician. Dr. Villanueva has instructed me to review her EKG and troponin before she goes up and if there are any changes we will work with cardiology. Otherwise she is admitted and ready to go upstairs. Her examination is improved since when I saw her at 1800. She has more cognizant, wearing the BiPAP and alert. 2119: Troponin and EKG are okay. We will proceed with the prearranged orders, plan by ER and primary care. (FANNIE GAITAN) ECG Initial ECG Impression Date: Jul 23, 2017 Initial ECG Impression Time: 20:52 Initial ECG Rate: 77 Initial ECG Rhythm: Normal Sinus Initial ECG Intervals: Normal Initial ECG Impression: Normal, Nonspecific Changes Comment No acute ST elevation or depression. (FANNIE GAITAN) Diagnostic Imaging Diagonstic Imaging: Xray Plain Films/CT/US/NM/MRI: chest Comments VIA [facility]. [place], [place] NAME: [facility] MEDRANO [facility] REC#: [id number] PT STATUS: REG ER : 1955 PHYSICIAN: SINDY VILLANUEVA MD ADMIT DATE: 07/23/17/ER Draft Date of Exam:07/23/17 CHEST 1 VIEW, AP/PA ONLY INDICATION: Shortness of breath. TECHNIQUE: Single-view chest at 7:08 p.m. CORRELATION STUDY: 07/20/2017. FINDINGS: Marked cardiac enlargement with prominent mediastinum does appear to be increased from prior study. Vasculature is largely obscured. Left diaphragm is largely obscured by the cardiac enlargement. There is some degree of atelectasis, infiltrate, or edema about the lung bases suggested. IMPRESSION: 1. Rather pronounced severity cardiac enlargement with prominent mediastinum does appear to be a change from prior study. Vasculature is largely obscured but does not appear to be adversely increased when compared to the prior examination. 2. Lung bases are largely obscured by the cardiac enlargement. Possibility of a basilar infiltrate, edema, and/or atelectasis along with effusions is not excluded. Dictated on workstation # [id number] Dict: 07/23/171928 Trans: 07/23/171935 [id number] Interpreted by: JUANITA WALDROP DO Electronically signed by: Reviewed: Reviewed by Me (SINDY VILLANUEVA MD) Departure Communication (Admissions) Time/Spoke to Admitting Phy: 19:50 Time/Spoke to Consulting Phy: 20:30 (SINDY VILLANUEVA MD) Impression Primary Impression: COPD with acute exacerbation Additional Impressions: Hypoxemia Respiratory failure with hypoxia and hypercapnia Qualified Codes: J96.01 - Acute respiratory failure with hypoxia; J96.02 - Acute respiratory failure with hypercapnia Cardiomegaly Disposition: ADMITTED INPATIENT Condition: Stable Admissions Decision to Admit Reason: Admit from ER (General) Decision to Admit/Date: Jul 23, 2017 Time/Decision to Admit Time: 19:50 (SINDY VILLANUEVA MD) Departure-Patient Inst. Referrals: YVAN BUSTILLOS DO (PCP) Primary Care Physician KEITH HINKLE (Family) Primary Care Physician SINDY VILLANUEVA MD Jul 23, 2017 18:50 FANNIE GAITAN Jul 23, 2017 21:00
[2017-07-23 18:57] LABS: BILIRUBIN,URINE NEGATIVE (NEGATIVE); CLARITY,URINE CLEAR; COLOR,URINE YELLOW; GLUCOSE, URINE (UA) NEGATIVE (NEGATIVE); KETONES,URINE NEGATIVE (NEGATIVE); LEUKOCYTE ESTERASE ,URINE NEGATIVE (NEGATIVE); NITRITE,URINE NEGATIVE (NEGATIVE); PH,URINE 5 (5-9); PROTEIN,URINE 2+ (NEGATIVE); UROBILINOGEN,URINE 4 MG/DL (NORMAL)
[2017-07-23 19:03] LABS: INR 1.1 (0.8-1.4); PROTHROMBIN TIME PATIENT 14.5 SEC (12.2-14.7)
[2017-07-23 19:07] LABS: BACTERIA,URINE NEGATIVE /HPF; SQUAMOUS EPITHELIAL CELL,UR RARE /HPF
[2017-07-23 19:09] LABS: ALBUMIN 2.9 GM/DL (3.2-4.5); BILIRUBIN,TOTAL 0.7 MG/DL (0.1-1.0); CALCIUM 8.5 MG/DL (8.5-10.1); CREATININE SERUM 1.02 MG/DL (0.60-1.30); POTASSIUM 5.3 MMOL/L (3.6-5.0); TOTAL PROTEIN 7.4 GM/DL (6.4-8.2)
[2017-07-23 19:23] LABS: BASOPHILS % (AUTO) 0 % (0-10); EOSINOPHILS % (AUTO) 0 % (0-10); HEMATOCRIT 34 % (35-52); HEMOGLOBIN 10.9 G/DL (11.5-16.0); LYMPHOCYTES # (AUTO) 0.5 X 10^3 (1.0-4.0); LYMPHOCYTES % (AUTO) 9 % (12-44); MEAN CORPUSCULAR HEMOGLOBIN 32 PG (25-34); MEAN CORPUSCULAR HGB CONC 32 G/DL (32-36); MEAN CORPUSCULAR VOLUME 102 FL (80-99); MEAN PLATELET VOLUME 10.2 FL (7.4-10.4); MONOCYTES # (AUTO) 0.7 X 10^3 (0.0-1.0); MONOCYTES % (AUTO) 12 % (0-12); NEUTROPHILS # (AUTO) 4.4 X 10^3 (1.8-7.8); NEUTROPHILS % (AUTO) 78 % (42-75); PLATELET COUNT 132 10^3/uL (130-400); RED BLOOD COUNT 3.39 10^6/uL (4.35-5.85); WHITE BLOOD COUNT 5.6 10^3/uL (4.3-11.0)
--- NOTE | 2017-07-23 19:37 | Diagnostic Imaging Report ---
INDICATION: Shortness of breath. TECHNIQUE: Single-view chest at 7:08 p.m. CORRELATION STUDY: 07/20/2017. FINDINGS: Marked cardiac enlargement with prominent mediastinum does appear to be increased from prior study. Vasculature is largely obscured. Left diaphragm is largely obscured by the cardiac enlargement. There is some degree of atelectasis, infiltrate, or edema about the lung bases suggested. IMPRESSION: 1. Rather pronounced severity cardiac enlargement with prominent mediastinum does appear to be a change from prior study. Vasculature is largely obscured but does not appear to be adversely increased when compared to the prior examination. 2. Lung bases are largely obscured by the cardiac enlargement. Possibility of a basilar infiltrate, edema, and/or atelectasis along with effusions is not excluded. Dictated by: Dictated on workstation # [id number]
[2017-07-23] MEDS ORDERED: FUROSEMIDE 40 MG/4 ML INJ (LASIX) IV STA (20:37)
[2017-07-23 20:53] LABS: MAGNESIUM 2.2 MG/DL (1.8-2.4)
--- OUTSIDE RECORDS SUMMARY | 2017-07-23 21:33 | XMS REPORT | Continuity of Care Document ---
Author Author [facility] Organization [facility] Address Unknown Phone Unavailable Allergies Active Description Code Type Severity Reaction Onset Reported/Identified Relationship to Patient Clinical Status Yes aspirin [id number] Drug Allergy Unknown NAUSEA 08/11/2016 Yes codeine [id number] Drug Allergy Unknown N/A 08/11/2016 Yes Penicillins [id number] Drug Allergy Unknown RASH 08/11/2016 Yes Sulfa (Sulfonamide Antibiotics) [id number] Drug Allergy Unknown RASH 2016 Yes tetracycline [id number] Drug Allergy Unknown RASH 08/11/2016 Medications There [...] 01/29/2015 KATJA REID MD Ot Z79.899 OTHER USP (CURRENT) DRUG THERAPY 03/15/2016 Ot 214.1 LIPOMA [...] OR 08/11/2016 FLETCHER PETE APRN Ot Z79.01 USP (CURRENT) USE OF ANTICOAGULANT 08/11/2016 FLETCHER PETE [...] OR 08/14/2016 FLETCHER PETE APRN Ot Z79.01 ACETYLENE GAS COMPRESSOR (CURRENT) USE OF ANTICOAGULANT 08/14/2016 FLETCHER PETE [...] OR 08/17/2016 FLETCHER PETE APRN Ot Z79.01 USP (CURRENT) USE OF ANTICOAGULANT 08/17/2016 FLETCHER PETE [...] SCREEN- BACTERIAL DIS NEC 08/17/2016 JODI JACOB PRINTMAKER Ot M79.672 PAIN IN LEFT FOOT 08/18/2016 JODI JACOB PRINTMAKER Ot M71.22 SYNOVIAL CYST OF POPLITEAL SPACE [[place]] 08/18/2016 JODI JACOB APRN Ot M79.672 PAIN IN LEFT FOOT 08/18/2016 JODI JACOB APRN Ot Z86.718 PERSONAL HISTORY OF OTHER VENOUS THROMBO 08/31/2016 JODI JACOB APRN Ot M67.972 UNSP DISORDER OF SYNOVIUM AND TENDON, LE 08/31/2016 JODI JACOB APRN Ot M85.862 OT DISRD OF BONE DENSITY AND STRUCTURE, 08/31/2016 JODI JACOB PRINTMAKER Ot S93.692A OTHER SPRAIN OF LEFT FOOT, INITIAL ENCOU 08/31/2016 JODI JACOB PRINTMAKER Ot X58.XXXA EXPOSURE TO OTHER SPECIFIED FACTORS, INI 08/31/2016 JODI JACOB PRINTMAKER Ot Y99.8 OTHER EXTERNAL CAUSE STATUS 09/08/2016 JODI JACOB PRINTMAKER Ot M71.22 SYNOVIAL CYST OF POPLITEAL SPACE [[place]] 09/08/2016 JODI JACOB PRINTMAKER Ot M79.672 PAIN IN LEFT FOOT 09/08/2016 JODI JACOB PRINTMAKER Ot Z86.718 PERSONAL HISTORY OF OTHER VENOUS THROMBO 09/15/2016 JODI JACOB PRINTMAKER Ot M67.972 UNSP DISORDER OF SYNOVIUM AND TENDON, LE 09/15/2016 JODI JACOB PRINTMAKER Ot M85.862 OTH DISRD OF BONE DENSITY AND STRUCTURE, 09/15/2016 JODI JACOB PRINTMAKER Ot S93.692A OTHER SPRAIN OF LEFT FOOT, INITIAL ENCOU 09/15/2016 JODI JACOB PRINTMAKER Ot X58.XXXA EXPOSURE TO OTHER SPECIFIED FACTORS, INI 09/15/2016 JODI JACOB PRINTMAKER Ot Y99.8 OTHER EXTERNAL CAUSE STATUS 09/15/2016 JODI JACOB PRINTMAKER Ot M71.22 SYNOVIAL CYST OF POPLITEAL SPACE [[place]] 09/15/2016 JODI JACOB PRINTMAKER Ot M79.672 PAIN IN LEFT FOOT 09/15/2016 JODI JACOB PRINTMAKER Ot Z86.718 PERSONAL HISTORY OF OTHER VENOUS THROMBO 09/22/2016 JODI JACOB PRINTMAKER Ot M67.972 UNSP DISORDER OF SYNOVIUM AND TENDON, LE 09/22/2016 JODI JACOB PRINTMAKER Ot M85.862 OTH DISRD OF BONE DENSITY AND STRUCTURE, 09/22/2016 JODI JACOB PRINTMAKER Ot S93.692A OTHER SPRAIN OF LEFT FOOT, INITIAL ENCOU 09/22/2016 JODI JACOB PRINTMAKER Ot X58.XXXA EXPOSURE TO OTHER SPECIFIED FACTORS, INI 09/22/2016 JODI JACOB PRINTMAKER Ot Y99.8 OTHER EXTERNAL CAUSE STATUS 12/12/2016 [...] OBJECT 12/12/2016 TOPHER IVEY MD Ot Z79.01 ACETYLENE GAS COMPRESSOR (CURRENT) USE OF ANTICOAGULANT 12/12/2016 TOPHER IVEY MD Ot Z79.4 USP (CURRENT) USE OF INSULIN 12/12/2016 TOPHER IVEY [...] - 05/01/17 12:31 ABSOLUTE NEUTROPHILS 3105 cells/uL [id number] ABSOLUTE MONOCYTES 270 cells/uL 200-950 ABSOLUTE EOSINOPHILS [...] Status Pt. Type Provider Facility Loc./Unit Complaint [id number] 05/16/2017 11:18:00 05/16/2017 23:59:59 CLS Outpatient TEENA LOPEZ APRN [facility] RT J45.909 ASTHMA [id number] 12/22/2016 17:15:00 12/22/2016 17:27:00 DIS Emergency KAY ERIC, SINDY Kaur [facility] ER STAPLE REMOVAL [id number] 12/12/2016 21:16:00 12/12/2016 21:53:00 DIS Emergency UCHE ERIC, TOPHER Dykes [facility] ER HEAD LACERATION FROM TREE LIMB [id number] 08/25/2016 09:11:00 08/25/2016 23:59:59 CLS Outpatient JODI JACOB APRN [facility] RAD LEFT ANKLE INJ [id number] 08/17/2016 16:57:00 08/17/2016 23:59:59 CLS Outpatient JODI JACOB APRN [facility] RAD HX OF DVT, ERYTHEMA [id number] 08/11/2016 16:56:00 08/11/2016 17:30:00 DIS Emergency FLETCHER PETE PRINTMAKER [facility] ER FOOT PAIN [id number] 03/21/2016 11:27:00 03/21/2016 23:59:59 CLS Preadmit LEE GIVENS OCCUPATIONAL THERAPIST ASSISTANT [facility] REHAB LT SHOULDER IMPINGEMENT SYNDROME [id number] 01/29/2015 07:56:00 01/29/2015 08:47:00 DIS Outpatient KATJA REID MD [facility] CARD DISC DISORDER [id number] 12/06/2011 05:31:00 Document Registration [id number] 12/04/2011 08:14:00 Document Registration [id number] 05/16/2016 14:09:00 Document Registration [id number] 04/05/2016 08:45:00 Document Registration [id number] 02/11/2016 18:05:00 Document Registration [id number] 05/01/2017 10:40:00 05/01/2017 23:59:59 CLS Outpatient KINGSLEYL KEITH HECK [facility] [place] [id number] 05/01/2017 10:40:00 Document Registration
[2017-07-23 21:40] VITALS: BP 138/72
[2017-07-23 21:59] VITALS: BP 139/68
[2017-07-23 22:00] VITALS: BP 134/69
[2017-07-23] MEDS: methylPREDNISolone 125 MG (Solu-MEDROL) VIAL IV SCH (23:23)
[2017-07-23] MEDS: NS IV 1000 ML 1,000 ML IV SCH (23:23)
[2017-07-24] VITALS (16 sets, daily range): BP systolic 134–167; BP diastolic 54–93
[2017-07-24] MEDS ORDERED: RT-ALBUTEROL/IPRATROPIUM 3 ML (DUONEB) VIAL INH PRN (00:45)
[2017-07-24] MEDS: RT-ALBUTEROL/IPRATROPIUM 3 ML (DUONEB) VIAL INH SCH ×6 (01:47→21:24)
[2017-07-24 03:56] LABS: BASOPHILS % (AUTO) 0 % (0-10); EOSINOPHILS % (AUTO) 0 % (0-10); HEMATOCRIT 34 % (35-52); HEMOGLOBIN 10.5 G/DL (11.5-16.0); LYMPHOCYTES # (AUTO) 0.1 X 10^3 (1.0-4.0); LYMPHOCYTES % (AUTO) 4 % (12-44); MEAN CORPUSCULAR HEMOGLOBIN 33 PG (25-34); MEAN CORPUSCULAR HGB CONC 31 G/DL (32-36); MEAN CORPUSCULAR VOLUME 105 FL (80-99); MEAN PLATELET VOLUME 10.2 FL (7.4-10.4); MONOCYTES # (AUTO) 0.1 X 10^3 (0.0-1.0); MONOCYTES % (AUTO) 4 % (0-12); NEUTROPHILS # (AUTO) 3.5 X 10^3 (1.8-7.8); NEUTROPHILS % (AUTO) 93 % (42-75); PLATELET COUNT 104 10^3/uL (130-400); RED BLOOD COUNT 3.23 10^6/uL (4.35-5.85); RED CELL DISTRIBUTION WIDTH 16.9 % (10.0-14.5); WHITE BLOOD COUNT 3.7 10^3/uL (4.3-11.0)
[2017-07-24 04:30] LABS: ALBUMIN 2.8 GM/DL (3.2-4.5); BILIRUBIN,TOTAL 0.7 MG/DL (0.1-1.0); CALCIUM 8.7 MG/DL (8.5-10.1); CREATININE SERUM 1.06 MG/DL (0.60-1.30); POTASSIUM 5.2 MMOL/L (3.6-5.0); TOTAL PROTEIN 7.4 GM/DL (6.4-8.2)
[2017-07-24] MEDS: methylPREDNISolone 125 MG (Solu-MEDROL) VIAL IV SCH ×3 (06:08→18:12)
[2017-07-24] MEDS: FUROSEMIDE 40 MG/4 ML INJ (LASIX) IV SCH ×2 (06:08→16:30)
[2017-07-24] MEDS: inSUlin ASPART (NovoLOG) 1 UNIT/0.01 ML (CHARGE PER UNIT) SC SCH ×4 (06:15→21:33)
--- NOTE | 2017-07-24 09:04 | Consultation-Cardiology ---
HPI-Cardiology Cardiology Consultation: Date of Consultation 07/24/17 Time Seen by Provider: 08:40 Date of Admission Attending Physician Sarah Godoy DO Admitting Physician Susy Contreras DO Consulting Physician Flex Morris MD HPI: Chief Complaint: Dyspnea Cardiomegaly Ms. Kang is a 61 year old female admitted to ICU 5 from the ED. She is currently on Bi-pap. She reports she was just recently released from the hospital a day ago after being treated for pneumonia. She was to go see her primary physician in [place] yesterday d/t increasing SOB at home. She reports when she got to [place] she was too short of breath and weak to get out of the car. She reports occ non-productive cough for the last few days. She reports occ sharp stabbing chest pains which only last a few seconds and occur with or without activity or emotional stress. She states these have been present for several months. She states she is oxygen dependant at home, but has only been wearing it when she feels like she needs it. She reports chronic bilat LE edema which is least in the morning and worse at the end of the day. She denies any syncope or near syncope. No c/o palpitations. No c/o n/v/d. She reports she quit smoking approx 1 weeks ago. Review of Systems-Cardiology Review of Systems Constitutional: No chills, No fever; malaise Eyes: No vision change Ears/Nose/Throat: No epistaxis, No recent hearing loss Respiratory: As described under HPI Cardiovascular: As described under HPI Gastrointestinal: No constipation, No diarrhea, No nausea, No vomiting Genitourinary: No dysuria, No hematuria Skin: No rash, No ulcerations Psychiatric/Neurological: No seizure, No focal weakness, No syncope Hematologic: No bleeding abnormalities WDR-Obprim-Udzesl Hx Patient Social History Alcohol Use: Denies Use Recreational Drug Use: No (past IV drug use per daughter) Smoking Status: Current Everyday Smoker Type Used: Cigarettes Recent Foreign Travel: No Recent Infectious Disease Expo: No Hospitalization with Isolation: Denies Physical Abuse Screen: No Sexual Abuse: No Immunizations Up To Date Date of Pneumonia Vaccine: Feb 12, 2009 Past Medical History PMH As described under Assessment. Family Medical History Family Medical History: Reports her mother had a CVA. Father had CAD. Allergies and Home Medications Allergies Coded Allergies: aspirin (Unverified Allergy, Severe, HIVES, DIFFICULTY BREATHING, 07/18/17) Penicillins (Unverified Allergy, Unknown, RASH, 08/11/16) Sulfa (Sulfonamide Antibiotics) (Unverified Allergy, Unknown, RASH, ) codeine (Verified Allergy, Unknown, 08/11/16) tetracycline (Unverified Allergy, Unknown, RASH, 08/11/16) Home Medications Azithromycin 250 Mg Tablet, 250 MG PO DAILY Prescribed by: RACHAEL PIPER on 07/20/17 1322 Prednisone 20 Mg Tab, 40 MG PO DAILY@0700 Prescribed by: RACHAEL PIPER on 07/20/17 1322 Physical Exam-Cardiology Physical Exam Vital Signs/I&O 07/25/17 07/25/17 07/25/17 07/25/17 01:00 01:41 03:40 04:00 Temp 97.6 Pulse 75 62 67 66 Resp 16 25 23 B/P (MAP) 143/82 (102) Pulse Ox 95 95 98 O2 Delivery NIV Bilevel O2 Flow Rate 80.00 80.00 65.00 07/25/17 07/25/17 07/25/17 07/25/17 04:00 06:39 07:00 08:00 Temp 97.3 Pulse 60 61 70 Resp 12 21 B/P (MAP) 163/89 (113) Pulse Ox 95 92 O2 Delivery NIV Bilevel NIV Bilevel O2 Flow Rate 65.00 80.00 65.00 07/25/17 10:27 Pulse Ox 95 O2 Delivery Vapotherm O2 Flow Rate 40.00 FiO2 100 07/25/17 00:00 Intake Total 1090 ml Output Total 2025 ml Balance -935 ml Capillary Refill : Greater Than 3 Seconds Constitutional: AAO x 3, well-developed, well-nourished (obese) HEENT: PERRL, hearing is well preserved Neck: No carotid bruit; carotid pulses are 2 + bilaterally Respiratory: chest expansion is symmetric, chest is bilaterally symmetric, other (Bi-pap in place; diminished lower lobes with fair air entry) Cardiovascular: regular rate-rhythm; No JVD; S1 and S2 Gastrointestinal: soft, round, audible bowel sounds Rectal: deferred Genital/Rectal: other (Urinary catheter to DD; clear, yellow urine) Extremities: no lower extremity edema bilateral Neurologic/Psychiatric: grossly intact Skin: No rash, No ulcerations Data Review Labs Laboratory Tests 07/24/17 15:52: Glucometer 193H 07/24/17 21:24: Glucometer 207H 07/25/17 03:20: White Blood Count 4.2L, Red Blood Count 3.30L, Hemoglobin 10.2L, Hematocrit 34L , Mean Corpuscular Volume 104H, Mean Corpuscular Hemoglobin 31, Mean Corpuscular Hemoglobin Concent 30L, Red Cell Distribution Width 16.6H, Platelet Count 111L, Mean Platelet Volume 10.2, Sodium Level 143, Potassium Level 4.9, Chloride Level 103, Carbon Dioxide Level 30, Anion Gap 10, Blood Urea Nitrogen 32H, Creatinine 1.15, Estimat Glomerular Filtration Rate 48, BUN/Creatinine Ratio 28, Glucose Level 178H, Calcium Level 8.7, Magnesium Level 2.2, Total Bilirubin 0.7, Aspartate Amino Transf (AST/SGOT) 25, Alanine Aminotransferase ( ALT/SGPT) 24, Alkaline Phosphatase 73, Total Protein 7.6, Albumin 2.9L, Triglycerides Level 74, Cholesterol Level 93, LDL Cholesterol Direct 50, VLDL Cholesterol 15, HDL Cholesterol 28L, Thyroid Stimulating Hormone (TSH) 16.47H 07/25/17 12:14: Glucometer 241H Microbiology 07/23/17 Blood Culture - Preliminary, Resulted No growth Radiology NAME: [facility] MEDRANO [facility] REC#: [id number] PT STATUS: ADM IN : 1955 PHYSICIAN: SINDY VILLANUEVA MD ADMIT DATE: 07/23/17/ICU Signed Date of Exam: 07/23/17 CHEST 1 VIEW, AP/PA ONLY INDICATION: Shortness of breath. TECHNIQUE: Single-view chest at 7:08 p.m. CORRELATION STUDY: 07/20/2017. FINDINGS: Marked cardiac enlargement with prominent mediastinum does appear to be increased from prior study. Vasculature is largely obscured. Left diaphragm is largely obscured by the cardiac enlargement. There is some degree of atelectasis, infiltrate, or edema about the lung bases suggested. IMPRESSION: 1. Rather pronounced severity cardiac enlargement with prominent mediastinum does appear to be a change from prior study. Vasculature is largely obscured but does not appear to be adversely increased when compared to the prior examination. 2. Lung bases are largely obscured by the cardiac enlargement. Possibility of a basilar infiltrate, edema, and/or atelectasis along with effusions is not excluded. Dictated by: Dictated on workstation # [id number] Dict: 07/23/171928 Trans: 07/23/172226 Interpreted by: JUANITA WALDROP DO Electronically signed by: JUANITA WALDROP DO 07/23/172226 ECG Impression ECG Initial ECG Rhythm: Normal Sinus A/P-Cardiology Assessment/Admission Diagnosis Cardiomegaly seen on CXR of 07-23-17 Acute on chronic resp failure likely multifactorial d/t obesity-hypoventilation syndrome, COPD, asthma Recently treated for pneumonia - dismissed 2 days ago Acute on chronic exacerbation of COPD H/O PAF for which she was on OAC, but this was stopped d/t bleeding and widely varying INR's Reported h/o allergy to ASA - reports hives DM 2 Hypothyroidism - replacement tx Asthma CKD likely d/t diabetic nephropathy Hyperkalemia likely d/t aggressive diuretics and renal disease Suspected sleep apnea Hypoxia for which she is on supplemental oxygen - has not been compliant HTN Tobaccoism - quit one week ago Morbid obesity - BMI approx 75 Anemia likely d/t chronic disease Discussion and Recomendations Echocardiogram pending IV Lasix as ordered Monitor lab closely Awaiting home med reconciliation - if on any TEODORA/ARB or potassium sparing diuretics advise these not be restarted d/t hyperkalemia Clinical Quality Measures DVT/VTE Risk/Contraindication: Risk Factor Score Per Nursin RFS Level Per Nursing on Admit: 4+=Very High DAYRON TABOR Jul 24, 2017 09:04
--- NOTE | 2017-07-24 16:34 | History & Physicial (CHS) ---
HPI History of Present Illness: Patient discharged on sunday after hospitalization for PNA. Patient was discharged with oxygen but not bipap. Apparently home O2 was not sufficient, and EMS was called; on arrival pt ws noted to have O2 sat of 70% on RA. Duoneb and 10L per facemask given en route to ED. Significant cardiomegaly noted on CXR; admitted for acute on chronic heart failure and aggressive diuresis; pt bipap dependent at the time of admission. Source: patient, family, RN/MD, RN notes reviewed, old records Exam Limitations: clinical condition Date seen by provider: Jul 24, 2017 Time Seen by Provider: 16:39 Attending Physician Sarah Godoy DO PCP Susy Contreras DO Consult Cardiology Date of Admission Jul 23, 2017 at 20:48 Home Medications Home Medications Reviewed patient Home Medication Reconciliation performed by pharmacy medication reconciliations laundry technician and/or nursing. Patients Allergies have been reviewed. Allergies Coded Allergies: aspirin (Unverified Allergy, Severe, HIVES, DIFFICULTY BREATHING, 07/18/17) Penicillins (Unverified Allergy, Unknown, RASH, 08/11/16) Sulfa (Sulfonamide Antibiotics) (Unverified Allergy, Unknown, RASH, ) codeine (Verified Allergy, Unknown, 08/11/16) tetracycline (Unverified Allergy, Unknown, RASH, 08/11/16) [id number] Hx Patient Social History Marrital Status: Living Status: lives in apartment in [place] Employed/Student: unemployed Alcohol Use: Denies Use Recreational Drug Use: No (past IV drug use per daughter - opiates) Drug of Choice: Opiates Smoking Status: Current Everyday Smoker Type Used: Cigarettes Recent Foreign Travel: No Contact w/other who traveled: No Recent Hopitalizations: Yes (d/c 07/20/17) Recent Infectious Disease Expo: No Physical Abuse Screen: No Sexual Abuse: No Immunizations Up To Date Date of Pneumonia Vaccine: Feb 12, 2009 Past Medical History COPD Morbid Obesity Type II Diabetes - IDDM CAD Cirrhois Hypothyroidism Hx IV Drug Abuse Tobacco Abuse Medical Noncompliance Hx of DVT Diabetic Neuropathy Hepatitis C Chronic Back Pain 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 Asthma Anxiety Paroxysmal Atrial Fibrillation - not on oral anticoagulation due to medical noncompliance Family Medical History Significant Family History: No Pertinent Family Hx Review of Systems ([facility]C) Constitutional: see HPI, malaise, weakness EENTM: no symptoms reported Respiratory: see HPI, cough, dyspnea on exertion, short of breath Cardiovascular: no symptoms reported Gastrointestinal: loss of appetite Genitourinary: no symptoms reported : No Musculoskeletal: no symptoms reported Skin: no symptoms reported Psychiatric/Neurological: No Symptoms Reported Reviewed Test Results Reviewed Test Results Lab Laboratory Tests Test 07/23/17 17:21 07/23/17 17:30 07/23/17 18:35 07/23/17 18:48 Range/Units Lactic Acid Level 1.02 0.50-2.00 MMOL/L Blood Gas Puncture Site LT RAD Blood Gas Patient Temperature 95.0 Arterial Blood pH 7.32 *L 7.37-7.43 Arterial Blood Partial Pressure CO2 61 H 35-45 MMHG Arterial Blood Partial Pressure O2 78 L 79-93 MMHG Arterial Blood HCO3 31 H 23-27 MMOL/L Arterial Blood Total CO2 33.2 H 21.0-31.0 MMOL/L Arterial Blood Oxygen Saturation 97 94-100 % Arterial Blood Base Excess 5.0 H -2.5-2.5 MMOL/L Alberto Test YES-POS Blood Gas Ventilator Setting NO Blood Gas Inspired Oxygen 60% Prothrombin Time 14.5 12.2-14.7 SEC INR Comment 1.1 0.8-1.4 Activated Partial Thromboplast Time 20 L 24-35 SEC Sodium Level 141 135-145 MMOL/L Potassium Level 5.3 H 3.6-5.0 MMOL/L Chloride Level 106 98-107 MMOL/L Carbon Dioxide Level 27 21-32 MMOL/L Anion Gap 8 5-14 MMOL/L Blood Urea Nitrogen 25 H 7-18 MG/DL Creatinine 1.02 0.60-1.30 MG/DL Estimat Glomerular Filtration Rate 55 BUN/Creatinine Ratio 25 Glucose Level 169 H 70-105 MG/DL Calcium Level 8.5 8.5-10.1 MG/DL Magnesium Level 2.2 1.8-2.4 MG/DL Total Bilirubin 0.7 0.1-1.0 MG/DL Aspartate Amino Transf (AST/SGOT) 20 5-34 U/L Alanine Aminotransferase (ALT/SGPT) 24 0-55 U/L Alkaline Phosphatase 91 40-136 U/L Troponin I < 0.30 <0.30 NG/ML Total Protein 7.4 6.4-8.2 GM/DL Albumin 2.9 L 3.2-4.5 GM/DL Urine Color YELLOW Urine Clarity CLEAR Urine pH 5 5-9 Urine Specific [place] 1.020 1.016-1.022 Urine Protein 2+ H NEGATIVE Urine Glucose (UA) NEGATIVE NEGATIVE Urine Ketones NEGATIVE NEGATIVE Urine Nitrite NEGATIVE NEGATIVE Urine Bilirubin NEGATIVE NEGATIVE Urine Urobilinogen 4 H NORMAL MG/DL Urine Leukocyte Esterase NEGATIVE NEGATIVE Urine RBC (Auto) 3+ H NEGATIVE Urine RBC 5-10 H /HPF Urine WBC NONE /HPF Urine Squamous Epithelial Cells RARE /HPF Urine Crystals NONE /LPF Urine Bacteria NEGATIVE /HPF Urine Casts NONE /LPF Urine Mucus NEGATIVE /LPF Urine Culture Indicated NO Test 07/23/17 19:18 07/24/17 03:15 07/24/17 11:35 07/24/17 15:52 Range/Units White Blood Count 5.6 3.7 L 4.3-11.0 10^3/uL Red Blood Count 3.39 L 3.23 L 4.35-5.85 10^6/uL Hemoglobin 10.9 L 10.5 L 11.5-16.0 G/DL Hematocrit 34 L 34 L 35-52 % Mean Corpuscular Volume 102 H 105 H 80-99 FL Mean Corpuscular Hemoglobin 32 33 25-34 PG Mean Corpuscular Hemoglobin Concent 32 31 L 32-36 G/DL Red Cell Distribution Width 17.0 H 16.9 H 10.0-14.5 % Platelet Count 132 104 L 130-400 10^3/uL Mean Platelet Volume 10.2 10.2 7.4-10.4 FL Neutrophils (%) (Auto) 78 H 93 H 42-75 % Lymphocytes (%) (Auto) 9 L 4 L 12-44 % Monocytes (%) (Auto) 12 4 0-12 % Eosinophils (%) (Auto) 0 0 0-10 % Basophils (%) (Auto) 0 0 0-10 % Neutrophils # (Auto) 4.4 3.5 1.8-7.8 X 10^3 Lymphocytes # (Auto) 0.5 L 0.1 L 1.0-4.0 X 10^3 Monocytes # (Auto) 0.7 0.1 0.0-1.0 X 10^3 Eosinophils # (Auto) 0.0 0.0 0.0-0.3 10^3/uL Basophils # (Auto) 0.0 0.0 0.0-0.1 10^3/uL B-Type Natriuretic Peptide 150.8 H 169.3 H <100.0 PG/ML Sodium Level 142 135-145 MMOL/L Potassium Level 5.2 H 3.6-5.0 MMOL/L Chloride Level 106 98-107 MMOL/L Carbon Dioxide Level 24 21-32 MMOL/L Anion Gap 12 5-14 MMOL/L Blood Urea Nitrogen 26 H 7-18 MG/DL Creatinine 1.06 0.60-1.30 MG/DL Estimat Glomerular Filtration Rate 53 BUN/Creatinine Ratio 25 Glucose Level 205 H 70-105 MG/DL Calcium Level 8.7 8.5-10.1 MG/DL Total Bilirubin 0.7 0.1-1.0 MG/DL Aspartate Amino Transf (AST/SGOT) 21 5-34 U/L Alanine Aminotransferase (ALT/SGPT) 23 0-55 U/L Alkaline Phosphatase 74 40-136 U/L C-Reactive Protein High Sensitivity 7.04 H 0.00-0.50 MG/DL Total Protein 7.4 6.4-8.2 GM/DL Albumin 2.8 L 3.2-4.5 GM/DL Glucometer 177 H 193 H 70-110 MG/DL Test 07/24/17 21:24 Range/Units Glucometer 207 H 70-110 MG/DL Radiology NAME: [facility] REC#: [id number] PT STATUS: ADM IN : 1955 PHYSICIAN: SINDY VILLANUEVA MD ADMIT DATE: 07/23/17/ICU Signed Date of Exam: 07/23/17 CHEST 1 VIEW, AP/PA ONLY INDICATION: Shortness of breath. TECHNIQUE: Single-view chest at 7:08 p.m. CORRELATION STUDY: 07/20/2017. FINDINGS: Marked cardiac enlargement with prominent mediastinum does appear to be increased from prior study. Vasculature is largely obscured. Left diaphragm is largely obscured by the cardiac enlargement. There is some degree of atelectasis, infiltrate, or edema about the lung bases suggested. IMPRESSION: 1. Rather pronounced severity cardiac enlargement with prominent mediastinum does appear to be a change from prior study. Vasculature is largely obscured but does not appear to be adversely increased when compared to the prior examination. 2. Lung bases are largely obscured by the cardiac enlargement. Possibility of a basilar infiltrate, edema, and/or atelectasis along with effusions is not excluded. Dictated by: Dictated on workstation # [id number] Dict: 07/23/171928 Trans: 07/23/172226 Interpreted by: JUANITA WALDROP DO Electronically signed by: JUANITA WALDROP DO 07/23/172226 Physical Exam-([facility]C) Physical Exam Vital Signs VS - Last 72 Hours, by Label 07/23/17 07/23/17 07/23/17 07/23/17 17:19 17:41 18:30 21:40 Temp 97.6 Pulse 83 86 71 Resp 33 23 26 13 B/P (MAP) 129/84 (99) Pulse Ox 97 95 O2 Delivery Nasal Cannula O2 Flow Rate 10.00 60.00 60.00 60.00 07/23/17 07/23/17 07/23/17 07/23/17 21:45 21:55 21:59 22:00 Temp 97.6 97.7 Pulse 71 79 67 Resp 12 22 11 B/P (MAP) 138/72 139/68 (91) 134/69 (90) Pulse Ox 92 98 92 92 O2 Delivery NIV Bilevel NIV Bilevel NIV Bilevel NIV Bilevel O2 Flow Rate 60.00 10.00 60.00 60.00 07/23/17 07/24/17 07/24/17 07/24/17 22:16 00:00 00:00 00:41 Temp 98.1 Pulse 70 66 66 Resp 16 B/P (MAP) 138/72 (94) Pulse Ox 96 96 92 O2 Delivery NIV Bilevel NIV Bilevel O2 Flow Rate 60.00 60.00 07/24/17 07/24/17 07/24/17 07/24/17 01:00 01:47 02:00 04:00 Temp 97.6 Pulse 66 75 77 71 Resp 14 33 31 B/P (MAP) 150/73 (98) 134/66 (88) Pulse Ox 98 96 93 O2 Delivery NIV Bilevel NIV Bilevel O2 Flow Rate 50.00 60.00 60.00 07/24/17 07/24/17 07/24/17 07/24/17 04:00 07:00 07:09 08:00 Temp 96.9 Pulse 64 61 Resp 23 Pulse Ox 92 91 O2 Delivery NIV Bilevel NIV Bilevel O2 Flow Rate 60.00 50.00 50.00 07/24/17 07/24/17 07/24/17 07/24/17 08:00 08:00 09:00 09:12 Pulse 67 63 Resp 22 36 B/P (MAP) 140/54 (82) Pulse Ox 92 92 O2 Delivery NIV Bilevel NIV Bilevel NIV Bilevel O2 Flow Rate 50.00 50.00 50.00 FiO2 50 07/24/17 07/24/17 07/24/17 07/24/17 10:00 11:14 12:00 12:00 Temp 97.2 Pulse 64 62 Resp 22 26 B/P (MAP) 144/67 (92) Pulse Ox 90 90 O2 Delivery NIV Bilevel NIV Bilevel NIV Bilevel O2 Flow Rate 50.00 50.00 50.00 50.00 07/24/17 07/24/17 07/24/17 07/24/17 13:00 13:50 15:28 15:45 Pulse 53 63 63 Resp 36 27 Pulse Ox 92 95 O2 Delivery NIV Bilevel O2 Flow Rate 50.00 100.00 100.00 07/24/17 07/24/17 07/24/17 07/24/17 16:00 16:59 18:53 19:00 Pulse 70 70 Resp 26 Pulse Ox 91 94 O2 Delivery NIV Bilevel Vapotherm O2 Flow Rate 100.00 40.00 100.00 FiO2 100 07/24/17 07/24/17 07/24/17 07/24/17 20:00 20:00 21:00 21:25 Temp 98.0 Pulse 70 66 Resp 22 27 B/P (MAP) 163/67 (99) Pulse Ox 98 95 O2 Delivery NIV Bilevel NIV Bilevel NIV Bilevel O2 Flow Rate 100.00 100.00 100.00 FiO2 100 07/24/17 07/24/17 07/25/17 07/25/17 23:08 23:09 00:00 00:00 Temp 97.1 Pulse 73 72 Resp 22 20 B/P (MAP) 148/66 (93) Pulse Ox 100 99 O2 Delivery NIV Bilevel NIV Bilevel NIV Bilevel O2 Flow Rate 100.00 80.00 80.00 80.00 07/25/17 07/25/17 07/25/17 07/25/17 01:00 01:41 03:40 04:00 Temp 97.6 Pulse 75 62 67 66 Resp 16 25 23 B/P (MAP) 143/82 (102) Pulse Ox 95 95 98 O2 Delivery NIV Bilevel O2 Flow Rate 80.00 80.00 65.00 07/25/17 07/25/17 07/25/17 07/25/17 04:00 06:39 07:00 08:00 Temp 97.3 Pulse 60 61 70 Resp 12 21 B/P (MAP) 163/89 (113) Pulse Ox 95 92 O2 Delivery NIV Bilevel NIV Bilevel O2 Flow Rate 65.00 80.00 65.00 07/25/17 07/25/17 07/25/17 07/25/17 08:00 09:00 10:27 12:00 Pulse Ox 95 O2 Delivery NIV Bilevel NIV Bilevel Vapotherm NIV Bilevel O2 Flow Rate 65.00 40.00 65.00 FiO2 100 100 07/25/17 07/25/17 07/25/17 07/25/17 12:00 13:00 14:48 16:00 Temp 98.8 Pulse 68 73 70 Resp 22 24 B/P (MAP) 138/58 (84) 157/79 (105) Pulse Ox 100 96 95 O2 Delivery NIV Bilevel Vapotherm NIV Bilevel O2 Flow Rate 65.00 40.00 65.00 FiO2 100 07/25/17 07/25/17 07/25/17 07/25/17 16:00 16:36 18:17 18:42 Temp 98.3 97.1 Pulse 75 Resp 22 B/P (MAP) 167/76 (106) Pulse Ox 97 95 O2 Delivery NIV Bilevel Vapotherm Vapotherm O2 Flow Rate 65.00 100.00 40.00 40.00 FiO2 100 Capillary Refill : Greater Than 3 Seconds General Appearance: WD/WN, moderate distress, obese Eyes: Bilateral Eye Normal Inspection, Bilateral Eye EOMI HEENT: normal ENT inspection; No scleral icterus (R), No scleral icterus (L), No photophobia Neck: non-tender, full range of motion, supple, normal inspection; No lymphadenopathy (R), No lymphadenopathy (L) Respiratory: chest non-tender, respiratory distress, decreased breath sounds, accessory muscle use, rhonchi Cardiovascular: normal peripheral pulses, regular rate, rhythm, no gallop, systolic murmur Gastrointestinal: normal bowel sounds, non tender, soft, no organomegaly, no pulsatile mass Rectal: deferred Extremities: non-tender, normal inspection, no calf tenderness, slow capillary refill, swelling Neurologic/Psychiatric: mophead trimmer and wrapper II-XII nml as tested, no motor/sensory deficits, alert, normal mood/affect, oriented x 3 Skin: warm/dry, pallor Assessment/Plan Assessment/Plan Admission Dx Acute on Chronic Respiratory Failure Cardiomegaly Acute on Chronic Diastolic Heart Failure Paroxysmal Atrial Fibrillation COPD Tobacco Abuse Type II Diabetes Hepatitis C Morbid Obesity, BMI 75 Diabetic Neuropathy Admission Status: Inpatient Order (span 2 midnights) Reason for Inpatient Admission: respiratory support for overt respiratory failure Assessment & Plan Extensive discussion with patient about her need for BiPap at 100% and that we were currently at the maximum support we could give her. Discussed that pt's lungs were in very poor shape, and that while the echo results were not back yet , the size of her heart on the CXR indicated that it was likely that her heart had some tile and mottle supervisor damage, although we would likely not know which came first - her respiratory failure or her heart failure. But in either case, both of these vital systems were failing, and given the severity of her disease, and the rapidity with which it progressed, that this may be the event that ends her life. Patient is very insistent upon eating, and so was placed on vapotherm and allowed to eat, then placed back on bipap. 1930: Called back to speak with patient and her two daughters, who are now at bedside. Explained that patient was requiring 100% FiO2 on the BiPap, and had been since this afternoon. Discussed that since patient did not want to be intubated, which was reasonable considering it would likely be very difficult to get her off of the ventilator, that the patient and family were encouraged to discuss how patient might best like to spend her time. Even with the BiPap, she has increased work of breathing, although suspect that some of this is due to fatigue, as patient admits she is afraid to fall asleep in case she doesn't wake up again. Discussed with patient that we had medications available to help with air hunger, and that it might help her to rest and not struggle so hard to breathe, Discussed at length with patient and her family that we would pursue any and all options that they were interested in, and that we were most interested in fulfilling the patient's wishes, whether that be treatment, hospice, or a combination of various treatments. Also discussed at length that it was very difficult to predict a time frame in this type of situation, but that if patient continued to require 100% FiO2 on the BiPap overnight, then it was likely that her time would be more limited, but that given her overall clinical picture, I did not feel that she had a significant amount of time left. Assured patient and family that we were going to continue to treat her, and make her as comfortable as we could, and that we would definitely not intubate her for any reason. Daughters indicate that they are interested in hospice, and in taking patient home and keeping her comfortable. Will check back in with them in the morning, and consult hospice if that is still what they and the patient would like to do. Patient appears to have good family support, and while they are tearful and sad, as is the patient, all family present seem very supportive of patient's decision to be DNR/DNI and to pursue keeping her comfortable as possible. Will order ativan PRN for anxiety and air hunger, and patient may eat if desired. (1) Acute and chronic respiratory failure Status: Acute (2) COPD with asthma Status: Chronic (3) Personal history of DVT (deep vein thrombosis) Status: Chronic (4) Diabetic neuropathy Status: Chronic Qualifiers: Qualified Codes: E11.42 - Type 2 diabetes mellitus with diabetic polyneuropathy (5) Hepatitis C Status: Chronic Qualifiers: Qualified Codes: B19.20 - Unspecified viral hepatitis C without hepatic coma (6) Hypothyroidism Status: Chronic Qualifiers: Qualified Codes: E03.9 - Hypothyroidism, unspecified (7) Tobacco abuse Status: Chronic (8) History of intravenous drug abuse Status: Chronic (9) History of opioid abuse (10) Chronic back pain Status: Chronic Qualifiers: Qualified Codes: M54.9 - Dorsalgia, unspecified; G89.29 - Other chronic pain (11) Anxiety Status: Chronic (12) Cirrhosis of liver Status: Chronic Qualifiers: Qualified Codes: K74.60 - Unspecified cirrhosis of liver (13) Morbid obesity with BMI of 70 and over, adult Status: Chronic (14) Cardiomegaly Status: Acute (15) Moderate left ventricular hypertrophy Status: Chronic Assessment & Plan: per echo 07/24/2017 (16) Grade II diastolic dysfunction Assessment & Plan: per echo 07/24/2017 (17) Left atrial dilatation Assessment & Plan: per echo 07/24/2017 (18) Aortic valve sclerosis Assessment & Plan: per echo 07/24/2017 (19) Moderate tricuspid regurgitation Assessment & Plan: per echo 07/24/2017 (20) Pulmonary hypertension assoc with unclear multi-factorial mechanisms Assessment & Plan: per echo 07/24/2017 Clinical Quality Measures DVT/VTE Risk/Contraindication: Risk Factor Score Per Nursin RFS Level Per Nursing on Admit: 4+=Very High Copy Copies To 1: [facility]/SARAH WILSON DO Jul 24, 2017 16:34
--- NOTE | 2017-07-24 18:46 | Consultation-Cardiology ---
HPI-Cardiology Cardiology Consultation: Date of Consultation 07/24/17 Time Seen by Provider: 17:30 Date of Admission Attending Physician Sarah Godoy DO Admitting Physician Susy Contreras DO Consulting Physician ANIKET OLSON MD, MA, FACP, FACC, FSCAI, CCDS HPI: Chief Complaint: Dyspnea Cardiomegaly Ms. Kang is a 61 year old female admitted to ICU 5 from the ED. She is currently on Bi-pap. She reports she was just recently released from the hospital a day ago after being treated for pneumonia. She was to go see her primary physician in [place] yesterday d/t increasing SOB at home. She reports when she got to [place] she was too short of breath and weak to get out of the car. She reports occ non-productive cough for the last few days. She reports occ sharp stabbing chest pains which only last a few seconds and occur with or without activity or emotional stress. She states these have been present for several months. She states she is oxygen dependant at home, but has only been wearing it when she feels like she needs it. She reports chronic bilat LE edema which is least in the morning and worse at the end of the day. She denies any syncope or near syncope. No c/o palpitations. No c/o n/v/d. She reports she quit smoking approx 1 weeks ago. Review of Systems-Cardiology Review of Systems Constitutional: No chills, No fever; malaise Eyes: No vision change Ears/Nose/Throat: No epistaxis, No recent hearing loss Respiratory: As described under HPI Cardiovascular: As described under HPI Gastrointestinal: No constipation, No diarrhea, No nausea, No vomiting Genitourinary: No dysuria, No hematuria Skin: No rash, No ulcerations Psychiatric/Neurological: No seizure, No focal weakness, No syncope Hematologic: No bleeding abnormalities [id number]-[id number] Hx Patient Social History Alcohol Use: Denies Use Recreational Drug Use: No (past IV drug use per daughter) Smoking Status: Current Everyday Smoker Type Used: Cigarettes Recent Foreign Travel: No Recent Infectious Disease Expo: No Hospitalization with Isolation: Denies Physical Abuse Screen: No Sexual Abuse: No Immunizations Up To Date Date of Pneumonia Vaccine: Feb 12, 2009 Past Medical History PMH As described under Assessment. Family Medical History Family Medical History: Reports her mother had a CVA. Father had CAD. Allergies and Home Medications Allergies Coded Allergies: aspirin (Unverified Allergy, Severe, HIVES, DIFFICULTY BREATHING, 07/18/17) Penicillins (Unverified Allergy, Unknown, RASH, 08/11/16) Sulfa (Sulfonamide Antibiotics) (Unverified Allergy, Unknown, RASH, ) codeine (Verified Allergy, Unknown, 08/11/16) tetracycline (Unverified Allergy, Unknown, RASH, 08/11/16) Home Medications Azithromycin 250 Mg Tablet, 250 MG PO DAILY Prescribed by: RACHAEL PIPER on 07/20/17 1322 Prednisone 20 Mg Tab, 40 MG PO DAILY@0700 Prescribed by: RACHAEL PIPER on 07/20/17 1322 Patient Home Medication List Home Medication List Reviewed: Yes Physical Exam-Cardiology Physical Exam Vital Signs/I&O 07/24/17 07/24/17 07/24/17 07/24/17 07:00 07:09 08:00 08:00 Temp 96.9 Pulse 64 61 Resp 23 Pulse Ox 91 O2 Delivery NIV Bilevel NIV Bilevel O2 Flow Rate 50.00 50.00 50.00 07/24/17 07/24/17 07/24/17 07/24/17 08:00 09:00 09:12 10:00 Pulse 67 63 64 Resp 22 36 22 B/P (MAP) 140/54 (82) 144/67 (92) Pulse Ox 92 92 90 O2 Delivery NIV Bilevel NIV Bilevel NIV Bilevel O2 Flow Rate 50.00 50.00 50.00 FiO2 50 07/24/17 07/24/17 07/24/17 07/24/17 11:14 12:00 12:00 13:00 Temp 97.2 Pulse 62 53 Resp 26 Pulse Ox 90 O2 Delivery NIV Bilevel NIV Bilevel O2 Flow Rate 50.00 50.00 50.00 07/24/17 07/24/17 07/24/17 07/24/17 13:50 15:28 15:45 16:00 Pulse 63 63 Resp 36 27 Pulse Ox 92 95 O2 Delivery NIV Bilevel NIV Bilevel O2 Flow Rate 50.00 100.00 100.00 100.00 07/24/17 16:59 Pulse Ox 91 O2 Delivery Vapotherm O2 Flow Rate 40.00 FiO2 100 07/24/17 00:00 Intake Total 0 ml Output Total 425 ml Balance -425 ml Capillary Refill : Greater Than 3 Seconds Constitutional: AAO x 3, well-developed, well-nourished (obese), other ( morbidly obese) HEENT: PERRL, hearing is well preserved Neck: No carotid bruit; carotid pulses are 2 + bilaterally Respiratory: chest expansion is symmetric, chest is bilaterally symmetric, other (Bi-pap in place; diminished lower lobes with fair air entry) Cardiovascular: regular rate-rhythm; No JVD; S1 and S2 Gastrointestinal: soft, round, audible bowel sounds Rectal: deferred Genital/Rectal: other (Urinary catheter to DD; clear, yellow urine) Extremities: no lower extremity edema bilateral Neurologic/Psychiatric: grossly intact Skin: No rash, No ulcerations Data Review Labs Laboratory Tests 07/23/17 18:48: Urine Color YELLOW, Urine Clarity CLEAR, Urine pH 5, Urine Specific [place] 1.020, Urine Protein 2+H, Urine Glucose (UA) NEGATIVE, Urine Ketones NEGATIVE, Urine Nitrite NEGATIVE, Urine Bilirubin NEGATIVE, Urine Urobilinogen 4H, Urine Leukocyte Esterase NEGATIVE, Urine RBC (Auto) 3+H, Urine RBC 5-10H, Urine WBC NONE, Urine Squamous Epithelial Cells RARE, Urine Crystals NONE, Urine Bacteria NEGATIVE, Urine Casts NONE, Urine Mucus NEGATIVE, Urine Culture Indicated NO 07/23/17 19:18: White Blood Count 5.6, Red Blood Count 3.39L, Hemoglobin 10.9L, Hematocrit 34L, Mean Corpuscular Volume 102H, Mean Corpuscular Hemoglobin 32, Mean Corpuscular Hemoglobin Concent 32, Red Cell Distribution Width 17.0H, Platelet Count 132, Mean Platelet Volume 10.2, Neutrophils (%) (Auto) 78H, Lymphocytes (%) (Auto) 9L , Monocytes (%) (Auto) 12, Eosinophils (%) (Auto) 0, Basophils (%) (Auto) 0, Neutrophils # (Auto) 4.4, Lymphocytes # (Auto) 0.5L, Monocytes # (Auto) 0.7, Eosinophils # (Auto) 0.0, Basophils # (Auto) 0.0, B-Type Natriuretic Peptide 150.8H 07/24/17 03:15: White Blood Count 3.7L, Red Blood Count 3.23L, Hemoglobin 10.5L, Hematocrit 34L , Mean Corpuscular Volume 105H, Mean Corpuscular Hemoglobin 33, Mean Corpuscular Hemoglobin Concent 31L, Red Cell Distribution Width 16.9H, Platelet Count 104L, Mean Platelet Volume 10.2, Neutrophils (%) (Auto) 93H, Lymphocytes ( %) (Auto) 4L, Monocytes (%) (Auto) 4, Eosinophils (%) (Auto) 0, Basophils (%) ( Auto) 0, Neutrophils # (Auto) 3.5, Lymphocytes # (Auto) 0.1L, Monocytes # (Auto ) 0.1, Eosinophils # (Auto) 0.0, Basophils # (Auto) 0.0, B-Type Natriuretic Peptide 169.3H, Sodium Level 142, Potassium Level 5.2H, Chloride Level 106, Carbon Dioxide Level 24, Anion Gap 12, Blood Urea Nitrogen 26H, Creatinine 1.06 , Estimat Glomerular Filtration Rate 53, BUN/Creatinine Ratio 25, Glucose Level 205H, Calcium Level 8.7, Total Bilirubin 0.7, Aspartate Amino Transf (AST/SGOT) 21, Alanine Aminotransferase (ALT/SGPT) 23, Alkaline Phosphatase 74, C-Reactive Protein High Sensitivity 7.04H, Total Protein 7.4, Albumin 2.8L 07/24/17 11:35: Glucometer 177H 07/24/17 15:52: Glucometer 193H Microbiology 07/23/17 Blood Culture - Preliminary, Resulted No growth Laboratory Tests 07/23/17 18:35 07/23/17 19:18 07/24/17 03:15 A/P-Cardiology Assessment/Admission Diagnosis Acute on chronic resp failure likely multifactorial d/t obesity-hypoventilation syndrome, COPD, asthma, chronic anemia, diastolic dysfunction of LV Cardiomegaly seen on CXR of 07-23-17 Echo of 07/24/17: LVEF 70-75%, grade 2 diastolic dysfunction, mod dilatation of LA, mild to mod TR, PASP approx 40 mmHg Recently treated for pneumonia - dismissed 2 days ago Acute on chronic exacerbation of COPD H/O PAF for which she was on OAC, but this was stopped d/t bleeding (details unknown) and noncompliance Reported h/o allergy to ASA - reports hives 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 Is on supple oxygen, but has been noncompliant HTN Tobaccoism - quit one week ago Anemia of unknown etiology, probably related to CKD or ch disease, managed by pcp Discussion and Recomendations * Complex management due to multiple comorbidities * Continue current regimen * Advised to continue to refrain from tobacco use * Advised wgt loss * Advised compliance with treatment, including supple oxygen and sleep apnea eval/treatment * Monitor labs * I spoke with her and her daughter in detail and answered questions * Dr Ardon covering card svce until 07/30/17 Clinical Quality Measures DVT/VTE Risk/Contraindication: Risk Factor Score Per Nursin RFS Level Per Nursing on Admit: 4+=Very High ANIKET OLSON MD FACP FAC CCDS Jul 24, 2017 18:46
[2017-07-24] MEDS: LORazepam INJ 2 MG/ML (ATIVAN) VIAL IVP PRN (21:33)
[2017-07-24] MEDS: NS IV 1000 ML 1,000 ML IV SCH (23:35)
[2017-07-25] VITALS (9 sets, daily range): BP systolic 138–167; BP diastolic 58–89
[2017-07-25] MEDS: methylPREDNISolone 125 MG (Solu-MEDROL) VIAL IV SCH ×3 (00:29→12:29)
[2017-07-25] MEDS: RT-ALBUTEROL/IPRATROPIUM 3 ML (DUONEB) VIAL INH SCH ×6 (01:41→22:07)
[2017-07-25 04:19] LABS: HEMOGLOBIN 10.2 G/DL (11.5-16.0); MEAN PLATELET VOLUME 10.2 FL (7.4-10.4); RED BLOOD COUNT 3.3 10^6/uL (4.35-5.85); RED CELL DISTRIBUTION WIDTH 16.6 % (10.0-14.5); WHITE BLOOD COUNT 4.2 10^3/uL (4.3-11.0)
[2017-07-25 04:42] LABS: ALBUMIN 2.9 GM/DL (3.2-4.5); CALCIUM 8.7 MG/DL (8.5-10.1); CREATININE SERUM 1.15 MG/DL (0.60-1.30); MAGNESIUM 2.2 MG/DL (1.8-2.4); POTASSIUM 4.9 MMOL/L (3.6-5.0); TOTAL PROTEIN 7.6 GM/DL (6.4-8.2)
[2017-07-25 05:14] LABS: BILIRUBIN,TOTAL 0.7 MG/DL (0.1-1.0)
[2017-07-25] MEDS: inSUlin ASPART (NovoLOG) 1 UNIT/0.01 ML (CHARGE PER UNIT) SC SCH ×2 (06:00→12:28)
[2017-07-25] MEDS: FUROSEMIDE 40 MG/4 ML INJ (LASIX) IV SCH ×2 (06:43→16:14)
--- NOTE | 2017-07-25 08:42 | Progress Note (SOAP) ---
Subjective Subjective/Events-last exam Patient sitting up in bed, on vapotherm 40L at 100% FiO2. She reports that she slept very well last night, and that she understands that her time is short, and she would like to go home with hospice. Several grandchildren are present at the time of exam, and all report that family is very supportive of patient's decision. Patient was able to wean down to 65% FiO2 on bipap overnight, and her work of breathing appears significantly decreased compared to yesterday. Review of Systems Date Seen by Provider: Jul 25, 2017 Time Seen by Provider: 09:45 General: No Chills, No Night Sweats, No Fatigue HEENT: No Head Aches, No Dysphasia, No Sore Throat Pulmonary: Dyspnea; No Cough, No Pleuritic Chest Pain Cardiovascular: Edema; No: Chest Pain, Palpitations Gastrointestinal: No: Nausea, Vomiting, Abdominal Pain Genitourinary: No Dysuria, No Retention Musculoskeletal: No: neck pain, leg pain Neurological: No: Numbness, Incoordination, Change in speech, Confusion, Seizures Focused Exam Lactate Level 07/23/17 17:21: Lactic Acid Level 1.02 Objective Exam Last Set of Vital Signs Vital Signs Date Time Temp Pulse Resp B/P (MAP) Pulse Ox O2 Delivery O2 Flow Rate FiO2 07/25/17 08:00 97.3 70 21 163/89 (113) 92 NIV Bilevel 65.00 07/24/17 21:00 100 Capillary Refill : Greater Than 3 Seconds I&O Intake and Output 07/25/17 00:00 Intake Total 1090 ml Output Total 2925 ml Balance -1835 ml Intake Oral 350 ml IV Total 740 ml Output Urine Total 2925 ml General: Alert, Oriented X3, Cooperative, No Acute Distress HEENT: Atraumatic, EOMI, Mucous Memb Moist/[place] Neck: Supple, No Thyromegaly Lungs: Other (diminished with diffuse wheezing) Heart: Regular Rate, Normal S1, Normal S2, Other (systolic murmur) Abdomen: Normal Bowel Sounds, Soft, No Tenderness, No Masses Extremities: No Clubbing, No Cyanosis, Other (bilateral lower extremity edema) Skin: No Significant Lesion, Other (pt reports rash under breasts) Neuro: Normal Speech, Normal Tone, Sensation Intact, Cranial Nerves 3-12 NL Psych/Mental Status: Mental Status NL, Mood NL Results/Procedures Lab Laboratory Tests 07/24/17 11:35: Glucometer 177H 07/24/17 15:52: Glucometer 193H 07/24/17 21:24: Glucometer 207H 07/25/17 03:20: White Blood Count 4.2L, Red Blood Count 3.30L, Hemoglobin 10.2L, Hematocrit 34L , Mean Corpuscular Volume 104H, Mean Corpuscular Hemoglobin 31, Mean Corpuscular Hemoglobin Concent 30L, Red Cell Distribution Width 16.6H, Platelet Count 111L, Mean Platelet Volume 10.2, Sodium Level 143, Potassium Level 4.9, Chloride Level 103, Carbon Dioxide Level 30, Anion Gap 10, Blood Urea Nitrogen 32H, Creatinine 1.15, Estimat Glomerular Filtration Rate 48, BUN/Creatinine Ratio 28, Glucose Level 178H, Calcium Level 8.7, Magnesium Level 2.2, Total Bilirubin 0.7, Aspartate Amino Transf (AST/SGOT) 25, Alanine Aminotransferase ( ALT/SGPT) 24, Alkaline Phosphatase 73, Total Protein 7.6, Albumin 2.9L, Triglycerides Level 74, Cholesterol Level 93, LDL Cholesterol Direct 50, VLDL Cholesterol 15, HDL Cholesterol 28L, Thyroid Stimulating Hormone (TSH) 16.47H Microbiology 07/23/17 Blood Culture - Preliminary, Resulted No growth Radiology NAME: ALMA MEDRANO [facility] REC#: [id number] PT STATUS: ADM IN : 1955 PHYSICIAN: SINDY VILLANUEVA MD ADMIT DATE: 07/23/17/ICU Signed Date of Exam: 07/23/17 CHEST 1 VIEW, AP/PA ONLY INDICATION: Shortness of breath. TECHNIQUE: Single-view chest at 7:08 p.m. CORRELATION STUDY: 07/20/2017. FINDINGS: Marked cardiac enlargement with prominent mediastinum does appear to be increased from prior study. Vasculature is largely obscured. Left diaphragm is largely obscured by the cardiac enlargement. There is some degree of atelectasis, infiltrate, or edema about the lung bases suggested. IMPRESSION: 1. Rather pronounced severity cardiac enlargement with prominent mediastinum does appear to be a change from prior study. Vasculature is largely obscured but does not appear to be adversely increased when compared to the prior examination. 2. Lung bases are largely obscured by the cardiac enlargement. Possibility of a basilar infiltrate, edema, and/or atelectasis along with effusions is not excluded. Dictated by: Dictated on workstation # [id number] Dict: 07/23/171928 Trans: 07/23/172226 Interpreted by: JUANITA WALDROP DO Electronically signed by: JUANITA WALDROP DO 07/23/173 Assessment/Plan Assessment/Plan Assessment & Plan 07/24 Extensive discussion with patient about her need for BiPap at 100% and that we were currently at the maximum support we could give her. 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 But in either case, both of these vital systems were failing, and given the severity of her disease, and the rapidity with which it progressed, that this may be the event that ends her life. Patient is very insistent upon eating, and so was placed on vapotherm and allowed to eat, then placed back on bipap. 1930: Called back to speak with patient and her two daughters, who are now at bedside. Explained that patient was requiring 100% FiO2 on the BiPap, and had been since this afternoon. Discussed that since patient did not want to be intubated, which was reasonable considering it would likely be very difficult to get her off of the ventilator, that the patient and family were encouraged to discuss how patient might best like to spend her time. Even with the BiPap, she has increased work of breathing, although suspect that some of this is due to fatigue, as patient admits she is afraid to fall asleep in case she doesn't wake up again. Discussed with patient that we had medications available to help with air hunger, and that it might help her to rest and not struggle so hard to breathe, Discussed at length with patient and her family that we would pursue any and all options that they were interested in, and that we were most interested in fulfilling the patient's wishes, whether that be treatment, hospice, or a combination of various treatments. Also discussed at length that it was very difficult to predict a time frame in this type of situation, but that if patient continued to require 100% FiO2 on the BiPap overnight, then it was likely that her time would be more limited, but that given her overall clinical picture, I did not feel that she had a significant amount of time left. Assured patient and family that we were going to continue to treat her, and make her as comfortable as we could, and that we would definitely not intubate her for any reason. Daughters indicate that they are interested in hospice, and in taking patient home and keeping her comfortable. Will check back in with them in the morning, and consult hospice if that is still what they and the patient would like to do. Patient appears to have good family support, and while they are tearful and sad, as is the patient, all family present seem very supportive of patient's decision to be DNR/DNI and to pursue keeping her comfortable as possible. Will order ativan PRN for anxiety and air hunger, and patient may eat if desired. 07/25 -patient very clear this morning that she would like to go home on hospice; she will be going to her daughter's house in [place] -did well on bipap overnight and has notably decreased work of breathing this morning, although she still requires 100% FiO2 at 40L to maintain her sats at 92 % -family is very supportive of pt's decision, and multiple family members are returning from out of town, and also preparing daughter's house for pt to return to -consult to Hospice placed; pt will be using [facility] -will discontinue all non-comfort measures and transfer patient to floor -preparations will be made for needed equipment to be delivered to daughter's home and for patient to be transported there by non-emergent EMS, as her body habitus and oxygen requirement make transport by private vehicle less than ideal if avoidable -will continue to diurese patient while in the hospital, but will stop accuchecks and sliding scale at patient request -pt aware that she can have medication for pain, anxiety, or shortness of breath at any time she requests, and that she or her family should let staff know if she is not getting adequate relief and we will adjust her medications -visited with patient again later in the afternoon, her daughter is present, they both report that they are very comfortable with the decision to proceed with hospice and to stop all non-comfort measures -anticipate discharge to home with [facility] in 24-48 hours, once proper home equipment is in place for patient (1) Acute and chronic respiratory failure Status: Acute (2) COPD with asthma Status: Chronic (3) Personal history of DVT (deep vein thrombosis) Status: Chronic (4) Tobacco abuse Status: Chronic (5) Hypothyroidism Status: Chronic Qualifiers: Qualified Codes: E03.9 - Hypothyroidism, unspecified (6) Morbid obesity with BMI of 70 and over, adult Status: Chronic (7) Anxiety Status: Chronic (8) Hepatitis C Status: Chronic Qualifiers: Qualified Codes: B19.20 - Unspecified viral hepatitis C without hepatic coma (9) Cirrhosis of liver Status: Chronic Qualifiers: Qualified Codes: K74.60 - Unspecified cirrhosis of liver (10) Cardiomegaly Status: Acute (11) Diabetic neuropathy Status: Chronic Qualifiers: Qualified Codes: E11.42 - Type 2 diabetes mellitus with diabetic polyneuropathy (12) Chronic back pain Status: Chronic Qualifiers: Qualified Codes: M54.9 - Dorsalgia, unspecified; G89.29 - Other chronic pain (13) History of intravenous drug abuse Status: Chronic (14) History of opioid abuse (15) Aortic valve sclerosis (16) Left atrial dilatation (17) Moderate tricuspid regurgitation (18) Pulmonary hypertension assoc with unclear multi-factorial mechanisms (19) Grade II diastolic dysfunction (20) Moderate left ventricular hypertrophy Status: Chronic Clinical Quality Measures DVT/VTE Risk/Contraindication: Risk Factor Score Per Nursin RFS Level Per Nursing on Admit: 4+=Very High Copy Copies To 1: RACHAEL PIPER MD, MARGARET E DO Jul 25, 2017 08:42
[2017-07-25] MEDS ORDERED: ONDANSETRON 4 MG (ZOFRAN) ORAL DISSOLVE TAB PO PRN (15:00)
[2017-07-25] MEDS ORDERED: SCOPOLAMINE 1.5 MG (TRANSDERM-SCOP) PATCH TOP PRN (15:00)
--- NOTE | 2017-07-25 16:06 | Physical Therapy Evaluation ---
PT Evaluation-General Medical Diagnosis Admission Date Jul 23, 2017 at 20:48 Medical Diagnosis: end stage resp failure Onset Date: Jul 23, 2017 Therapy Diagnosis Therapy Diagnosis: impaired mobility, endurance Height/Weight Height (Feet): 5 Height (Inches): 0.00 Weight (Pounds): 383 Weight (Ounces): 5.0 Precautions Precautions/Isolations: Fall Prevention, Standard Precautions Referral Physician: Sarah Godoy DO Reason for Referral: Evaluation/Treatment Medical History Pertinent Medical History: CAD, COPD, DM, Neuropathy, Smoking Additional Medical History morbid obesity, cirrhosis Current History EMS called from home, O2 70% on RA Social History Home: Single Level Patient will be going home with her daughter on hospice, her daughter has 3 steps to enter her home and no handrails. Prior/Core FIM Prior Level of Function Functional [place] Measure 0=Not Assessed/NA 4=Minimal Assistance 1=Total Assistance 5=Supervision or Setup 2=Maximal Assistance 6=Modified [place] 3=Moderate Assistance 7=Complete [place] Bed Mobility: 6 Transfers (B,C,W/C) (FIM): 6 Gait: 6 PT Evaluation-Current Subjective Patient in bed pre tx, agrees to PT, would like to get up to bedside commode for BM. Patient is on a vapotherm. Patient has 7/10 pain in both legs due to neuropathy. Pt/Family Goals "to get stronger and get up to the commode now" Objective Patient Orientation: Normal For Age Attachments: Oxygen, Zheng Catheter, IV ROM/Strength ROM Lower Extremities limited generally due to morbid obesity Strength Lower Extremities 4/5 gross bilaterally Integumentary/Posture Bladder Incontinence: Zheng Cath Neuromuscular (Tone, Coordination, Reflexes) NT Sensory Vision: Functional Hearing: Functional Sensation Right Lower Extremit: Impaired Sensation Left Lower Extremity: Impaired Transfers Functional [place] Measure 0=Not Assessed/NA 4=Minimal Assistance 1=Total Assistance 5=Supervision or Setup 2=Maximal Assistance 6=Modified [place] 3=Moderate Assistance 7=Complete [place] Transfers (B, C, W/C) (FIM): 3 Scootin Rollin Supine to/from Sit: 2 Sit to/from Stand: 6 bed t/f WC(FIM only if WC use): 6 Patient needs mod assist for sit to supine because she needs assist with both legs. Balance Sitting Static: Normal Sitting Dynamic: Normal Standing Static: Good Standing Dynamic: Good Treatment Patient sat at the edge of the bed and then transferred to bedside commode,had BM. She needed a small 6" step to step up on so she can be tall enough to sit on the edge of the bed. Mod assist for sit to supine. Assessment/Needs Patient has impaired mobility, strength, endurance. Rehab Potential: Fair PT Short Term Goals Short Term Goals Time Frame: Aug 01, 2017 Transfers (B,C,W/C) (FIM): 7 Gait (FIM): 1 Gait Distance Comment: 20' Gait Level of Assist: 5 Gait Assistive Device: FWW PT Plan Problem List Problem List: Activity Tolerance, Functional Strength, Safety, Balance, Gait, Transfer, Bed Mobility Treatment/Plan Treatment Plan: Continue Plan of Care Treatment Plan: Bed Mobility, Education, Functional Activity Britta, Functional Strength, Gait, Safety, Therapeutic Exercise, Transfers Treatment Duration: Aug 01, 2017 Frequency: 6 times per week Estimated Hrs Per Day: .25 hour per day (15-30') Patient and/or Family Agrees t: Yes Safety Risks/Education Patient Education: Transfer Techniques, Correct Positioning, Safety Issues Teaching Recipient: Patient Teaching Methods: Demonstration, Discussion Response to Teaching: Reinforcement Needed Discharge Recommendations Plan Patient will perform bed mobility and transfer training, balance and endurance training, functional strengthening, gait training, stair training, and education , to improve functional mobility and independence at home. Therapy D/C Recommendations: Home w/ Family Support Time/GCodes Time In: 1515 Time Out: 1600 Total Billed Treatment Time: 45 Total Billed Treatment 1 visit EVM 15' FA 30' GLENDY GOODWIN PT Jul 25, 2017 16:06
[2017-07-25] MEDS: morphine INJ 4 MG/ML 1 ML (VIAL/SYRINGE) IVP PRN ×2 (16:12→20:42)
[2017-07-25] MEDS: NYSTATIN CREAM (MYCOSTATIN) 30 GM TUBE TP SCH ×2 (17:37→21:05)
[2017-07-25] MEDS: LORazepam INJ 2 MG/ML (ATIVAN) VIAL IVP PRN (22:21)
[2017-07-25] MEDS: NS IV 1000 ML 1,000 ML IV SCH (23:56)
[2017-07-25] MEDS: methylPREDNISolone 40 MG/ML (Solu-MEDROL) VIAL IV SCH (23:57)
[2017-07-26 00:10] VITALS: BP 164/92
[2017-07-26] MEDS: LORazepam 1 MG (ATIVAN) TAB PO PRN ×2 (00:22→02:49)
[2017-07-26] MEDS: RT-ALBUTEROL/IPRATROPIUM 3 ML (DUONEB) VIAL INH SCH ×3 (02:37→10:43)
[2017-07-26 04:05] VITALS: BP 177/91
[2017-07-26] MEDS: morphine INJ 4 MG/ML 1 ML (VIAL/SYRINGE) IVP PRN ×3 (04:07→08:06)
[2017-07-26] MEDS: LORazepam INJ 2 MG/ML (ATIVAN) VIAL IVP PRN ×6 (04:16→12:36)
[2017-07-26] MEDS ORDERED: LORazepam INJ 2 MG/ML (ATIVAN) VIAL ONE (04:52)
[2017-07-26] MEDS ORDERED: morphine INJ 4 MG/ML 1 ML (VIAL/SYRINGE) ONE (05:28)
[2017-07-26] MEDS: FUROSEMIDE 40 MG/4 ML INJ (LASIX) IV SCH (06:43)
[2017-07-26] MEDS: methylPREDNISolone 40 MG/ML (Solu-MEDROL) VIAL IV SCH (06:43)
[2017-07-26 08:00] VITALS: BP 143/77
--- NOTE | 2017-07-26 09:17 | Physical Therapy Progress Note ---
Therapy Progress Note Patient is currently on BiPap for comfort. Per RN, patient will transfer to comfort care status on this date. PT to dismiss patient from services at this time. Multiple family members present. Patient is unresponsive. OTF AGUILA PT Jul 26, 2017 09:17
[2017-07-26] MEDS: NYSTATIN CREAM (MYCOSTATIN) 30 GM TUBE TP SCH ×2 (10:22→13:02)
[2017-07-26] MEDS ORDERED: LORazepam INJ 2 MG/ML (ATIVAN) VIAL IV NR (12:50)
[2017-07-26] MEDS ORDERED: morphine INJ 10 MG/ML 1ML (SYR OR VIAL) IV NR (12:51)
[2017-07-26] MEDS ORDERED: morphine INJ 10 MG/ML 1ML (SYR OR VIAL) IV PRN (13:00)
[2017-07-26] MEDS ORDERED: LORazepam INJ 2 MG/ML (ATIVAN) VIAL IV PRN (13:00)
--- NOTE | 2017-07-26 14:54 | Discharge Summary ---
Diagnosis/Chief Complaint Date of Admission Jul 23, 2017 at 20:48 Date of Discharge 07/26/17 1318 Admission Diagnosis Admission Diagnosis Acute on Chronic Respiratory Failure Cardiomegaly Acute on Chronic Diastolic Heart Failure Paroxysmal Atrial Fibrillation COPD Tobacco Abuse Type II Diabetes Hepatitis C Morbid Obesity, BMI 75 Diabetic Neuropathy Discharge Diagnosis (1) Acute and chronic respiratory failure Status: Acute (2) COPD with asthma Status: Chronic (3) Personal history of DVT (deep vein thrombosis) Status: Chronic (4) Tobacco abuse Status: Chronic (5) Hypothyroidism Status: Chronic Qualifiers: Qualified Codes: E03.9 - Hypothyroidism, unspecified (6) Morbid obesity with BMI of 70 and over, adult Status: Chronic (7) Anxiety Status: Chronic (8) Hepatitis C Status: Chronic Qualifiers: Qualified Codes: B19.20 - Unspecified viral hepatitis C without hepatic coma (9) Cirrhosis of liver Status: Chronic Qualifiers: Qualified Codes: K74.60 - Unspecified cirrhosis of liver (10) Cardiomegaly Status: Acute (11) Diabetic neuropathy Status: Chronic Qualifiers: Qualified Codes: E11.42 - Type 2 diabetes mellitus with diabetic polyneuropathy (12) Chronic back pain Status: Chronic Qualifiers: Qualified Codes: M54.9 - Dorsalgia, unspecified; G89.29 - Other chronic pain (13) History of intravenous drug abuse Status: Chronic (14) History of opioid abuse (15) Aortic valve sclerosis (16) Left atrial dilatation (17) Moderate tricuspid regurgitation (18) Pulmonary hypertension assoc with unclear multi-factorial mechanisms (19) Grade II diastolic dysfunction (20) Moderate left ventricular hypertrophy Status: Chronic 07/24 Extensive discussion with patient about her need for BiPap at 100% and that we were currently at the maximum support we could give her. Discussed that pt's lungs were in very poor shape, and that while the echo results were not back yet , the size of her heart on the CXR indicated that it was likely that her heart had some longterm damage, although we would likely not know which came first - her respiratory failure or her heart failure. But in either case, both of these vital systems were failing, and given the severity of her disease, and the rapidity with which it progressed, that this may be the event that ends her life. Patient is very insistent upon eating, and so was placed on vapotherm and allowed to eat, then placed back on bipap. 1930: Called back to speak with patient and her two daughters, who are now at bedside. Explained that patient was requiring 100% FiO2 on the BiPap, and had been since this afternoon. Discussed that since patient did not want to be intubated, which was reasonable considering it would likely be very difficult to get her off of the ventilator, that the patient and family were encouraged to discuss how patient might best like to spend her time. Even with the BiPap, she has increased work of breathing, although suspect that some of this is due to fatigue, as patient admits she is afraid to fall asleep in case she doesn't wake up again. Discussed with patient that we had medications available to help with air hunger, and that it might help her to rest and not struggle so hard to breathe, Discussed at length with patient and her family that we would pursue any and all options that they were interested in, and that we were most interested in fulfilling the patient's wishes, whether that be treatment, hospice, or a combination of various treatments. Also discussed at length that it was very difficult to predict a time frame in this type of situation, but that if patient continued to require 100% FiO2 on the BiPap overnight, then it was likely that her time would be more limited, but that given her overall clinical picture, I did not feel that she had a significant amount of time left. Assured patient and family that we were going to continue to treat her, and make her as comfortable as we could, and that we would definitely not intubate her for any reason. Daughters indicate that they are interested in hospice, and in taking patient home and keeping her comfortable. Will check back in with them in the morning, and consult hospice if that is still what they and the patient would like to do. Patient appears to have good family support, and while they are tearful and sad, as is the patient, all family present seem very supportive of patient's decision to be DNR/DNI and to pursue keeping her comfortable as possible. Will order ativan PRN for anxiety and air hunger, and patient may eat if desired. 07/25 -patient very clear this morning that she would like to go home on hospice; she will be going to her daughter's house in [place] -did well on bipap overnight and has notably decreased work of breathing this morning, although she still requires 100% FiO2 at 40L to maintain her sats at 92 % -family is very supportive of pt's decision, and multiple family members are returning from out of town, and also preparing daughter's house for pt to return to -consult to Hospice placed; pt will be using [facility] -will discontinue all non-comfort measures and transfer patient to floor -preparations will be made for needed equipment to be delivered to daughter's home and for patient to be transported there by non-emergent EMS, as her body habitus and oxygen requirement make transport by private vehicle less than ideal if avoidable -will continue to diurese patient while in the hospital, but will stop accuchecks and sliding scale at patient request -pt aware that she can have medication for pain, anxiety, or shortness of breath at any time she requests, and that she or her family should let staff know if she is not getting adequate relief and we will adjust her medications -visited with patient again later in the afternoon, her daughter is present, they both report that they are very comfortable with the decision to proceed with hospice and to stop all non-comfort measures -anticipate discharge to home with [facility] in 24-48 hours, once proper home equipment is in place for patient 07/26 -patient with worsening pain overnight, including chest pain -this morning patient is unresponsive, and family is planning to turn off bipap once remaining family members arrive -continue morphine and ativan PRN 1300 - patient medicated with morphine and ativan for comfort at request of family, 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 1318 - patient was noted to be pulseless and apneic, without corneal reflex or pupillary response. Time of called. Family remains at bedside. Body to be released to home when family is ready. Chief Complaint/HPI Chief Complaint/HPI Patient discharged on sunday after hospitalization for PNA. Patient was discharged with oxygen but not bipap. Apparently home O2 was not sufficient, and EMS was called; on arrival pt ws noted to have O2 sat of 70% on RA. Duoneb and 10L per facemask given en route to ED. Significant cardiomegaly noted on CXR; admitted for acute on chronic heart failure and aggressive diuresis; pt bipap dependent at the time of admission. Discharge Summary-Simple/Stand Consultations Cardiology Discharge Physical Examination Allergies: Coded Allergies: aspirin (Unverified Allergy, Severe, HIVES, DIFFICULTY BREATHING, 07/18/17) Penicillins (Unverified Allergy, Unknown, RASH, 08/11/16) Sulfa (Sulfonamide Antibiotics) (Unverified Allergy, Unknown, RASH, ) codeine (Verified Allergy, Unknown, 08/11/16) tetracycline (Unverified Allergy, Unknown, RASH, 08/11/16) Vitals & I&Os Vital Sign - Last 12Hours Date Time Temp Pulse Resp B/P (MAP) Pulse Ox O2 Delivery O2 Flow Rate FiO2 07/26/17 09:36 100 17 78 100.00 07/26/17 09:00 NIV Bilevel 100 07/26/17 08:00 98.7 143/77 (99) Intake and Output 07/26/17 00:00 Intake Total 2150 ml Output Total 4425 ml Balance -2275 ml General Appearance: Severe Distress, Other (ashen color, significant work of breathing, nonresponsive) HEENT: Atraumatic Respiratory: Other (diminished and coarse with significant work of breathing and bipap in place; bipap removed and agonal respirations noted) Cardiovascular: Other (no heart sounds) Neuro: Other (unresponsive) Hospital Course See final discharge diagnosis. Radiology Reviewed NAME: ALMA MEDRANO [facility] REC#: [id number] PT STATUS: ADM IN : 1955 PHYSICIAN: SINDY VILLANUEVA MD ADMIT DATE: 07/23/17/ICU Signed Date of Exam: 07/23/17 CHEST 1 VIEW, AP/PA ONLY INDICATION: Shortness of breath. TECHNIQUE: Single-view chest at 7:08 p.m. CORRELATION STUDY: 07/20/2017. FINDINGS: Marked cardiac enlargement with prominent mediastinum does appear to be increased from prior study. Vasculature is largely obscured. Left diaphragm is largely obscured by the cardiac enlargement. There is some degree of atelectasis, infiltrate, or edema about the lung bases suggested. IMPRESSION: 1. Rather pronounced severity cardiac enlargement with prominent mediastinum does appear to be a change from prior study. Vasculature is largely obscured but does not appear to be adversely increased when compared to the prior examination. 2. Lung bases are largely obscured by the cardiac enlargement. Possibility of a basilar infiltrate, edema, and/or atelectasis along with effusions is not excluded. Dictated by: Dictated on workstation # [id number] Dict: 07/23/171928 Trans: 07/23/172226 Interpreted by: JUANITA WALDROP DO Electronically signed by: JUANITA WALDROP DO 07/23/172226 Discharge Condition at discharge Instructions to patient/family Please see electronic discharge instructions given to patient. Discharge Medications Reviewed and agree with Discharge Medication list on patient's Discharge Instruction sheet Clinical Quality Measures DVT/VTE Risk/Contraindication: Risk Factor Score Per Nursin RFS Level Per Nursing on Admit: 4+=Very High Comfort Measures/ Date of : Jul 26, 2017 Time of : 13:18 Copy Copies To 1: RACHAEL PIPER MD, MARGARET E DO Jul 26, 2017 14:54
== END 2017-07-26 15:41 | disposition expired | DRG 291 ==
LOC: EDUNIT# 17:19 → ER 17:20 → ICU 20:48 → 4TH 07-25 17:17
PROVIDERS: ADMIT Family Medicine; ATTEND Family Medicine
DX: I11.0 Hypertensive heart disease with heart failure (principal); I50.33 Acute on chronic diastolic (congestive) heart failure; J96.02 Acute respiratory failure with hypercapnia; J96.01 Acute respiratory failure with hypoxia; J44.0 Chronic obstructive pulmonary disease with (acute) lower respiratory infection; E66.2 Morbid (severe) obesity with alveolar hypoventilation; J44.1 Chronic obstructive pulmonary disease with (acute) exacerbation; Z66 Do not resuscitate; Z51.5 Encounter for palliative care; Z68.45 Body mass index [BMI] 70 or greater, adult; E11.40 Type 2 diabetes mellitus with diabetic neuropathy, unspecified; E11.21 Type 2 diabetes mellitus with diabetic nephropathy; I48.0 Paroxysmal atrial fibrillation; E87.5 Hyperkalemia; B19.20 Unspecified viral hepatitis C without hepatic coma; E03.9 Hypothyroidism, unspecified; M54.9 Dorsalgia, unspecified; D63.8 Anemia in other chronic diseases classified elsewhere; G93.0 Cerebral cysts; G43.909 Migraine, unspecified, not intractable, without status migrainosus; F17.210 Nicotine dependence, cigarettes, uncomplicated; Z86.718 Personal history of other venous thrombosis and embolism; Z79.4 Long term (current) use of insulin; Z99.81 Dependence on supplemental oxygen; Z87.01 Personal history of pneumonia (recurrent); I27.20 Pulmonary hypertension, unspecified; K74.60 Unspecified cirrhosis of liver; I08.2 Rheumatic disorders of both aortic and tricuspid valves
CPT/HCPCS: 36415; 51702; 71045; 80053; 80061; 81000; 82805; 82962; 83605; 83735; 83880; 84443; 84484; 85025; 85027; 85610; 85730; 86141; 87040; 93005; 93306; 94640; 94660; 94760; 96374; 96375